=== PATIENT | female | born 1945 | race Caucasian/White ===

== ENCOUNTER 2023-05-07 08:17 | Observation (INO) | payer MEDICARE, BC, OTHER, SELFPAY ==
[2023-05-07] VITALS (31 sets, daily range): BP systolic 110–176; BP diastolic 49–79; PULSE 58–72; RESP 16–18; TEMP 37.1–37.7; O2SAT 91–97; BMI 35.2
--- NOTE | 2023-05-07 08:46 | CRLHL7_ITS ---
For Patients: As a result of the Century Cures Act, medical imaging exams and procedure reports are released immediately into your electronic medical record. You may view this report before your referring provider. If you have questions, please contact your health care provider. INDICATION: Chest pain. TECHNIQUE: CT chest PE was acquired with 95 cc Isovue 370 IV contrast. COMPARISON: None available. FINDINGS: Heart and vasculature: Contrast opacification of the pulmonary arterial tree is adequate. No sign of pulmonary embolism. Heart size is normal. Thoracic aorta and pulmonary artery are normal in caliber. AICD leads within the right atrium and ventricle. Atherosclerotic coronary artery calcifications as well as thoracic aortic calcifications. Lungs and pleura: Linear scarring versus subsegmental atelectasis in the right lower lobe. Calcified granuloma within the superior aspect of the right lower lobe. Mild dependent ground-glass opacities in both upper lobes. No suspicious pulmonary nodules. No pleural effusions, pleural thickening, or pneumothorax. Lymph nodes/mediastinum: No mediastinal, hilar, or axillary adenopathy. Calcified right hilar lymph nodes. Chest wall: AICD generator overlies the left chest. Upper abdomen: Accessory left hepatic artery arising from the left gastric artery. Bones: Unremarkable for age. IMPRESSION: 1. No evidence of pulmonary embolism. 2. Coronary and aortic atherosclerosis. Please note that all CT scans at this facility use dose modulation, iterative reconstruction, and/or weight-based dosing when appropriate to reduce radiation dose to as low as reasonably achievable. Dictated by Kamille Diaz MD @ 05/07/2023 11:35:04 AM (Electronically Signed)
--- NOTE | 2023-05-07 08:46 | CRLHL7_ITS ---
For Patients: As a result of the Century Cures Act, medical imaging exams and procedure reports are released immediately into your electronic medical record. You may view this report before your referring provider. If you have questions, please contact your health care provider. INDICATION: Nausea, weakness.. TECHNIQUE: CT abdomen and pelvis acquired with 95 cc Isovue 370 IV contrast. COMPARISON: None available.. FINDINGS: Lower chest: Linear scarring versus subsegmental atelectasis within the right lung base. Atherosclerotic coronary artery calcifications. Partially visualized pacemaker leads. Liver: Unremarkable. Normal in size and attenuation. No suspicious masses. Gallbladder and bile ducts: Unremarkable. No stones or inflammation. No biliary dilatation. Pancreas: Unremarkable. No mass or inflammation. Spleen: Calcified granulomas within the spleen. Adrenal glands: Unremarkable. No nodules. Kidneys: Unremarkable. No suspicious masses, stones, or hydronephrosis. GI tract: Unremarkable. Normal in caliber. No sign of mass or inflammation. Normal appendix. Vasculature: Abdominal aorta is normal in caliber with atherosclerotic calcifications. Mesenteric arteries are patent. Lymph nodes: No lymphadenopathy. Peritoneum/Abdominal Wall: Unremarkable. No sign of mass or infiltration. No free air or significant free fluid. Pelvis: The bladder is partially decompressed. Uterus is surgically absent. No pelvic masses identified. Bones: Right sacral nerve stimulator with generator overlying the left lower back. Multilevel degenerative disc disease involving the thoracolumbar spine. IMPRESSION: No acute abnormality identified in the abdomen or pelvis. Please note that all CT scans at this facility use dose modulation, iterative reconstruction, and/or weight-based dosing when appropriate to reduce radiation dose to as low as reasonably achievable. Dictated by Kamille Diaz MD @ 05/07/2023 11:25:15 AM (Electronically Signed)
--- NOTE | 2023-05-07 08:49 | ED_ITS ---
HPI - General Adult General Time Seen by Provider: 08:49 Date Seen: 05/07/23 Chief complaint: Chest Pain Stated complaint: weakness Time Seen by Provider: 05/07/23 08:34 Source: patient Mode of arrival: EMS History of Present Illness HPI narrative: Patient is a 77 year white female lives in [place], was seen in the [place] ED yesterday and had multiple blood tests done including cardiac enzymes and an EKG, that apparently were normal. She reports she had a negative COVID test. The patient continues to feel weak and in fact could not get out of bed today. They had to call the ambulance and they decided to come to the [place] [facility]. The patient denies chest pain, but she does report she has had several heart attacks, she did not have bypass and could not be stented as they tried, but there was no stenting completed. The patient has been on isosorbide and carvedilol. Patient also takes lisinopril. Patient really denies chest pain but says she has had some intermittent neck pain generalized weakness, no dysuria, no frequency, no cough no real specific chest pain. No leg swelling or edema. Related Data Home Medications Medication Instructions Recorded Confirmed allopurinol 100 mg tablet 200 mg PO DAILY 05/07/23 05/07/23 aspirin 81 mg tablet,delayed 81 mg PO DAILY 05/07/23 05/07/23 release (Adult Aspirin Regimen) carvedilol 6.25 mg tablet 6.25 mg PO BID 05/07/23 05/07/23 guanfacine 1 mg tablet 0.5 mg PO HS 05/07/23 05/07/23 isosorbide mononitrate 120 mg 120 mg PO DAILY 05/07/23 05/07/23 tablet,extended release 24 hr lisinopril 10 mg tablet 10 mg PO BID 05/07/23 05/07/23 nitroglycerin 0.4 mg sublingual 0.4 mg sublingual Q5M PRN 05/07/23 05/07/23 tablet omeprazole 40 mg capsule,delayed 40 mg PO DAILY 05/07/23 05/07/23 release oxybutynin chloride 5 mg 5 mg PO DAILY 05/07/23 05/07/23 tablet,extended release 24 hr Allergies Allergy/AdvReac Type Severity Reaction Status Date / Time amlodipine AdvReac Dizziness Verified 05/07/23 10:47 nortriptyline [From Pamelor] AdvReac syncope Verified 05/07/23 10:47 Review of Systems Status of ROS: Reports: 10 or more systems reviewed and unremarkable except as noted in History and below [facility] Social History Smoking Status: Never smoker Do you use any of these nicotine containing products: None How often do you have a drink containing alcohol: never How often do you have six or more drinks on one occasion: Never AUDIT-C Alcohol total score: 0 Non-prescribed substance use: denies use Exam Narrative: Exam Narrative: Objective: Patient has a temperature of 99.9?, O2 sat is 91% on room air BMI is elevated HEENT is unremarkable, mouth slightly dry, neck is supple Chest is diminished air exchange no rales or wheezing Heart rhythm rate and rhythm regular Abdomen obese nontender no masses Extremities are no edema neurologic nonfocal, chronic stasis changes in her legs, increased vascularity superficially Neurologic nonfocal moves all extremities Patient with aid was able to sit up, but she is quite weak and 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 Const: Vital Signs, click to edit/add: Vital Signs - 24 hr 05/07/23 08:26 05/07/23 09:12 05/07/23 09:15 Temperature 99.9 F H Pulse Rate 70 70 Pulse Rate [Pulse Oximeter] 72 Respiratory Rate 18 Blood Pressure Blood Pressure [Ri ght Upper Arm] 133/65 Pulse Oximetry 91 95 95 Oxygen Delivery Me thod Room Air Nasal Cannula Nasal Cannula Oxygen Flow Rate 1 1 05/07/23 09:17 05/07/23 09:41 05/07/23 09:43 Temperature Pulse Rate 70 70 70 Pulse Rate [Pulse Oximeter] Respiratory Rate Blood Pressure 110/49 L 122/61 Blood Pressure [Ri ght Upper Arm] Pulse Oximetry 95 94 93 Oxygen Delivery Me thod Nasal Cannula Nasal Cannula Nasal Cannula Oxygen Flow Rate 1 1 1 05/07/23 09:45 05/07/23 09:47 05/07/23 10:00 Temperature Pulse Rate 70 70 70 Pulse Rate [Pulse Oximeter] Respiratory Rate Blood Pressure 126/72 Blood Pressure [Ri ght Upper Arm] Pulse Oximetry 93 94 92 Oxygen Delivery Me thod Nasal Cannula Room Air Room Air Oxygen Flow Rate 1 05/07/23 10:02 05/07/23 10:09 05/07/23 10:15 Temperature Pulse Rate 70 70 Pulse Rate [Pulse Oximeter] Respiratory Rate Blood Pressure 121/56 L Blood Pressure [Ri ght Upper Arm] Pulse Oximetry 93 92 91 Oxygen Delivery Me thod Room Air Room Air Oxygen Flow Rate 05/07/23 11:12 05/07/23 11:14 05/07/23 11:15 Temperature 99.1 F Pulse Rate 70 70 Pulse Rate [Pulse Oximeter] Respiratory Rate 18 Blood Pressure Blood Pressure [Ri ght Upper Arm] Pulse Oximetry 93 94 Oxygen Delivery Me thod Room Air Oxygen Flow Rate 05/07/23 11:30 05/07/23 11:33 05/07/23 11:45 Temperature Pulse Rate 71 69 70 Pulse Rate [Pulse Oximeter] Respiratory Rate Blood Pressure 133/60 Blood Pressure [Ri ght Upper Arm] Pulse Oximetry 94 94 97 Oxygen Delivery Me thod Room Air Room Air Room Air Oxygen Flow Rate 05/07/23 12:00 05/07/23 12:02 05/07/23 12:03 Temperature Pulse Rate 69 70 70 Pulse Rate [Pulse Oximeter] Respiratory Rate Blood Pressure 134/66 Blood Pressure [Ri ght Upper Arm] Pulse Oximetry 96 95 95 Oxygen Delivery Me thod Room Air Room Air Oxygen Flow Rate 05/07/23 12:32 05/07/23 12:42 05/07/23 12:45 Temperature Pulse Rate 71 72 Pulse Rate [Pulse Oximeter] Respiratory Rate Blood Pressure 147/79 H Blood Pressure [Ri ght Upper Arm] Pulse Oximetry 93 94 Oxygen Delivery Me thod Room Air Room Air Room Air Oxygen Flow Rate Course Vital Signs Vital signs: Initial Vital Signs Temperature 99.9 F H 05/07/23 08:26 Temperature Source Temporal Artery Scan 05/07/23 08:26 Pulse Rate 72 05/07/23 08:26 Respiratory Rate 18 05/07/23 08:26 Blood Pressure 133/65 05/07/23 08:26 Blood Pressure Mean 87 05/07/23 08:26 Blood Pressure Position Sitting 05/07/23 08:26 Pulse Oximetry 91 05/07/23 08:26 Oxygen Delivery Method Room Air 05/07/23 08:26 Vital Signs Temperature 99.9 F H 05/07/23 08:26 Pulse Rate 72 05/07/23 08:26 Respiratory Rate 18 05/07/23 08:26 Blood Pressure 133/65 05/07/23 08:26 Pulse Oximetry 91 05/07/23 08:26 Oxygen Delivery Method Room Air 05/07/23 08:26 Temperature 99.4 F 05/07/23 13:49 Pulse Rate 72 05/07/23 12:45 Respiratory Rate 18 05/07/23 11:14 Blood Pressure 147/79 H 05/07/23 12:32 Pulse Oximetry 94 05/07/23 12:45 Oxygen Delivery Method Room Air 05/07/23 12:45 Oxygen Flow Rate 1 05/07/23 09:45 Medical Decision Making MDM Narrative Medical decision making narrative: [age] white female with elevated BMI, history of MIs x3 without ability to stent or bypass, [id number] diabetes presents with several day history of profound weakness, unable to get a bed today unable to walk. Patient had a negative COVID yesterday. At this point I think given her complaints of neck discomfort, low-grade fever, weakness, rule out bacteremia, rule out pulmonary infection, rule out COVID/influenza/RSV. Patient also needs to have acute coronary syndrome ruled out. Her EKG today shows normal sinus rhythm short MT interval but no acute ST T wave changes by my read. Will give her some IV fluid depending on her clinical response after lab review and imaging review, disposition planning. Lab Data Labs: Lab Results 05/07/23 05/07/23 05/07/23 Range/Units 09:00 09:12 09:25 WBC 14.74 H (4.50-11.00) K/uL RBC 3.21 L (4.00-5.20) m/uL Hgb 10.5 L (12.0-16.0) gm/dL Hct 32.2 L (33.0-51.0) % MCV 100 (80-100) fL MCH 33 (26-34) pg MCHC 33 (32-36) gm/dL RDW Coeff of Carol 14.4 (11.5-15.5) % Plt Count 258 (140-440) K/uL Neut % (Auto) 84.3 H (42.0-72.0) % Lymph % (Auto) 9.0 L (20-44) % [place] % (Auto) 6.2 (0.0-11.0) % Eos % (Auto) 0.1 (0.0-7.0) % Baso % (Auto) 0.1 (0.0-3.0) % Neut # (Auto) 12.40 H (1.7-7.0) K/uL Lymph # (Auto) 1.30 (0.90-2.90) K/uL [place] # (Auto) 0.90 (0.00-0.90) K/UL Eos # (Auto) 0.00 (0.00-0.50) K/uL Baso # (Auto) 0.00 (0.00-0.30) K/uL Abs Immat Gran (auto) 0.00 (0.00-0.30) K/uL Imm/Tot Granulo (auto) 0.3 % INR 1.05 (0.91-1.10) APTT 31 (23-33) Seconds D-Dimer Quant (PE/DVT) 0.76 H (0.00-0.50) ug/ml Sodium 136 (135-149) mmol/L Potassium 4.7 (3.6-5.1) mmol/L Chloride 108 (96-114) mmol/L Carbon Dioxide 18 L (20-32) mmol/L Anion Gap 10 (7-15) mEq/L BUN 30 (7-30) mg/dL Creatinine 1.6 H (0.5-1.5) mg/dL Estimated GFR 33 ml/min Glucose 152 H (60-115) mg/dL Calcium 9.4 (8.4-10.6) mg/dL Total Bilirubin 0.6 (0.1-1.5) mg/dL Direct Bilirubin 0.0 (0.0-0.5) mg/dL AST 22 (12-35) U/L ALT 15 (4-35) U/L Alkaline Phosphatase 91 (40-150) U/L Troponin I < 0.01 L (0.01-0.04) ng/mL C-Reactive Protein 5.9 H (0.5-1.0) mg/dL NT-Pro-B Natriuret Pep 1470 pg/mL Total Protein 6.8 (6.0-8.3) g/dL Albumin 3.8 (3.3-5.0) g/dL Urine Color Yellow (Yellow) Urine Appearance Clear (Clear) Urine pH 5.5 (5.0-8.5) Ur Specific [place] 1.020 (1.000-1.030) Urine Protein 1+ A (Negative) Urine Glucose (UA) Negative (Negative) Urine Ketones Negative (Negative) Urine Blood Negative (Negative) Urine Nitrite Negative (Negative) Urine Bilirubin Negative (Negative) Urine Urobilinogen 0.2 (0.2-1.0) Ur Leukocyte Esterase Negative (Negative) Urine RBC 0-2 (0-2) Urine WBC 0-2 (0-5) Ur Squamous Epith Cells Moderate A (None-Few) Urine Bacteria Few A (None) SARS-CoV-2 (PCR) Negative SARS-CoV-2 (Negative) Influenza Type A (PCR) Negative PCR FLU A (Negative) Influenza Type B (PCR) Negative PCR FLU B (Negative) RSV (PCR) Negative PCR RSV (Negative) POC Troponin I 0.05 H (0.01-0.04) ng/ml Discharge Plan Discharge Clinical Impression: Fever, Coronary artery disease, Weakness Patient Disposition: Admitted As Inpatient
[2023-05-07 09:17] LABS: Troponin, Point-of-Care* 0.05 ng/ml (0.01-0.04)
[2023-05-07 09:34] LABS: Basophils Percent Auto 0.1 % (0.0-3.0); Eosinophils Percent Auto 0.1 % (0.0-7.0); Hematocrit 32.2 % (33.0-51.0); Hemoglobin* 10.5 gm/dL (12.0-16.0); Immature Granulocytes Pct Auto 0.3 %; Mean Corpuscular HGB Conc 33 gm/dL (32-36); Mean Corpuscular Hemoglobin 33 pg (26-34); Mean Corpuscular Volume 100 fL (80-100); Monocytes Percent Auto 6.2 % (0.0-11.0); Neutrophils Percent Auto 84.3 % (42.0-72.0); Platelet Count* 258 K/uL (140-440); RDW Coefficient of Variation % 14.4 % (11.5-15.5); Red Blood Count 3.21 m/uL (4.00-5.20); White Blood Count* 14.74 K/uL (4.50-11.00)
[2023-05-07 09:38] LABS: Slide Review Reflex No
[2023-05-07] MEDS: 0.9 % SODIUM CHLORIDE 500 ML 500 ML IV (09:42)
[2023-05-07 09:50] LABS: INR 1.05 (0.91-1.10); Partial Thromboplastin Time* 31 Seconds (23-33); Prothrombin Time 14.4 Seconds
[2023-05-07 09:51] LABS: Albumin* 3.8 g/dL (3.3-5.0); Chloride* 108 mmol/L (96-114)
[2023-05-07 09:52] LABS: Potassium* 4.7 mmol/L (3.6-5.1); Sodium* 136 mmol/L (135-149)
[2023-05-07 09:54] LABS: Alkaline Phosphatase* 91 U/L (40-150); Aspartate Amino Transferase* 22 U/L (12-35); Bilirubin Total* 0.6 mg/dL (0.1-1.5); Blood Urea Nitrogen* 30 mg/dL (7-30); Creatinine* 1.6 mg/dL (0.5-1.5); D Dimer Quantitative* 0.76 ug/ml (0.00-0.50); Estimated Glomerular Filt Rate 33 ml/min; Total Protein* 6.8 g/dL (6.0-8.3)
[2023-05-07 09:55] LABS: Alanine Aminotransferase* 15 U/L (4-35); Calcium* 9.4 mg/dL (8.4-10.6); Glucose* 152 mg/dL (60-115)
[2023-05-07 09:57] LABS: Appearance Urine Clear (Clear); Bilirubin Urine Negative (Negative); Blood Urine Negative (Negative); Color Urine Yellow (Yellow); Glucose Urine Negative (Negative); Ketones Urine Negative (Negative); Leukocyte Esterase Urine Negative (Negative); Nitrite Urine Negative (Negative); Protein Urine 1+ (Negative); Urobilinogen Urine 0.2 (0.2-1.0); pH Urine 5.5 (5.0-8.5)
[2023-05-07 09:57] LABS: C Reactive Protein* 5.9 mg/dL (0.5-1.0)
[2023-05-07 10:02] LABS: PCR FLU A Negative PCR FLU A (Negative); PCR FLU B Negative PCR FLU B (Negative); PCR RSV Negative PCR RSV (Negative)
[2023-05-07 10:07] LABS: NT Pro B Type NatriureticPept* 1470 pg/mL; Troponin I* < 0.01 ng/mL (0.01-0.04)
[2023-05-07 10:17] LABS: SARS PCR* Negative SARS-CoV-2 (Negative)
[2023-05-07 10:22] LABS: Bacteria Urine Few; RBC Urine 0-2 (0-2); Squamous Epithelial Cell Urine Moderate (None-Few); WBC Urine 0-2 (0-5)
[2023-05-07 10:36] LABS: Anion Gap 10 mEq/L (7-15); Carbon Dioxide* 18 mmol/L (20-32)
[2023-05-07] MEDS: ONDANSETRON 2 MG/ML inj 4 MG IVP (11:08)
--- NOTE | 2023-05-07 12:13 | ED.NURSE ---
report given to media relations manager.
--- NOTE | 2023-05-07 12:53 | CRLHL7_ITS ---
For Patients: As a result of the Century Cures Act, medical imaging exams and procedure reports are released immediately into your electronic medical record. You may view this report before your referring provider. If you have questions, please contact your health care provider. INDICATION: Right upper quadrant abdomen pain TECHNIQUE: Ultrasound abdomen limited. Sonographic images of the right upper quadrant were obtained using garrett-scale and color Doppler images. COMPARISON: None FINDINGS: Liver: Mildly increased in echogenicity without focal lesion. Gallbladder: Gallbladder wall thickness upper normal. No cholelithiasis or gallbladder sludge. No pericholecystic fluid. Common bile duct: 7 mm. Pancreas: Partially obscured by bowel gas without discrete lesion. Right kidney: Normal in size. Normal echotexture and cortex. No masses, stones, or hydronephrosis. Vasculature: Proximal abdominal aorta and IVC are normal. IMPRESSION: 1. No evidence of cholelithiasis or cholecystitis. 2. Borderline diameter common duct is 7 millimeters. No choledocholithiasis seen although parts of distal duct are obscured by bowel gas. 3. Mild hepatic steatosis. Dictated by Bob Fall MD @ 05/07/2023 3:17:56 PM (Electronically Signed)
[2023-05-07] MEDS: 0.9 % SODIUM CHLORIDE 1000 ml 1,000 ML 125 ML IV (13:49)
[2023-05-07] MEDS: ACETAMINOPHEN 325 MG TABLET 650 MG PO ×2 (13:49→20:06)
[2023-05-07 15:50] LABS: Lactate* 0.7 mmol/L (0.5-1.9)
--- NOTE | 2023-05-07 16:07 | P.IMHP_ITS ---
Hospitalist- H&P: HPI History of Present Illness Date Seen: 05/08/23 Chief complaint: weakness Narrative: Sarahy Leigh is a 77 year old female with coronary artery disease, diabetes mellitus, chronic weakness admitted to the hospital with 1 day history of prominent illness. Starting between 4 and 5:00 p.m. yesterday she noted that she had a relatively abrupt onset of nausea profound fatigue malaise and weakness. She works at a senior center doing activities. She was at work when the her symptoms began. She went home and laid down. She then became simply too weak to get up out of bed. She had multiple recurrent emesis of a clear fluid these were nonbloody. She also had diarrhea. She has chronic diarrhea so she did not think much of this. There was no blood in her diarrhea. She did not have specific abdominal pain with this. She went to the [facility] in [place] for evaluation. She had evaluation there including normal troponins, relatively normal lab studies, unchanged electrocardiogram, normal COVID and flu testing and x-ray. From this evaluation no diagnosis was made she was discharged to home with some ondansetron. This morning she woke up and remained unable to get out of bed due to weakness. She continued to have prominent nausea and has had nothing to eat or drink. She has got pro prominent fatigue as well. She does report achiness. She has chronic leg achiness which is not new last night she had bilateral neck pain and she reported that happened again today. She received some nitroglycerin from the paramedics and she thinks that that seemed to help her neck pain. She is not having specifically headache, chest pain, abdominal pain. She does occasionally have back pain but that is not significant change from her baseline. She has had chills and wonders if she has had a fever but apparently no fever has been documented. She has not had cold symptoms. No sore throat. No significant cough or dyspnea. She does have chronic dyspnea which is unchanged. Gastrointestinal symptoms as noted above. No new urinary symptoms including urgency or dysuria. She has chronic urinary frequency. She has previously had bladder problems with bladder stimulators placed and she is on chronic did Triptan and none of this is been working well for her. Acute abdominal symptoms are noted above. She does tell me that for a long time she has had chronic diarrhea she is not aware that this has been ever evaluated in the past. She has intolerance of fried foods which make her diarrhea worse. She has postprandial nausea and bloating often as well. Past history of coronary disease which was not amenable to intervention. Nine years ago she had angiograms x2 with an unsuccessful attempt at stent placement both times. Angiogram found left main was relatively free of disease. LAD had 30% stenosis proximally. This is a 50% stenosis in the 1st diagonal. 100% stenosis in the proximal circumflex. Right coronary is dominant and mild irregularities. She had a nuclear stress test April of 2021 showing a medium-sized area of moderate ischemia in the anterior and anterolateral left ventricle, a small area of mild to moderate ischemia in the apical inferior wall the left ventricle and a medium-sized mid and basal inferolateral wall infarct. Her ejection fraction was 63% with mild hypokinesis of the inferolateral wall of the base Review of Systems Narrative: Patient reports that she has been in her usual state of health until the last day. She does have chronic weakness and walks with a walker when she goes out. When she goes to [employer] to use a cane. Her biggest problem with mobility is she has a hard time getting out of a chair. When she is up walking she reports she does pretty well. She has chronic leg aching. This is been going on for years. She was tried on gabapentin which was of no value for her. She has diabetes which is treated with diet alone. She is on a low carb diet and reports her hemoglobin A1c was well controlled. She is no longer on medication for that. As noted above she has chronic urinary frequency and chronic diarrhea which are unchanged from previously. [facility] Medical History (Updated 05/07/23 @ 16:35 by Daquan Cook MD) H/O coronary angiogram ?Z98.890 - Other specified postprocedural states (ICD-10) Hyperparathyroidism ?E21.3 - Hyperparathyroidism, unspecified (ICD-10) Dyspepsia ?R10.13 - Epigastric pain (ICD-10) Depression ?F32.A - Depression, unspecified (ICD-10) Cardiac defibrillator in place ?Z95.810 - Presence of automatic (implantable) cardiac defibrillator (ICD-10) History of pacemaker ?Z95.0 - Presence of cardiac pacemaker (ICD-10) Obesity ?E66.9 - Obesity, unspecified (ICD-10) Chronic dyspnea ?R06.09 - Other forms of dyspnea (ICD-10) Diabetes mellitus ?E11.9 - Type 2 diabetes mellitus without complications (ICD-10) Surgical History (Updated 05/07/23 @ 16:25 by Daquan Cook MD) H/O abdominal hysterectomy ?Z90.710 - Acquired absence of both cervix and uterus (ICD-10) History of esophagogastroduodenoscopy (EGD) ?Z98.890 - Other specified postprocedural states (ICD-10) History of ?Z98.891 - History of uterine scar from previous surgery (ICD-10) H/O parathyroidectomy ?E89.2 - Postprocedural hypoparathyroidism (ICD-10) Family History (Updated 05/07/23 @ 16:26 by Daquan Cook MD) Brother Alcohol dependence Colon cancer Mother Diabetes Heart disease Stroke Daughter Diabetes Father Heart disease Social History (Updated 05/07/23 @ 16:28 by Daquan Cook MD) Narrative: Patient lives with her in [place]. She also has a daughter who lives downstairs in her house. Healthcare power of consumer attorney is her Wero and daughter Aleshia. Code status is full code for witnessed arrest and DNR for unwitnessed arrest. She does not smoke. She does not drink alcohol. What is your current living situation?: I presently have a place to live Problems where you live: no known problems Problems where you live details: No known problems In the past 12 months, utilities in danger of being shut off: no In past 12 months, lack of transportation kept you from medical appts, meetings, work, or getting things needed for daily living: no In the past 12 mos, have been you worried that your food would run out before you had money to buy more?: never true In the past 12 mos, the food you bought just didn't last and you didn't have money to buy more?: never true Highest level of school completed/degree received: 12th grade, no diploma Smoking Status: Never smoker Do you use any of these nicotine containing products: None How often do you have a drink containing alcohol: never How often do you have six or more drinks on one occasion: Never AUDIT-C Alcohol total score: 0 Non-prescribed substance use: denies use Caffeine: Yes How often does anyone, including family, friends and others, physically hurt you : never How often does anyone, including family, friends and others, insult or talk down to you: never How often does anyone, including family, friends and others, threaten you with harm: never How often does anyone, including family, friends and others, scream or curse at you: never service: No Meds Home Medications and Allergies Home Medications Medication Instructions Recorded Confirmed Type allopurinol 100 mg tablet 200 mg PO DAILY 05/07/23 05/07/23 History aspirin 81 mg tablet,delayed 81 mg PO DAILY 05/07/23 05/07/23 History release (Adult Aspirin Regimen) carvedilol 6.25 mg tablet 6.25 mg PO BID 05/07/23 05/07/23 History guanfacine 1 mg tablet 0.5 mg PO HS 05/07/23 05/07/23 History isosorbide mononitrate 120 mg 120 mg PO DAILY 05/07/23 05/07/23 History tablet,extended release 24 hr lisinopril 10 mg tablet 10 mg PO BID 05/07/23 05/07/23 History nitroglycerin 0.4 mg sublingual 0.4 mg sublingual Q5M PRN 05/07/23 05/07/23 History tablet omeprazole 40 mg capsule,delayed 40 mg PO DAILY 05/07/23 05/07/23 History release oxybutynin chloride 5 mg 5 mg PO DAILY 05/07/23 05/07/23 History tablet,extended release 24 hr Allergies Allergy/AdvReac Type Severity Reaction Status Date / Time amlodipine AdvReac Dizziness Verified 05/07/23 10:47 nortriptyline [From Pamelor] AdvReac syncope Verified 05/07/23 10:47 Exam Narrative: Exam Narrative: She is alert and oriented and gives her own history. She is tired appearing but otherwise in no obvious distress. Eyes are normal. Oropharynx with small airway. No mucosal abnormalities. Neck is supple without mass or adenopathy. No apparent jugular venous distension. She has no tenderness with palpation of her neck. She moves her neck without significant pain. Respirations are clear to auscultation. No wheezing rales or rhonchi. Cardiovascular: S1, S2, regular rate and rhythm. No murmur gallop or rub. Abdomen: Bowel sounds active. Abdomen is soft. She has mild right upper quadrant tenderness. No mass. No peritonitis. External genitalia normal. Extremities are normal. She has 5/5 strength in shoulder flexion and extension, elbow flexion and extension, wrist flexion extension, finger extension bilaterally. Hip flexion bilaterally is 4/5. Knee flexion and extension, ankle dorsiflexion plantar flexion and great toe dorsiflexion bilaterally 5/5. No significant edema. Intact pedal pulses. [id number] is normal and accurate. Extraocular movements are full. Visual hull are intact. There is no facial asymmetry. No rash. Const: Vital Signs, click to edit/add: Vital Signs - 24 hr 05/07/23 08:26 05/07/23 09:12 05/07/23 09:15 Temperature 99.9 F H Pulse Rate 70 70 Pulse Rate [Pulse Oximeter] 72 Respiratory Rate 18 Blood Pressure Blood Pressure [Ri ght Arm] Blood Pressure [Ri ght Upper Arm] 133/65 Pulse Oximetry 91 95 95 Oxygen Delivery Me thod Room Air Nasal Cannula Nasal Cannula Oxygen Flow Rate 1 1 05/07/23 09:17 05/07/23 09:41 05/07/23 09:43 Temperature Pulse Rate 70 70 70 Pulse Rate [Pulse Oximeter] Respiratory Rate Blood Pressure 110/49 L 122/61 Blood Pressure [Ri ght Arm] Blood Pressure [Ri ght Upper Arm] Pulse Oximetry 95 94 93 Oxygen Delivery Me thod Nasal Cannula Nasal Cannula Nasal Cannula Oxygen Flow Rate 1 1 1 05/07/23 09:45 05/07/23 09:47 05/07/23 10:00 Temperature Pulse Rate 70 70 70 Pulse Rate [Pulse Oximeter] Respiratory Rate Blood Pressure 126/72 Blood Pressure [Ri ght Arm] Blood Pressure [Ri ght Upper Arm] Pulse Oximetry 93 94 92 Oxygen Delivery Me thod Nasal Cannula Room Air Room Air Oxygen Flow Rate 1 05/07/23 10:02 05/07/23 10:09 05/07/23 10:15 Temperature Pulse Rate 70 70 Pulse Rate [Pulse Oximeter] Respiratory Rate Blood Pressure 121/56 L Blood Pressure [Ri ght Arm] Blood Pressure [Ri ght Upper Arm] Pulse Oximetry 93 92 91 Oxygen Delivery Me thod Room Air Room Air Oxygen Flow Rate 05/07/23 11:12 05/07/23 11:14 05/07/23 11:15 Temperature 99.1 F Pulse Rate 70 70 Pulse Rate [Pulse Oximeter] Respiratory Rate 18 Blood Pressure Blood Pressure [Ri ght Arm] Blood Pressure [Ri ght Upper Arm] Pulse Oximetry 93 94 Oxygen Delivery Me thod Room Air Oxygen Flow Rate 05/07/23 11:30 05/07/23 11:33 05/07/23 11:45 Temperature Pulse Rate 71 69 70 Pulse Rate [Pulse Oximeter] Respiratory Rate Blood Pressure 133/60 Blood Pressure [Ri ght Arm] Blood Pressure [Ri ght Upper Arm] Pulse Oximetry 94 94 97 Oxygen Delivery Me thod Room Air Room Air Room Air Oxygen Flow Rate 05/07/23 12:00 05/07/23 12:02 05/07/23 12:03 Temperature Pulse Rate 69 70 70 Pulse Rate [Pulse Oximeter] Respiratory Rate Blood Pressure 134/66 Blood Pressure [Ri ght Arm] Blood Pressure [Ri ght Upper Arm] Pulse Oximetry 96 95 95 Oxygen Delivery Me thod Room Air Room Air Oxygen Flow Rate 05/07/23 12:32 05/07/23 12:42 05/07/23 12:45 Temperature Pulse Rate 71 72 Pulse Rate [Pulse Oximeter] Respiratory Rate Blood Pressure 147/79 H Blood Pressure [Ri ght Arm] Blood Pressure [Ri ght Upper Arm] Pulse Oximetry 93 94 Oxygen Delivery Me thod Room Air Room Air Room Air Oxygen Flow Rate 05/07/23 13:19 05/07/23 13:19 05/07/23 13:49 Temperature 99.5 F 99.4 F Pulse Rate Pulse Rate [Pulse Oximeter] 71 Respiratory Rate 18 Blood Pressure Blood Pressure [Ri ght Arm] 176/72 H Blood Pressure [Ri ght Upper Arm] Pulse Oximetry 95 95 Oxygen Delivery Me thod Room Air Room Air Oxygen Flow Rate Documenting provider has reviewed patient's vital signs: yes Hospitalist - H&P: Result Labs Labs: Short CBC 05/07/23 Range/Units 09:00 WBC 14.74 H (4.50-11.00) K/uL Hgb 10.5 L (12.0-16.0) gm/dL Hct 32.2 L (33.0-51.0) % Plt Count 258 (140-440) K/uL BMP 05/07/23 09:00 Sodium 136 Potassium 4.7 Chloride 108 Carbon Dioxide 18 L BUN 30 Creatinine 1.6 H Glucose 152 H Calcium 9.4 Cardiac Enzymes 05/07/23 Range/Units 09:00 Troponin I < 0.01 L (0.01-0.04) ng/mL Liver Function 05/07/23 Range/Units 09:00 Total Bilirubin 0.6 (0.1-1.5) mg/dL Direct Bilirubin 0.0 (0.0-0.5) mg/dL AST 22 (12-35) U/L ALT 15 (4-35) U/L Alkaline Phosphatase 91 (40-150) U/L Albumin 3.8 (3.3-5.0) g/dL Urine 05/07/23 Range/Units 09:25 Urine Color Yellow (Yellow) Urine Appearance Clear (Clear) Urine pH 5.5 (5.0-8.5) Ur Specific [place] 1.020 (1.000-1.030) Urine Protein 1+ A (Negative) Urine Glucose (UA) Negative (Negative) ECG Attestation: I personally reviewed and interpreted this ECG as follows: (Atrial paced regular rhythm. No acute changes) ECG interpretation date: 05/07/[address] scan - abdomen: Radiologist's impression: NDICATION: Nausea, weakness.. TECHNIQUE: CT abdomen and pelvis acquired with 95 cc Isovue 370 IV contrast. COMPARISON: None available.. FINDINGS: Lower chest: Linear scarring versus subsegmental atelectasis within the right lung base. Atherosclerotic coronary artery calcifications. Partially visualized pacemaker leads. Liver: Unremarkable. Normal in size and attenuation. No suspicious masses. Gallbladder and bile ducts: Unremarkable. No stones or inflammation. No biliary dilatation. Pancreas: Unremarkable. No mass or inflammation. Spleen: Calcified granulomas within the spleen. Adrenal glands: Unremarkable. No nodules. Kidneys: Unremarkable. No suspicious masses, stones, or hydronephrosis. GI tract: Unremarkable. Normal in caliber. No sign of mass or inflammation. Normal appendix. Vasculature: Abdominal aorta is normal in caliber with atherosclerotic calcifications. Mesenteric arteries are patent. Lymph nodes: No lymphadenopathy. Peritoneum/Abdominal Wall: Unremarkable. No sign of mass or infiltration. No free air or significant free fluid. Pelvis: The bladder is partially decompressed. Uterus is surgically absent. No pelvic masses identified. Bones: Right sacral nerve stimulator with generator overlying the left lower back. Multilevel degenerative disc disease involving the thoracolumbar spine. IMPRESSION: No acute abnormality identified in the abdomen or pelvis. CT scan - chest: Radiologist's impression: INDICATION: Chest pain. TECHNIQUE: CT chest PE was acquired with 95 cc Isovue 370 IV contrast. COMPARISON: None available. FINDINGS: Heart and vasculature: Contrast opacification of the pulmonary arterial tree is adequate. No sign of pulmonary embolism. Heart size is normal. Thoracic aorta and pulmonary artery are normal in caliber. AICD leads within the right atrium and ventricle. Atherosclerotic coronary artery calcifications as well as thoracic aortic calcifications. Lungs and pleura: Linear scarring versus subsegmental atelectasis in the right lower lobe. Calcified granuloma within the superior aspect of the right lower lobe. Mild dependent ground-glass opacities in both upper lobes. No suspicious pulmonary nodules. No pleural effusions, pleural thickening, or pneumothorax. Lymph nodes/mediastinum: No mediastinal, hilar, or axillary adenopathy. Calcified right hilar lymph nodes. Chest wall: AICD generator overlies the left chest. Upper abdomen: Accessory left hepatic artery arising from the left gastric artery. Bones: Unremarkable for age. IMPRESSION: 1. No evidence of pulmonary embolism. 2. Coronary and aortic atherosclerosis. US - abdomen: Radiologist's impression: INDICATION: Right upper quadrant abdomen pain TECHNIQUE: Ultrasound abdomen limited. Sonographic images of the right upper quadrant were obtained using garrett-scale and color Doppler images. COMPARISON: None FINDINGS: Liver: Mildly increased in echogenicity without focal lesion. Gallbladder: Gallbladder wall thickness upper normal. No cholelithiasis or gallbladder sludge. No pericholecystic fluid. Common bile duct: 7 mm. Pancreas: Partially obscured by bowel gas without discrete lesion. Right kidney: Normal in size. Normal echotexture and cortex. No masses, stones, or hydronephrosis. Vasculature: Proximal abdominal aorta and IVC are normal. IMPRESSION: 1. No evidence of cholelithiasis or cholecystitis. 2. Borderline diameter common duct is 7 millimeters. No choledocholithiasis seen although parts of distal duct are obscured by bowel gas. 3. Mild hepatic steatosis. Assessment and Plan Assessment and plan (1) Nausea and vomiting: Problem comment: Uncertain cause. Status: Acute (2) Dyspepsia: Problem comment: Acutely worse but reporting chronic symptoms particularly related to certain foods especially fried foods. Status: Acute (3) Leukocytosis: Problem comment: Suspect infection but source of infection not clear Status: Acute (4) Weakness: Problem comment: Chronically has trouble getting out of a chair and walks with a cane or a walker. Acutely is unable to get out of a chair or bed even with the assistance of family Status: Acute (5) Coronary artery disease: Problem comment: 2013 had coronary artery angiogram showing moderate disease but not amenable to stenting. April 2021 had nuclear stress test showing areas of ischemia and infarction. Medical management ongoing Status: Acute (6) Fever: Problem comment: Subjective fever and chills at home. Likely suggesting infection. Source of infection not clear. Status: Acute Plan Patient is admitted to the hospital for evaluation management of multiple constitutional symptoms of illness above. Looking for serious infection or inflammatory process causing her current illness. Test so far do not show an o bvious source. Evaluation remains ongoing during this period of observation. Total time spent on the day of admission his 75 minutes, 50 minutes in coordination of care discussing with patient family ongoing evaluation management of nausea vomiting weakness and suspected infection
[2023-05-07 16:12] LABS: Magnesium* 1.5 mg/dL (1.5-2.6)
[2023-05-07 16:23] LABS: Troponin I* 0.01 ng/mL (0.01-0.04)
[2023-05-07 16:28] LABS: Procalcitonin* 0.44 ng/mL (<0.50)
[2023-05-07 16:32] LABS: Erythrocyte SedimentationRate* 34 mm/hr (2-20)
[2023-05-07 16:49] LABS: Thyroid Stimulating Hormone* 0.748 uIU/mL (0.270-4.20)
--- NOTE | 2023-05-07 18:01 | PC.NURSE ---
Patient up to floor at 1250 accompanied by dtr and . Alert and oriented x4. VSS, 95% on RA. Patient rates pain 0/10, denies N/V/SOB or Chest pain. Patient is a SBA with walker/GB. Cont. of bowel and bladder. Up to chair for meals, tolerating a reg diet. [id number]. uses call light appropriately.
[2023-05-07] MEDS: MAGNESIUM IV 2 GM/50 ML PIGGYBACK IVPB (18:31)
[2023-05-07 19:53] LABS: Creatine Kinase* 72 U/L (41-117)
[2023-05-07] MEDS: carvediloL 6.25 MG TABLET PO (20:18)
[2023-05-07] MEDS: lisinopriL 10 MG TABLET PO (20:18)
[2023-05-07] MEDS: MELATONIN 3 MG TABLET PO (20:18)
--- NOTE | 2023-05-07 22:26 | PC.NURSE ---
End of shift [id number]: Patient alert and oriented x 4. Reports generalized aching, PRN tylenol administered with effective results. Denies any nausea, vomiting or diarrhea. Patient reporting feeling cold, temp 99.6, requested warm blankets due to chills. Transfers with min assist to SBA, ambulates with walker and gait belt. Patient has stress incontinence, did request assist x 2 to the bathroom and able to void. at 0 patient reported feeling diaphoretic and warm, requested cold packs for neck and forehead. At 2200 patient requested blood glucose check as she has similar symptoms when her blood sugar is low, BG 122. Temperature re-checked and was 99.7.
[2023-05-08] VITALS (10 sets, daily range): BP systolic 131–154; BP diastolic 52–73; PULSE 64–71; RESP 16–18; TEMP 36.7–37.6; O2SAT 94–96
[2023-05-08] MEDS: 0.9 % SODIUM CHLORIDE 1000 ml 1,000 ML 125 ML IV ×2 (00:01→08:08)
[2023-05-08] MEDS: ACETAMINOPHEN 325 MG TABLET 650 MG PO ×3 (03:28→21:03)
--- NOTE | 2023-05-08 06:23 | PC.NURSE ---
End of shift from [id number]: Pt alert and orientated. Temp of 99.7 overnight. Tylenol given w/ a recheck temp of 98.6 VS otherwise stable w/ sats >90% on RA. Denying n/v. Denies pain. Bowel sounds active. Abd tender on palpation. A1 w/ walker and gait belt.
[2023-05-08 06:37] LABS: Basophils Percent Auto 0.1 % (0.0-3.0); Eosinophils Percent Auto 0.1 % (0.0-7.0); Hematocrit 30.1 % (33.0-51.0); Hemoglobin* 9.7 gm/dL (12.0-16.0); Immature Granulocytes Pct Auto 0.3 %; Lymphocytes Percent Auto 13.2 % (20-44); Mean Corpuscular HGB Conc 32 gm/dL (32-36); Mean Corpuscular Hemoglobin 32 pg (26-34); Mean Corpuscular Volume 101 fL (80-100); Monocytes Percent Auto 6.9 % (0.0-11.0); Neutrophils Percent Auto 79.4 % (42.0-72.0); Platelet Count* 211 K/uL (140-440); RDW Coefficient of Variation % 14.4 % (11.5-15.5); Red Blood Count 2.99 m/uL (4.00-5.20); White Blood Count* 15.27 K/uL (4.50-11.00)
[2023-05-08 06:52] LABS: Slide Review Reflex No
[2023-05-08 07:45] LABS: Chloride* 111 mmol/L (96-114); Potassium* 4.3 mmol/L (3.6-5.1); Sodium* 136 mmol/L (135-149)
[2023-05-08 07:47] LABS: Creatinine* 1.5 mg/dL (0.5-1.5); Estimated Glomerular Filt Rate 36 ml/min
[2023-05-08 07:48] LABS: Anion Gap 10 mEq/L (7-15); Blood Urea Nitrogen* 26 mg/dL (7-30); Carbon Dioxide* 15 mmol/L (20-32); Glucose* 131 mg/dL (60-115)
[2023-05-08 07:49] LABS: Magnesium* 2.1 mg/dL (1.5-2.6)
[2023-05-08] MEDS: ASPIRIN 81 MG TABLET EC PO (08:53)
[2023-05-08] MEDS: ISOSORBIDE MONONITRATE ER 30 MG TAB 120 MG PO (08:53)
[2023-05-08] MEDS: oxyBUTYnin chloride 5 MG TAB.ER.24 PO (08:53)
[2023-05-08] MEDS: OMEPRAZOLE 20 MG CAPSULE DR 40 MG PO (08:53)
[2023-05-08] MEDS: lisinopriL 10 MG TABLET PO (08:53)
[2023-05-08] MEDS: carvediloL 6.25 MG TABLET PO ×2 (08:53→21:00)
[2023-05-08] MEDS: allopurinoL 100 MG TABLET 200 MG PO (08:56)
[2023-05-08] MEDS: SODIUM CHLORIDE 0.9 % (FLUSH) 10 ML SYRINGE 5 ML IVF ×2 (08:57→21:01)
[2023-05-08] MEDS: cefTRIAXone 1 GM in 0.9 % SODIUM CHLORIDE Mini-bag 100 ML IVPB (14:59)
--- NOTE | 2023-05-08 17:09 | PM.IMPN1 ---
Progress Note: A&P Assessment and plan (1) Fever: Problem details: Subjective fever and chills at home. Likely suggesting infection. Source of infection not clear. Status: Acute (2) Nausea and vomiting: Problem details: Uncertain cause. Status: Acute (3) Weakness: Problem details: Chronically has trouble getting out of a chair and walks with a cane or a walker. Acutely is unable to get out of a chair or bed even with the assistance of family. Previous neurologic evaluation a few months ago led to no diagnosis. Clinically I suspect a neurologic problem with weakness in her voice as well as chronic weakness in her legs.. Status: Acute (4) Leukocytosis: Problem details: Suspect infection but source of infection not clear Status: Acute (5) Dyspepsia: Problem details: Acutely worse but reporting chronic symptoms particularly related to certain foods especially fried foods. Status: Acute (6) Chronic dyspnea: Problem details: Chronic dyspnea with exertion. Combination of deconditioning, heart disease, obesity Status: Acute (7) Diabetes mellitus: Problem details: Type 2 diabetes managed well with low carb diet and no medication. Status: Acute (8) Coronary artery disease: Problem details: 2013 had coronary artery angiogram showing moderate disease but not amenable to stenting. April 2021 had nuclear stress test showing areas of ischemia and infarction. Medical management ongoing Status: Acute (9) Metabolic acidosis: Problem details: Normal anion gap. Bicarb is lower today. Stop normal saline. Poor p.o. intake. Reassess tomorrow. Status: Acute Plan Continue in hospital for another day of monitoring and pending cultures. Possible discharge to home tomorrow if continued clinical improvement. Time Spent With Patient Total time spent: Total time spent today is 40 minutes, 30 minutes in coordination of care discussing with patient, and other providers ongoing evaluation management of this acute illness. Subjective Date Seen: 05/08/23 Interval history: 77-year-old female admitted to the hospital with recent illness of profound weakness, fatigue, nausea, vomiting, chills. Initial evaluation did not show any obvious cause of her current illness. This was suspected to be an infectious process given the relatively acute onset and the symptoms of fever and chills that she experienced. Overnight she reports feeling better. She was strong enough to ambulate with physical therapy today she still reports having no appetite but she has had no more vomiting today. She has not had any fever that she is aware of. No cough, chest pain, shortness of breath, abdominal pain. She normally has some chronic diarrhea which has not been a problem today. She has no urinary symptoms but her urine culture is growing greater than 100,000 colonies. Id and sensitivity pending. Exam Narrative: Exam Narrative: She is alert pleasant and in no distress. Mood and affect are brighter today. Eyes normal. Oropharynx normal neck is supple without mass or adenopathy. Respirations are clear to auscultation. Good air exchange all lung hull. Cardiovascular: S1, S2, regular rate and rhythm. Abdomen is soft without tenderness or mass. Extremities without edema. Const: Vital Signs, click to edit/add: Vital Signs - 24 hr 05/07/23 19:00 05/07/23 23:19 05/07/23 23:23 Temperature 99.6 F 98.8 F Pulse Rate 70 Pulse Rate [Pulse Oximeter] 58 L 70 Respiratory Rate 18 16 Blood Pressure [Ri ght Arm] 152/60 H 135/55 L Pulse Oximetry 93 93 Oxygen Delivery Me thod Room Air Room Air 05/08/23 03:20 05/08/23 04:31 05/08/23 07:00 Temperature 99.7 F H 98.6 F Pulse Rate 71 Pulse Rate [Pulse Oximeter] 71 Respiratory Rate 16 Blood Pressure [Ri ght Arm] 150/69 H Pulse Oximetry 94 Oxygen Delivery Me thod Room Air 05/08/23 07:00 05/08/23 08:02 05/08/23 11:00 Temperature 98.1 F 99.0 F Pulse Rate Pulse Rate [Pulse Oximeter] 64 64 71 Respiratory Rate 16 16 16 Blood Pressure [Ri ght Arm] 149/67 H 131/73 Pulse Oximetry 94 94 Oxygen Delivery Me thod Room Air Room Air 05/08/23 15:00 05/08/23 15:00 Temperature 98.7 F Pulse Rate Pulse Rate [Pulse Oximeter] 71 71 Respiratory Rate 16 16 Blood Pressure [Ri ght Arm] 138/52 L Pulse Oximetry 96 Oxygen Delivery Me thod Room Air Documenting provider has reviewed patient's vital signs: yes Labs Labs: Laboratory Results - last 24 hr 05/07/23 05/07/23 05/08/23 15:45 19:29 05:54 WBC 15.27 H RBC 2.99 L Hgb 9.7 L Hct 30.1 L MCV 101 H MCH 32 MCHC 32 RDW Coeff of Carol 14.4 Plt Count 211 Neut % (Auto) 79.4 H Lymph % (Auto) 13.2 L Addison % (Auto) 6.9 Eos % (Auto) 0.1 Baso % (Auto) 0.1 Neut # (Auto) 12.10 H Lymph # (Auto) 2.00 Addison # (Auto) 1.10 H Eos # (Auto) 0.00 Baso # (Auto) 0.00 Abs Immat Gran (auto) 0.00 Imm/Tot Granulo (auto) 0.3 Sodium 136 Potassium 4.3 Chloride 111 Carbon Dioxide 15 L Anion Gap 10 BUN 26 Creatinine 1.5 Estimated Creat Clear 29.40 Estimated GFR 36 Glucose 131 H Calcium 9.0 Magnesium 2.1 Total Creatine Kinase 72 C-Reactive Protein 9.0 H Lab Acknowledgement Test Added
--- NOTE | 2023-05-08 18:55 | PC.NURSE ---
End of shift note: Patient is alert and oriented x4. VSS, 95% on RA. Patient rates pain 0/10, denies N/V/SOB or Chest pain. Patient is a SBA with walker/GB. Cont. of bowel and bladder. Up to chair for meals, tolerating a reg diet. [id number]. uses call light appropriately.
[2023-05-08] MEDS: MELATONIN 3 MG TABLET PO (21:00)
--- NOTE | 2023-05-09 00:04 | PC.NURSE ---
End of Shift: Patient pleasant and cooperative. Afebrile. PRN Tylenol given x1 for generalized achiness. Up to bathroom with SBA, walker and gait belt.
[2023-05-09 03:07] VITALS: PULSE 70
[2023-05-09 04:00] VITALS: BP 149/67; PULSE 72; RESP 18; TEMP 36.1; O2SAT 94
--- NOTE | 2023-05-09 05:32 | PC.NURSE ---
Reports sleeping well. VSS, afebrile. Increase in weight from yesterday morning per standing scale. States she is feeling better, moving around better than previous day- SBA.
[2023-05-09 07:16] LABS: Basophils Absolute Auto 0.01 K/uL (0.00-0.30); Basophils Percent Auto 0.1 % (0.0-3.0); Eosinophils Absolute Auto 0.25 K/uL (0.00-0.50); Eosinophils Percent Auto 2.6 % (0.0-7.0); Hematocrit 30.2 % (33.0-51.0); Hemoglobin* 9.5 gm/dL (12.0-16.0); Immature Granulocytes Abs Auto 0.03 K/uL (0.00-0.30); Immature Granulocytes Pct Auto 0.3 %; Lymphocytes Percent Auto 17.4 % (20-44); Mean Corpuscular HGB Conc 32 gm/dL (32-36); Mean Corpuscular Hemoglobin 33 pg (26-34); Mean Corpuscular Volume 103 fL (80-100); Monocytes Percent Auto 7.3 % (0.0-11.0); Neutrophils Percent Auto 72.3 % (42.0-72.0); Platelet Count* 213 K/uL (140-440); RDW Coefficient of Variation % 14.2 % (11.5-15.5); Red Blood Count 2.92 m/uL (4.00-5.20); White Blood Count* 9.71 K/uL (4.50-11.00)
[2023-05-09 07:41] LABS: Chloride* 114 mmol/L (96-114); Sodium* 139 mmol/L (135-149)
[2023-05-09 07:42] LABS: Potassium* 4.5 mmol/L (3.6-5.1)
[2023-05-09 07:44] LABS: Creatinine* 1.3 mg/dL (0.5-1.5); Est. Creatinine Clearance* 33.93; Estimated Glomerular Filt Rate 42 ml/min; Slide Review Reflex No
[2023-05-09 07:45] LABS: Anion Gap 8 mEq/L (7-15); Blood Urea Nitrogen* 22 mg/dL (7-30); Calcium* 9.3 mg/dL (8.4-10.6); Carbon Dioxide* 17 mmol/L (20-32); Glucose* 114 mg/dL (60-115); Phosphorus* 3.4 mg/dL (2.5-4.5); Uric Acid* 6.7 mg/dL (2.2-8.4)
[2023-05-09] MEDS: allopurinoL 100 MG TABLET 200 MG PO (07:49)
[2023-05-09] MEDS: OMEPRAZOLE 20 MG CAPSULE DR 40 MG PO (07:49)
[2023-05-09] MEDS: ISOSORBIDE MONONITRATE ER 30 MG TAB 120 MG PO (07:49)
[2023-05-09] MEDS: oxyBUTYnin chloride 5 MG TAB.ER.24 PO (07:50)
[2023-05-09] MEDS: SODIUM CHLORIDE 0.9 % (FLUSH) 10 ML SYRINGE 5 ML IVF (07:50)
[2023-05-09] MEDS: ACETAMINOPHEN 325 MG TABLET 650 MG PO (07:50)
[2023-05-09] MEDS: ASPIRIN 81 MG TABLET EC PO (07:50)
[2023-05-09 07:54] VITALS: BP 157/58; PULSE 70; RESP 16; TEMP 36.8; O2SAT 95
[2023-05-09 07:59] LABS: C Reactive Protein* 13.2 mg/dL (0.5-1.0)
[2023-05-09 08:00] VITALS: PULSE 70
[2023-05-09] MEDS: AMOXICILLIN 250 MG CAPSULE 500 MG PO ×2 (08:11→12:46)
[2023-05-09] MEDS: ONDANSETRON 2 MG/ML inj 4 MG IVP (08:12)
[2023-05-09] MEDS: carvediloL 6.25 MG TABLET PO (08:13)
--- NOTE | 2023-05-09 16:28 | PC.NURSE ---
Discharge Note: The patient discharged home @1445 this afternoon... The patient was educated on all medications, follow up suggestions and when to come in if needed again. All questions were answered. VSS on RA. No complaints of pain upon discharge. No nausea or vomiting upon discharge. All discharge paperwork was sent with the patient. All belongings were sent home with the patient as well.
--- NOTE | 2023-05-12 12:36 | P.DS_ITS ---
DS: Providers Provider Date Seen: 05/12/23 Date of admission: 05/07/23 12:58 Primary care physician: Anthony Ortiz MD Admitting Clinician: Daquan Cook MD Attending Physician on discharge: Daquan Cook MD Date of Discharge: 05/09/23 DS: Diagnosis Discharge Diagnosis (1) Fever: Status: Acute Problem details: Subjective fever and chills at home. Likely suggesting infection. Had UTI. Treat with amoxicillin for Proteus mirabilis. (2) Coronary artery disease: Status: Acute Problem details: 2013 had coronary artery angiogram showing moderate disease but not amenable to stenting. April 2021 had nuclear stress test showing areas of ischemia and infarction. Medical management ongoing (3) Weakness: Status: Acute Problem details: Chronically has trouble getting out of a chair and walks with a cane or a walker. Acutely is unable to get out of a chair or bed even with the assistance of family. Previous neurologic evaluation a few months ago led to no diagnosis. Clinically I suspect a neurologic problem with weakness in her voice as well as chronic weakness in her legs.. (4) Leukocytosis: Status: Acute Problem details: Suspect due to infection, possibly UTI (5) Diabetes mellitus: Status: Acute Problem details: Type 2 diabetes managed well with low carb diet and no medication. (6) Chronic dyspnea: Status: Acute Problem details: Chronic dyspnea with exertion. Combination of deconditioning, heart disease, obesity (7) Dyspepsia: Status: Acute Problem details: Acutely worse but reporting chronic symptoms particularly related to certain foods especially fried foods. Has gallstones but ultrasound shows no cholecystitis. (8) Nausea and vomiting: Status: Acute Problem details: Uncertain cause. Resolved without specific therapy (9) Metabolic acidosis: Status: Acute Problem details: Normal anion gap. Cause of her metabolic acidosis is thought due to her chronic diarrhea. Recommend further evaluation of this if metabolic acidosis persists. Consider GI consult if diarrhea persists. Consider Nephrology consult if no diarrhea but persisting non anion gap acidosis (10) UTI (urinary tract infection): Status: Acute Problem details: Unclear if this is the only cause of her recent illness. Treat with amoxicillin for 5 days DS: Summary Hospital Course Hospital Course: 77-year-old female admitted to the hospital with profound weakness, fever chills, nausea and vomiting. For the 2 days prior to admission patient developed weakness the point where she was unable to stand even with assistance of her family. Cause of her weakness the time of admission was uncertain. There was no focal weakness. She improved relatively quickly over the subsequent 2 days in the hospital. Her nausea and vomiting also resolved and she was able to eat a normal diet. She has chronic diarrhea and did not have significant problems with that in the hospital. She was found to have a metabolic acidosis with a normal anion gap. Cause for this was uncertain, possibly due to her diarrhea and vomiting and poor p.o. intake. This will need outpatient follow-up and if persistent further evaluation. She has some chronic weakness in her legs. She reports difficulties getting out of a chair on a ch ronic basis. I noticed also weakness in her voice. Uncertain of the significance of this. Consider outpatient neurologic evaluation if weakness continues to be a problem after her acute illness has resolved. She had urinary tract infection with Proteus mirabilis. She was not having urinary symptoms but given her acute illness this was treated with amoxicillin. During her hospital stay she was able to eat and drink normally and her strength returned close to baseline. Status at Discharge Overall status at discharge: patient is progressing back to baseline Time Spent with Patient Time attestation: Total time spent providing and/or coordinating discharge services: 35 minutes Exam Narrative: Exam Narrative: She is alert, pleasant and in no distress. Respirations are clear to auscultation. Cardiovascular: S1, S2, regular rhythm. No murmur gallop or rub. No focal weakness in all 4 extremities. Abdomen is soft without tenderness. Const: Documenting provider has reviewed patient's vital signs: yes Discharge Plan Discharge Disposition: Home, Self-Care Date of Admission: 05/07/23 12:58 Attending Provider on Discharge: Daquan Cook Primary Care Provider: Anthony Ortiz Condition: Improved Anticipated Discharge Date/Time: 05/09/23 13:00 Discharge Medications: New amoxicillin 250 mg Capsule 500 mg PO TID Qty: 30 0RF Continued carvedilol 6.25 mg tablet 6.25 mg PO BID allopurinol 100 mg tablet 200 mg PO DAILY omeprazole 40 mg capsule,delayed release(DR/EC) 40 mg PO DAILY isosorbide mononitrate 120 mg tablet extended release 24 hr 120 mg PO DAILY lisinopril 10 mg tablet 10 mg PO BID guanfacine 1 mg tablet 0.5 mg PO HS nitroglycerin 0.4 mg tablet, sublingual 0.4 mg sublingual Q5M PRN oxybutynin chloride 5 mg tablet extended release 24hr 5 mg PO DAILY aspirin [Adult Aspirin Regimen] 81 mg tablet,delayed release (DR/EC) 81 mg PO DAILY Discharge Orders: Discharge Order (Routine); Ordered 05/09/23 Ordered By: Daquan Cook Patient Education: Amoxicillin (By mouth) (Amoxicot, Amoxil, Amoxil Pediatric, Trimox), Acute Diarrhea (GEN), Metabolic Acidosis (GEN) Additional Instructions: There is some uncertainty about the cause of your illness. Fortunately you are feeling much better. It may be worth getting more evaluation of your weakness. I have concerns about weakness in your legs as well as weakness in your voice. If weakness continues to be a problem I recommend you see a neurologist for an evaluation. You also have metabolic acidosis. We discussed how your body has to keep a balanced pH. Yours is a little out of balance. I suspected this was due to your diarrhea. It has improved but is not back to normal. If you continue to have a problem with this you may need to see a specialist for further evaluation. This could be a gastrointestinal specialist if you keep having diarrhea. This could be a kidney specialist if your not having diarrhea but your still having acidosis. Activity Level: Activity as Tolerated Discharge Diet: Regular Follow Up Appointments: Anthony Ortiz MD [Primary Care Provider] - 05/16/23 10:10 am (Obtain a basic metabolic panel in 1 week.) [facility] Instructions
== END 2023-05-09 14:47 | disposition home or self-care (01) ==
LOC: ED 11:51 → MEDSURG 12:58
PROVIDERS: Admitting Provider Family Medicine; Emergency Provider Family Medicine; PCP Family Medicine; Visit Provider Family Medicine
DX: R53.1 Weakness (principal); N39.0 Urinary tract infection, site not specified; E87.21 Acute metabolic acidosis; D72.829 Elevated white blood cell count, unspecified; R10.13 Epigastric pain; I25.10 Atherosclerotic heart disease of native coronary artery without angina pectoris; R19.7 Diarrhea, unspecified; R06.09 Other forms of dyspnea; E11.9 Type 2 diabetes mellitus without complications; K80.20 Calculus of gallbladder without cholecystitis without obstruction; I11.9 Hypertensive heart disease without heart failure; E66.9 Obesity, unspecified; Z68.36 Body mass index [BMI] 36.0-36.9, adult; R11.2 Nausea with vomiting, unspecified; B96.4 Proteus (mirabilis) (morganii) as the cause of diseases classified elsewhere; K21.9 Gastro-esophageal reflux disease without esophagitis; R35.0 Frequency of micturition; Z79.82 Long term (current) use of aspirin; Z11.52 Encounter for screening for COVID-19; Z86.79 Personal history of other diseases of the circulatory system; Z98.890 Other specified postprocedural states; Z95.810 Presence of automatic (implantable) cardiac defibrillator; Z90.710 Acquired absence of both cervix and uterus; Z98.891 History of uterine scar from previous surgery; E89.2 Postprocedural hypoparathyroidism
CPT/HCPCS: 36415; 71275; 74177; 76705; 80048; 80076; 81001; 82550; 83605; 83735; 83880; 84100; 84145; 84443; 84484; 84550; 85025; 85379; 85610; 85651; 85730; 86140; 87040; 87086; 87186; 87631; 93005; 94761; 96361; 96365; 96366; 96375; 97116; 97161; 97165; 97530; 97535; 99285; G0378; A9270; J0696; J2405; J3475; J7030; J7120; Q9967

== ENCOUNTER 2023-09-27 11:43 | Emergency (ER) | payer MEDICARE, BC, OTHER, SELFPAY ==
[2023-09-27] VITALS (10 sets, daily range): BP systolic 179; BP diastolic 77; PULSE 75; RESP 16; O2SAT 93–98; BMI 32.3
--- NOTE | 2023-09-27 12:25 | ED.GENADULT ---
HPI - General Adult General Date Seen: 09/27/23 Chief complaint: Nausea/Vomiting Stated complaint: Nausea, vomiting Time Seen by Provider: 09/27/23 12:23 History of Present Illness HPI narrative: 77-year-old female with a past medical history including diabetes, coronary artery disease, previous MIs, pacemaker, previous UTIs presenting to the ER today by private car from home for evaluation of nausea and vomiting, generalized weakness, confusion.. She normally lives with her daughter in [place]. She has a complex past history. She has been having episodes where she gets very nauseous and vomiting and diarrhea associated with profound weakness and confusion, even a fluctuating level of consciousness according to her daughter. These episodes happen sporadically. Perhaps once every month or 2. There is no clear pattern to them. She recalls that she did have a bad episode like this last May and was seen here in the ER for. She does not remember really remember what was found or what tests were run. She says the doctor ?had some opinions? about what was causing it and recommended that she ?see a specialist?. Does not sound like she has had any specialist follow-up. He her current episode began yesterday ER. She has been healthy and well lately. Her is currently in the hospital at [place] so she ate some dinner at [facility] and [place] last night. She was feeling fine then. She had a protein bowl. Yesterday evening before he began edge she began to feel mildly nauseous. When she got in bed she got much more nauseous. When she was nauseous she was also very weak with generalized, nonfocal weakness and had hard time getting out of bed. She threw up 3 or 4 times overnight. It sounds like it was possibly food contents and yellowish. No bloody or coffee-ground emesis. Around 4:00 a.m. she was strong enough to get to the toilet and started having junky/liquidy diarrhea without blood or mucus. She has had at least 3 or 4 episodes of diarrhea and multiple ongoing episodes of vomiting through the morning. She is feeling weak. She is having trouble thinking and concentrating. Her daughter brought her here to the ER [place] She does have some abdominal discomfort, more in the upper abdomen than lower abdomen. It has been getting ?progressive?. She is not really able to describe it. It is not really clearly related to cramps or diarrhea. There was no abdominal pain yesterday. When asked what her sugars running, she gives a very 10 gentle answer. She says that when she used to be on a keto diet her sugar was pretty well controlled roughly around 180. A couple of weeks ago she was put on a burst of prednisone because of pain in her legs (presumably because of a rib are a flare) but she did not like how the prednisone is making her feel and was driving her sugars up over 400 so she took herself off prednisone. She stopped prednisone perhaps week ago. When asked her what her sugars running since then she initially is unable to tell me. When asked what it was yesterday she says it was probably around 190. She has a pacemaker. She notes that ?recently? her heart rate has been a little bit higher than its baseline of 70. She is not really able to tell me when ?recently? was. It sounds like heart rate is a bit elevated today around 90. She is not having a fever. She says she was seen for this episode of nausea and vomiting and diarrhea last May. In review of her medical record I see she was seen 05/07/[address] Roy. According to that note chief complaint was weakness and chest pain. Records indicate that she had had symptoms for couple of days and had been seen in the ER at [place] the day before her visit in [place]. Workup: WBC 14.7, hemoglobin 10.5, platelet 258 D-dimer 0.76 Troponin less than is a 0.01 BNP 14 70 Sodium 136, potassium 4.7 by, bicarb 18, BUN 30, creatinine 1.6, glucose 152 AST 22, ALT 15, bilirubin 0.6 UA normal COVID, influenza, RSV swab negative RUQ ultrasound IMPESSION: 1. No evidence of cholelithiasis or cholecystitis. 2. Borderline diameter common duct is 7 millimeters. No choledocholithiasis seen although parts of distal duct are obscured by bowel gas. Abdomen pelvis CT IMPRESSION: No acute abnormality identified in the abdomen or pelvis. PE protocol chest CT IMPRESSION: 1. No evidence of pulmonary embolism. 2. Coronary and aortic atherosclerosis. 3. Mild hepatic steatosis. Related Data Home Medications Medication Instructions Recorded Confirmed allopurinol 100 mg tablet 200 mg PO DAILY 05/07/23 05/07/23 aspirin 81 mg tablet,delayed 81 mg PO DAILY 05/07/23 05/07/23 release (Adult Aspirin Regimen) carvedilol 6.25 mg tablet 6.25 mg PO BID 05/07/23 05/07/23 guanfacine 1 mg tablet 0.5 mg PO HS 05/07/23 05/07/23 isosorbide mononitrate 120 mg 120 mg PO DAILY 05/07/23 05/07/23 tablet,extended release 24 hr lisinopril 10 mg tablet 10 mg PO BID 05/07/23 05/07/23 nitroglycerin 0.4 mg sublingual 0.4 mg sublingual Q5M PRN 05/07/23 05/07/23 tablet omeprazole 40 mg capsule,delayed 40 mg PO DAILY 05/07/23 05/07/23 release oxybutynin chloride 5 mg 5 mg PO DAILY 05/07/23 05/07/23 tablet,extended release 24 hr Previous Rx's Medication Instructions Recorded amoxicillin 250 mg capsule 500 mg (2 x 250 mg) PO TID #30 caps 05/09/23 loperamide 2 mg capsule (Imodium 2 mg PO Q4H PRN loose stool #14 09/27/23 A-D) caps ondansetron 4 mg disintegrating 4 mg PO Q8H PRN nausea and 09/27/23 tablet vomiting #10 tabs Allergies Allergy/AdvReac Type Severity Reaction Status Date / Time amlodipine AdvReac Dizziness Verified 09/27/23 11:54 nortriptyline [From Pamelor] AdvReac syncope Verified 09/27/23 11:54 PFSH PFSH Medical History (Updated 09/27/23 @ 17:24 by Jay Renee MD) H/O coronary angiogram ?Z98.890 - Other specified postprocedural states (ICD-10) Hyperparathyroidism ?E21.3 - Hyperparathyroidism, unspecified (ICD-10) Dyspepsia ?R10.13 - Epigastric pain (ICD-10) Depression ?F32.A - Depression, unspecified (ICD-10) Cardiac defibrillator in place ?Z95.810 - Presence of automatic (implantable) cardiac defibrillator (ICD-10) History of pacemaker ?Z95.0 - Presence of cardiac pacemaker (ICD-10) Obesity ?E66.9 - Obesity, unspecified (ICD-10) Chronic dyspnea ?R06.09 - Other forms of dyspnea (ICD-10) Diabetes mellitus ?E11.9 - Type 2 diabetes mellitus without complications (ICD-10) Surgical History (Updated 05/07/23 @ 16:25 by Daquan Cook MD) H/O abdominal hysterectomy ?Z90.710 - Acquired absence of both cervix and uterus (ICD-10) History of esophagogastroduodenoscopy (EGD) ?Z98.890 - Other specified postprocedural states (ICD-10) History of ?Z98.891 - History of uterine scar from previous surgery (ICD-10) H/O parathyroidectomy ?E89.2 - Postprocedural hypoparathyroidism (ICD-10) Family History (Updated 05/07/23 @ 16:26 by Daquan Cook MD) Brother Alcohol dependence Colon cancer Mother Diabetes Heart disease Stroke Daughter Diabetes Father Heart disease Social History (Updated 05/07/23 @ 16:28 by Daquan Cook MD) Narrative: Patient lives with her in [place]. She also has a daughter who lives downstairs in her house. Healthcare power of deputy attorney general is her Wero and daughter Aleshia. Code status is full code for witnessed arrest and DNR for unwitnessed arrest. She does not smoke. She does not drink alcohol. What is your current living situation?: I presently have a place to live Problems where you live: no known problems Problems where you live details: No known problems In the past 12 months, utilities in danger of being shut off: no In past 12 months, lack of transportation kept you from medical appts, meetings, work, or getting things needed for daily living: no In the past 12 mos, have been you worried that your food would run out before you had money to buy more?: never true In the past 12 mos, the food you bought just didn't last and you didn't have money to buy more?: never true Highest level of school completed/degree received: 12th grade, no diploma Smoking Status: Never smoker Do you use any of these nicotine containing products: None How often do you have a drink containing alcohol: never How often do you have six or more drinks on one occasion: Never AUDIT-C Alcohol total score: 0 Non-prescribed substance use: denies use Caffeine: Yes How often does anyone, including family, friends and others, physically hurt you: never How often does anyone, including family, friends and others, insult or talk down to you: never How often does anyone, including family, friends and others, threaten you with harm: never How often does anyone, including family, friends and others, scream or curse at you: never service: No Exam Narrative: Exam Narrative: Constitutional: Appears well-developed and well-nourished. Alert. Conversant and polite but a very confusing historian. When I try to ask her what came out when she vomits, she goes off on a tangent about what she used to eat in her keto diet. Ultimately it turns out that her vomiting has been mostly been stomach mucus and food. When asked her what her blood sugar is she again goes off on a tangent about how her blood sugar used to be pretty well controlled on a keto diet but was thrown off a few weeks ago when she was on prednisone but she is really not able to tell me what her sugars been running today or lately until a ventral a she says that her sugar was probably 190 yesterday. Daughter notes that she tends to get very confused during these bombing episodes and has been like this in the past when she has had episodes.. HENT: Head: Atraumatic. Nose: Nose normal. Mouth/Throat: Oral mucosa is clear but dry. no trismus. Pharynx normal. Tonsils symmetric. No tonsillar enlargement, erythema, or exudate. Eyes: Conjunctivae normal. EOM normal. Pupils equal, round, and reactive to light. No scleral icterus. Neck: Normal range of motion. Neck supple. No tracheal deviation present. Cardiovascular: Normal rate, regular rhythm. No gallop. No friction rub. No murmur heard. Symmetric radial artery pulses Pulmonary/Chest: Effort normal. No stridor. No respiratory distress. No wheezes. No rales. No rhonchi . Abdominal: Soft. Bowel sounds normal. No distension. No mass. Left upper quad> right upper quad tenderness. No Bishop sign. No CVA tenderness No rebound. No guarding. Musculoskeletal: RUE: Normal range of motion. No tenderness. No deformity LUE: Normal range of motion. No tenderness. No deformity RLE: Normal range of motion. No edema. No tenderness. No deformity LLE: Normal range of motion. No edema. No tenderness. No deformity Neurological: Alert and oriented to person, place, and time. Normal strength. CN II-VII intact. No sensory deficit. GCS eye subscore is 4. GCS verbal subscore is 5. GCS motor subscore is 6. Normal coordination Skin: Skin is warm and dry. No rash noted. No pallor. Normal capillary refill. Psychiatric: Normal mood. Normal affect. Const: Vital Signs, click to edit/add: Vital Signs - 24 hr 09/27/23 11:52 09/27/23 13:06 09/27/23 13:10 Pulse Rate [Right Pulse Oximeter] 75 Respiratory Rate 16 Blood Pressure [Ri ght Upper Arm] 179/77 H Pulse Oximetry 98 95 96 Oxygen Delivery Me thod Room Air 09/27/23 14:19 09/27/23 14:20 09/27/23 14:30 Pulse Rate [Right Pulse Oximeter] Respiratory Rate Blood Pressure [Ri ght Upper Arm] Pulse Oximetry 95 96 96 Oxygen Delivery Me thod 09/27/23 14:50 09/27/23 15:06 09/27/23 15:17 Pulse Rate [Right Pulse Oximeter] Respiratory Rate Blood Pressure [Ri ght Upper Arm] Pulse Oximetry 96 96 95 Oxygen Delivery Me thod 09/27/23 15:26 Pulse Rate [Right Pulse Oximeter] Respiratory Rate Blood Pressure [Ri ght Upper Arm] Pulse Oximetry 93 Oxygen Delivery Me thod Course Course ED Course: Recheck-feeling better. Nausea resolved. Requesting some Sprite-provided. Recheck-needs to get up to the bathroom to have more diarrhea. Otherwise feeling better. No further vomiting strength better. Ambulatory in the hallway using a walker, without otherwise assist. Recheck-to the bathroom 1 more time for another episode of diarrhea. Still otherwise feeling well. Recheck-resting in bed. Tolerating oral liquid and some crackers. Vital Signs Vital signs: Initial Vital Signs Pulse Rate 75 09/27/23 11:52 Pulse Rhythm Regular 09/27/23 11:52 Pulse Strength 3+ Normal 09/27/23 11:52 Respiratory Rate 16 09/27/23 11:52 Blood Pressure 179/77 H 09/27/23 11:52 Blood Pressure Mean 111 H 09/27/23 11:52 Blood Pressure Position Supine 09/27/23 11:52 Pulse Oximetry 98 09/27/23 11:52 Oxygen Delivery Method Room Air 09/27/23 11:52 Vital Signs Pulse Rate 75 09/27/23 11:52 Respiratory Rate 16 09/27/23 11:52 Blood Pressure 179/77 H 09/27/23 11:52 Pulse Oximetry 98 09/27/23 11:52 Oxygen Delivery Method Room Air 09/27/23 11:52 Pulse Rate 75 09/27/23 11:52 Respiratory Rate 16 09/27/23 11:52 Blood Pressure 179/77 H 09/27/23 11:52 Pulse Oximetry 93 09/27/23 15:26 Oxygen Delivery Method Room Air 09/27/23 11:52 Medications Administered Medications: Discontinued Medications Generic Name Dose Route Start Last Admin Trade Name Freq PRN Reason Stop Dose Admin Sodium Chloride 1,000 mls @ 1,000 mls/hr 09/27/23 13:00 09/27/23 14:09 0.9 % Sodium Chloride 1000 Ml IV 09/27/23 13:59 Infused .Q1H ALCIDES Infusion Loperamide HCl 4 mg 09/27/23 17:21 09/27/23 17:26 Loperamide Hcl 2 Mg Capsule PO 09/27/23 17:22 4 mg ONCE ONE Administration Ondansetron HCl 4 mg 09/27/23 12:56 09/27/23 13:28 Ondansetron 2 Mg/Ml Inj IVP 09/27/23 12:57 4 mg ONCE ONE Administration Medical Decision Making [facility] Narrative Medical decision making narrative: 77-year-old female with a complex presentation. Initial chief complaint was nausea, vomiting, diarrhea. This is also associated with profound generalized weakness and also associated with some confusion and altered mental status. Current episode began yesterday evening and worsened overnight into this morning. However she and her daughter note that she has had several episodes like this, perhaps every month or 2, for the past several months. She had been seen in the ER for 1 of these episodes last May and had a workup including negative troponin, negative CT PA, negative CT scan abdomen pelvis, negative gallbladder ultrasound, normal LFTs, normal electrolytes, mild renal insufficiency, no UTI. Differential for her symptoms today is broad. With previously negative gallbladder ultrasound, suspect that biliary colic or cholecystitis would be much less likely. LFTs and lipase are normal. Consider possible mesenteric ischemia but lipase is normal. CT scan appears normal. Is given leukocytosis and upper abdominal pain we did do a repeat CT scan today. No evidence for any clear bowel obstruction, inflammatory condition in the bowel such as diverticulitis, appendicitis, colitis. No evidence for any mesenteric ischemia. Consider ball supple UTI as a cause for her nausea and vomiting. No evidence for pyuria or bacteria to suggest infection. She does have scant hematuria. No evidence for any kidney stone on the CT. She does have elevated BUN at 37 but creatinine normal at 1.3 . Creatinine is actually better today than her recent labs. With elevated BUN suspect prerenal. She does have low bicarb which could also be related to GI losses and dehydration. She does have diabetes with recent hyperglycemia associated with prednisone but stopped taking prednisone over a week ago. Blood sugar today is VB does not show any signs of an anion gap metabolic acidosis. No cough or shortness of breath. The no chest pain COVID negative. TSH normal. She does have a pacemaker in notes that her heart rate has been faster than this morning. On my EKG she does have a paced rhythm with a rate of 70. Suspect that her previous elevated heart was probably physiologic related to vomiting, dehydration, and her other symptoms. No signs of any tachyarrhythmia at this point. Lab Data Labs: Lab Results 09/27/23 09/27/23 09/27/23 Range/Units 11:56 13:25 14:19 WBC 12.19 H (4.50-11.00) K/uL RBC 3.76 L (4.00-5.20) m/uL Hgb 12.1 (12.0-16.0) gm/dL Hct 37.7 (33.0-51.0) % MCV 100 (80-100) fL MCH 32 (26-34) pg MCHC 32 (32-36) gm/dL RDW Coeff of Carol 14.4 (11.5-15.5) % Plt Count 295 (140-440) K/uL Neut % (Auto) 89.6 H (42.0-72.0) % Lymph % (Auto) 4.6 L (20-44) % [place] % (Auto) 2.6 (0.0-11.0) % Eos % (Auto) 2.9 (0.0-7.0) % Baso % (Auto) 0.1 (0.0-3.0) % Neut # (Auto) 10.90 H (1.7-7.0) K/uL Lymph # (Auto) 0.60 L (0.90-2.90) K/uL [place] # (Auto) 0.30 (0.00-0.90) K/UL Eos # (Auto) 0.40 (0.00-0.50) K/uL Baso # (Auto) 0.00 (0.00-0.30) K/uL Abs Immat Gran (auto) 0.00 (0.00-0.30) K/uL Imm/Tot Granulo (auto) 0.2 % VBG pH 7.37 (7.32-7.43) VBG pCO2 35 L (40-50) mmHG VBG pO2 36.0 (25-47) mmHG VBG HCO3 20 L (21-28) mmol/L Sodium 138 (135-149) mmol/L Potassium 5.1 (3.6-5.1) mmol/L Chloride 110 (96-114) mmol/L Carbon Dioxide 17 L (20-32) mmol/L Anion Gap 11 (7-15) mEq/L BUN 37 H (7-30) mg/dL Creatinine 1.3 (0.5-1.5) mg/dL Estimated Creat Clear 33.93 Estimated GFR 42 ml/min Glucose 187 H (60-115) mg/dL Lactate 1.2 (0.5-1.9) mmol/L Calcium 10.1 (8.4-10.6) mg/dL Total Bilirubin 0.7 (0.1-1.5) mg/dL AST 22 (12-35) U/L ALT 17 (4-35) U/L Alkaline Phosphatase 103 (40-150) U/L Troponin I 0.02 (0.01-0.04) ng/mL Total Protein 7.5 (6.0-8.3) g/dL Albumin 4.1 (3.3-5.0) g/dL Lipase 132 (23-300) U/L TSH 1.070 (0.270-4.200) uIU/mL Urine Color Yellow (Yellow) Urine Appearance Slightly Cloudy A (Clear) Urine pH 5.5 (5.0-8.5) Ur Specific [place] 1.020 (1.000-1.030) Urine Protein 1+ A (Negative) Urine Glucose (UA) Negative (Negative) Urine Ketones Negative (Negative) Urine Blood Negative (Negative) Urine Nitrite Negative (Negative) Urine Bilirubin Negative (Negative) Urine Urobilinogen 0.2 (0.2-1.0) Ur Leukocyte Esterase Negative (Negative) Urine RBC 2-5 A (0-2) Urine WBC 2-5 (0-5) Ur Squamous Epith Cells Few (None-Few) Urine Bacteria Few A (None) SARS-CoV-2 (PCR) Negative SARS-CoV-2 (Negative) Influenza Type A (PCR) Negative PCR FLU A (Negative) Influenza Type B (PCR) Negative PCR FLU B (Negative) RSV (PCR) Negative PCR RSV (Negative) Imaging Data CT scan - abdomen: Attestation: I have reviewed the pertinent imaging results. Radiologist's impression: Impression: 1. No findings on the CT to account for the patient`s clinical symptomatology. 2. Post hysterectomy and a cystocele. 3. The right sacral stimulator in place. ECG Data Attestation: I personally reviewed and interpreted this ECG as follows: Interpretation: Atrial paced rhythm. Rate 70 MS 182 QRS axis normal axis. No pathologic Q-waves. ST segment/T wave: No ST segment elevation or depression. QTc: 401 Discharge Plan Discharge Clinical Impression: Nausea, vomiting and diarrhea, Weakness, Dehydration Patient Disposition: Home, Self-Care Condition: Stable Instructions: Dehydration (DC), Acute Nausea and Vomiting (DC) Additional Instructions: As we discussed, use Zofran if needed for nausea and Imodium to help slow down diarrhea. Try to drink plenty of fluids and stay hydrated. Eat solid foods when you feel ready. Please follow-up with your regular doctor this week for recheck. You should consider a referral to Gastroenterology to evaluate why you have these recurrent episodes of vomiting and diarrhea and weakness. If you have any worsening symptoms, such as uncontrolled nausea and vomiting, dehydration, or recurrent weakness, please come back to the ER right away to be rechecked. Activity Level: No Restrictions Discharge Diet: Regular Prescriptions: New ondansetron 4 mg tablet,disintegrating 4 mg PO Q8H PRN (Reason: nausea and vomiting) Qty: 10 0RF loperamide [Imodium A-D] 2 mg capsule 2 mg PO Q4H PRN (Reason: loose stool) Qty: 14 0RF Rx Instructions: administer after each loose stool until symptoms controlled; do not exceed 8 mg per 24 hrs No Action carvedilol 6.25 mg tablet 6.25 mg PO BID allopurinol 100 mg tablet 200 mg PO DAILY omeprazole 40 mg capsule,delayed release(DR/EC) 40 mg PO DAILY isosorbide mononitrate 120 mg tablet extended release 24 hr 120 mg PO DAILY lisinopril 10 mg tablet 10 mg PO BID guanfacine 1 mg tablet 0.5 mg PO HS nitroglycerin 0.4 mg tablet, sublingual 0.4 mg sublingual Q5M PRN oxybutynin chloride 5 mg tablet extended release 24hr 5 mg PO DAILY aspirin [Adult Aspirin Regimen] 81 mg tablet,delayed release (DR/EC) 81 mg PO DAILY amoxicillin 250 mg Capsule 500 mg PO TID Qty: 30 0RF Follow Up/Referrals: Anthony Ortiz MD [Primary Care Provider] - Stand Alone Forms: [facility] Info Instructions
[2023-09-27 12:39] LABS: PCR FLU A Negative PCR FLU A (Negative); PCR FLU B Negative PCR FLU B (Negative); PCR RSV Negative PCR RSV (Negative); SARS PCR* Negative SARS-CoV-2 (Negative)
--- NOTE | 2023-09-27 12:56 | CT_ITS ---
Patient: ALBERTO TORRES Facility:?[facility] Patient ID:?[id number] Site Patient ID:?[id number]. Site :?[id number] Study:?CT-Abdomen/Pelvis W/ 98CC [id number]/24/2024 2:46:54 PM Ordering Physician:Ventura Renee Final Report: INDICATION: Abdominal pain predominantly in the right upper quadrant and left upper quadrant; vomiting; diarrhea; weakness. COMPARISON: CT abdomen and pelvis May 07, 2023. TECHNIQUE: CT abdomen and pelvis with intravenous contrast; coronal and sagittal reformats. FINDINGS: Cardiac pacer in place. No abnormal intra pulmonary nodular densities through the lung bases. No evidence of pleural effusion. No focal hepatic or splenic pathology. No pancreatic pathology. Gallbladder is unremarkable. No adrenal pathology. No kidney stones or obstructive uropathy. Extrarenal pelvis on the right without any interval change. No retroperitoneal lymphadenopathy. No evidence of abdominal or pelvic ascites. Status post hysterectomy. Cystocele. Diverticulosis sigmoid colon without any CT evidence of diverticulitis or abscess. No pneumoperitoneum or intestinal obstruction. Impression: 1. No findings on the CT to account for the patient`s clinical symptomatology. 2. Post hysterectomy and a cystocele. 3. The right sacral stimulator in place. Please note that all CT scans at this facility use dose modulation, iterative reconstruction, and/or weight-based dosing when appropriate to reduce radiation dose to as low as reasonably achievable. Dictated by Yonathan Quintana MD @ 09/27/2023 3:01:14 PM Signed by:?Yonathan Quintana MD @09/27/2023 3:01:14 PM (Electronic Signature)
[2023-09-27] MEDS: ONDANSETRON 2 MG/ML inj 4 MG IVP (13:28)
[2023-09-27] MEDS: 0.9 % SODIUM CHLORIDE 1000 ml 1,000 ML IV (13:28)
[2023-09-27 13:31] LABS: Lactate* 1.2 mmol/L (0.5-1.9)
[2023-09-27 13:33] LABS: HCO3 VBG 20 mmol/L (21-28); PCO2 VBG 35 mmHG (40-50); pH VBG 7.37 (7.32-7.43)
[2023-09-27 13:34] LABS: Basophils Percent Auto 0.1 % (0.0-3.0); Eosinophils Percent Auto 2.9 % (0.0-7.0); Hematocrit 37.7 % (33.0-51.0); Hemoglobin* 12.1 gm/dL (12.0-16.0); Immature Granulocytes Pct Auto 0.2 %; Lymphocytes Percent Auto 4.6 % (20-44); Mean Corpuscular HGB Conc 32 gm/dL (32-36); Mean Corpuscular Hemoglobin 32 pg (26-34); Mean Corpuscular Volume 100 fL (80-100); Monocytes Percent Auto 2.6 % (0.0-11.0); Neutrophils Percent Auto 89.6 % (42.0-72.0); Platelet Count* 295 K/uL (140-440); RDW Coefficient of Variation % 14.4 % (11.5-15.5); Red Blood Count 3.76 m/uL (4.00-5.20); White Blood Count* 12.19 K/uL (4.50-11.00)
[2023-09-27 13:42] LABS: Slide Review Reflex No
[2023-09-27 13:55] LABS: Albumin* 4.1 g/dL (3.3-5.0); Chloride* 110 mmol/L (96-114); Potassium* 5.1 mmol/L (3.6-5.1); Sodium* 138 mmol/L (135-149)
[2023-09-27 13:57] LABS: Creatinine* 1.3 mg/dL (0.5-1.5); Est. Creatinine Clearance* 33.93; Estimated Glomerular Filt Rate 42 ml/min
[2023-09-27 13:58] LABS: Alanine Aminotransferase* 17 U/L (4-35); Alkaline Phosphatase* 103 U/L (40-150); Anion Gap 11 mEq/L (7-15); Aspartate Amino Transferase* 22 U/L (12-35); Bilirubin Total* 0.7 mg/dL (0.1-1.5); Blood Urea Nitrogen* 37 mg/dL (7-30); Carbon Dioxide* 17 mmol/L (20-32); Glucose* 187 mg/dL (60-115); Lipase* 132 U/L (23-300); Total Protein* 7.5 g/dL (6.0-8.3)
[2023-09-27 13:59] LABS: Calcium* 10.1 mg/dL (8.4-10.6)
[2023-09-27 14:10] LABS: Troponin I* 0.02 ng/mL (0.01-0.04)
[2023-09-27 14:32] LABS: Appearance Urine Slightly Cloudy (Clear); Bilirubin Urine Negative (Negative); Blood Urine Negative (Negative); Color Urine Yellow (Yellow); Glucose Urine Negative (Negative); Ketones Urine Negative (Negative); Protein Urine 1+ (Negative); Urobilinogen Urine 0.2 (0.2-1.0); pH Urine 5.5 (5.0-8.5)
[2023-09-27 14:33] LABS: Bacteria Urine Few; Leukocyte Esterase Urine Negative (Negative); Nitrite Urine Negative (Negative); Squamous Epithelial Cell Urine Few (None-Few)
[2023-09-27] MEDS: LOPERAMIDE HCL 2 MG CAPSULE 4 MG PO (17:26)
== END 2023-09-27 17:39 | disposition home or self-care (01) ==
PROVIDERS: Emergency Provider Emergency Medicine; PCP Family Medicine
DX: R11.2 Nausea with vomiting, unspecified (principal); R19.7 Diarrhea, unspecified; R53.1 Weakness; E86.0 Dehydration
CPT/HCPCS: 36415; 74177; 80053; 81001; 82803; 83605; 83690; 84443; 84484; 85025; 87086; 87631; 93005; 96374; 99284; 99285; A9270; J2405; J7030; Q9967

== ENCOUNTER 2024-08-21 13:17 | Emergency (ER) | payer MEDICARE, BC, OTHER, SELFPAY ==
[2024-08-21] VITALS (10 sets, daily range): BP systolic 145–178; BP diastolic 71–88; PULSE 69–74; RESP 18; TEMP 36.4; O2SAT 96–98; BMI 35.2
--- NOTE | 2024-08-21 13:31 | ED.GENADULT ---
HPI - General Adult General Time Seen by Provider: 13:31 Date Seen: 08/21/24 Chief complaint: Unspecified Complaint, Adult Stated complaint: concerned having heart attack, nausea, dizzy, neck Time Seen by Provider: 08/21/24 13:22 Source: patient, RN notes reviewed and old records reviewed Mode of arrival: ambulatory Limitations: no limitations History of Present Illness HPI narrative: 78-year-old female who comes in with lightheadedness, nausea, neck pain. Patient has a recent history of shortness of breath was T going on for several weeks, had an echocardiogram which by her report showed ?fluid around the heart? and was started on diuretics this week. Noted 2 days ago she started having diarrhea and some leg cramping. Today had a near-syncopal episode at [facility]. Was standing line, became flushed and lightheaded with nausea. Did not fall. No chest pain with this. As noted little bit of confusion the last week as well. Denies urinary symptoms, abdominal pain. Does note watery diarrhea with episodes every couple hours going on for the last couple days. No cough, runny nose, sore throat, fever or chills. Related Data Home Medications ?Medication ?Instructions ?Recorded ?Confirmed allopurinol 100 mg tablet 200 mg PO DAILY 05/07/23 08/21/24 aspirin 81 mg tablet,delayed 81 mg PO DAILY 05/07/23 08/21/24 release (Adult Aspirin Regimen) carvedilol 6.25 mg tablet 6.25 mg PO BID 05/07/23 08/21/24 guanfacine 1 mg tablet 0.5 mg PO HS 05/07/23 08/21/24 isosorbide mononitrate 120 mg 120 mg PO DAILY 05/07/23 08/21/24 tablet,extended release 24 hr lisinopril 10 mg tablet 10 mg PO BID 05/07/23 08/21/24 nitroglycerin 0.4 mg sublingual 0.4 mg sublingual Q5M PRN 05/07/23 08/21/24 tablet omeprazole 40 mg capsule,delayed 40 mg PO DAILY 05/07/23 08/21/24 release oxybutynin chloride 5 mg 5 mg PO DAILY 05/07/23 08/21/24 tablet,extended release 24 hr carvedilol 12.5 mg tablet 12.5 mg PO BID 08/21/24 08/21/24 furosemide 20 mg tablet 20 mg PO QAM 08/21/24 08/21/24 rosuvastatin 10 mg tablet 10 mg PO QPM 08/21/24 08/21/24 spironolactone 25 mg tablet 25 mg PO DAILY 08/21/24 08/21/24 Previous Rx's ?Medication ?Instructions ?Recorded ondansetron 4 mg disintegrating 4 mg PO Q8H PRN nausea and 09/27/23 tablet vomiting #10 tabs Allergies Allergy/AdvReac Type Severity Reaction Status Date / Time amlodipine AdvReac Dizziness Verified 08/21/24 16:51 nortriptyline (From Pamelor) AdvReac syncope Verified 08/21/24 16:51 PFSH PFS Medical History H/O coronary angiogram ?Z98.890 - Other specified postprocedural states (ICD-10) Hyperparathyroidism ?E21.3 - Hyperparathyroidism, unspecified (ICD-10) Dyspepsia ?R10.13 - Epigastric pain (ICD-10) Depression ?F32.A - Depression, unspecified (ICD-10) Cardiac defibrillator in place ?Z95.810 - Presence of automatic (implantable) cardiac defibrillator (ICD-10) History of pacemaker ?Z95.0 - Presence of cardiac pacemaker (ICD-10) Obesity ?E66.9 - Obesity, unspecified (ICD-10) Chronic dyspnea ?R06.09 - Other forms of dyspnea (ICD-10) Diabetes mellitus ?E11.9 - Type 2 diabetes mellitus without complications (ICD-10) Surgical History H/O abdominal hysterectomy ?Z90.710 - Acquired absence of both cervix and uterus (ICD-10) History of esophagogastroduodenoscopy (EGD) ?Z98.890 - Other specified postprocedural states (ICD-10) History of ?Z98.891 - History of uterine scar from previous surgery (ICD-10) H/O parathyroidectomy ?E89.2 - Postprocedural hypoparathyroidism (ICD-10) Family History (Updated 05/07/23 @ 16:26 by Daquan Cook MD) Brother Alcohol dependence Colon cancer Mother Diabetes Heart disease Stroke Daughter Diabetes Father Heart disease Social History (Updated 05/07/23 @ 16:28 by Daquan Cook MD) Narrative: Patient lives with her in [place]. She also has a daughter who lives downstairs in her house. Healthcare power of attorney at law is her Wero and daughter Aleshia. Code status is full code for witnessed arrest and DNR for unwitnessed arrest. She does not smoke. She does not drink alcohol. What is your current living situation?: I presently have a place to live Problems where you live: no known problems Problems where you live details: No known problems In the past 12 months, utilities in danger of being shut off: no In past 12 months, lack of transportation kept you from medical appts, meetings, work, or getting things needed for daily living: no In the past 12 mos, have been you worried that your food would run out before you had money to buy more?: never true In the past 12 mos, the food you bought just didn't last and you didn't have money to buy more?: never true Highest level of school completed/degree received: 12th grade, no diploma Smoking Status: Never smoker Do you use any of these nicotine containing products: None How often do you have a drink containing alcohol: never How often do you have six or more drinks on one occasion: Never AUDIT-C Alcohol total score: 0 Non-prescribed substance use: denies use Caffeine: Yes How often does anyone, including family, friends and others, physically hurt you: never How often does anyone, including family, friends and others, insult or talk down to you: never How often does anyone, including family, friends and others, threaten you with harm: never How often does anyone, including family, friends and others, scream or curse at you: never service: No Exam Narrative: Exam Narrative: General: Well-developed and well-nourished, no acute distress Head: Atraumatic and normocephalic Eyes: Pupils are equal reactive, extraocular motions intact, conjunctiva clear ENT: External nose and ears are normal, posterior pharynx without erythema or exudate Neck: No midline cervical tenderness, full spontaneous range of motion the neck, trachea midline, no adenopathy Heart: Regular rate and rhythm no murmurs or thrills Lungs: Clear to auscultation bilaterally without wheezes or crackles Abdomen: Soft, nontender, nondistended with active bowel sounds Musculoskeletal: No tenderness, deformity, or edema Neurologic: Awake, alert, and oriented x3, no gross focal neurologic deficits, cranial nerves intact as tested Psych: Mood and affect are appropriate Skin: No rashes Const: Vital Signs, click to edit/add: Vital Signs - 24 hr 08/21/24 13:23 08/21/24 13:33 Temperature 97.6 F Pulse Rate [Left P ulse Oximeter] 70 Respiratory Rate 18 Blood Pressure [Ri ght Upper Arm] 161/80 H 145/71 H Pulse Oximetry 98 Oxygen Delivery Me thod Room Air Course Course ED Course: Reviewed most recent emergency department visit at outside facility from June 2024 which was for nausea vomiting diarrhea, treated symptomatically and discharged. Also reviewed most recent cardiology visit from June 2020 for which was recheck for coronary disease and ICD placement. At that time patient is doing well, noted to have a myocardial perfusion study in December 2022 with a small region of ischemia related to a chronically occluded circumflex, at that time was reporting generalized weakness and shortness of breath that was thought to possibly be related to a rheumatologic disorder. Also reviewed most recent echocardiogram from July 21 which showed no pericardial effusion, ejection fraction 60%, moderate to severe tricuspid regurgitation. Patient with several months of shortness of breath and generalized weakness, increased weakness this week with some diarrhea and now an your syncopal episode today. On exam here, patient is vitally stable, awake alert, no focal neurologic deficits, no crackles on lung exam, no lower extremity edema, no abdominal tenderness. EKG is reassuring. There symptoms today could be related to hypovolemia as patient had was recently started on a diuretic and additional diarrhea, also concern for electrolyte disturbances. Acute coronary syndrome also possible but a little bit less likely. Labs ordered along with chest x-ray. EKG independently interpreted by me performed at 1:23 p.m. demonstrates normal sinus rhythm, rate 87, no acute ST elevations, normal intervals, normal axis, WV 128, QTC 416. Reevaluation(s) Time of Reevaluation #1: 15:11 Reevaluation #1: Labs ordered and independently interpreted by me with leukocytosis, white blood cell count 11.95 and hemoglobin 11.4, this is approximately stable for the patient. Creatinine 1.8 which is elevated from patient's baseline of 1.4, BUN is also elevated suggesting some mild hypovolemia. BNP 424 which is down from prior at outside clinic at 747. Hepatic panel is normal, urinalysis negative, troponin 0.01 which is likely negative but will be rechecked given time of onset of symptoms. Chest x-ray independently interpreted by me with ICD in the left chest, no acute infiltrate, no cardiomegaly, no pulmonary edema. Updated patient and daughter with findings and plan. Time of Reevaluation #2: 16:00 Reevaluation #2: Labs independently interpreted by me with elevated D-dimer. In setting of near syncope, concern for pulmonary embolism but patient has no other risk factors, no chest pain, chronic ongoing shortness of breath. Patient's creatinine is elevated from baseline with acute kidney injury on top of chronic kidney disease. At this point, risk of contrast induced nephropathy is greater than possibility of pulmonary embolism. Will continue to monitor. Time of Reevaluation #3: 17:03 Reevaluation #3: Repeat troponin is negative. Patient is stable for discharge, will have her hold spironolactone for now, should continue Lasix. Vital Signs Vital signs: Initial Vital Signs Temperature 97.6 F 08/21/24 13:23 Temperature Source Oral 08/21/24 13:23 Pulse Rate 70 08/21/24 13:23 Respiratory Rate 18 08/21/24 13:23 Blood Pressure 161/80 H 08/21/24 13:23 Blood Pressure Mean 107 H 08/21/24 13:23 Blood Pressure Position Sitting 08/21/24 13:23 Pulse Oximetry 98 08/21/24 13:23 Oxygen Delivery Method Room Air 08/21/24 13:23 Vital Signs Temperature 97.6 F 08/21/24 13:23 Pulse Rate 70 08/21/24 13:23 Respiratory Rate 18 08/21/24 13:23 Blood Pressure 161/80 H 08/21/24 13:23 Pulse Oximetry 98 08/21/24 13:23 Oxygen Delivery Method Room Air 08/21/24 13:23 Temperature 97.6 F 08/21/24 13:23 Pulse Rate 70 08/21/24 13:23 Respiratory Rate 18 08/21/24 13:23 Blood Pressure 145/71 H 08/21/24 13:33 Pulse Oximetry 98 08/21/24 13:23 Oxygen Delivery Method Room Air 08/21/24 13:23 Medical Decision Making Lab Data Labs: Lab Results 08/21/24 08/21/24 08/21/24 Range/Units 14:29 14:43 16:35 WBC 11.95 H (4.50-11.00) K/uL RBC 3.55 L (4.00-5.20) m/uL Hgb 11.4 L (12.0-16.0) gm/dL Hct 35.7 (33.0-51.0) % MCV 101 H (80-100) fL MCH 32 (26-34) pg MCHC 32 (32-36) gm/dL RDW Coeff of Carol 13.8 (11.5-15.5) % Plt Count 250 (140-440) K/uL Neut % (Auto) 73.4 H (42.0-72.0) % Lymph % (Auto) 19.0 L (20-44) % [place] % (Auto) 4.1 (0.0-11.0) % Eos % (Auto) 3.2 (0.0-7.0) % Baso % (Auto) 0.2 (0.0-3.0) % Neut # (Auto) 8.80 H (1.7-7.0) K/uL Lymph # (Auto) 2.30 (0.90-2.90) K/uL [place] # (Auto) 0.50 (0.00-0.90) K/UL Eos # (Auto) 0.40 (0.00-0.50) K/uL Baso # (Auto) 0.00 (0.00-0.30) K/uL Abs Immat Gran (auto) 0.00 (0.00-0.30) K/uL Imm/Tot Granulo (auto) 0.1 % D-Dimer Quant (PE/DVT) 1.20 H (0.00-0.50) ug/ml Sodium 135 (135-149) mmol/L Potassium 4.3 (3.6-5.1) mmol/L Chloride 106 (96-114) mmol/L Carbon Dioxide 18 L (20-32) mmol/L Anion Gap 11 (7-15) mEq/L BUN 66 H (7-30) mg/dL Creatinine 1.8 H (0.5-1.5) mg/dL Estimated Creat Clear 24.11 Estimated GFR 28 ml/min Glucose 265 H (60-115) mg/dL Calcium 10.0 (8.4-10.6) mg/dL Magnesium 1.5 (1.5-2.6) mg/dL Total Bilirubin 0.8 (0.1-1.5) mg/dL Direct Bilirubin 0.3 (0.0-0.5) mg/dL AST 18 (12-35) U/L ALT 15 (4-35) U/L Alkaline Phosphatase 130 (40-150) U/L NT-Pro-B Natriuret Pep 424 pg/mL Total Protein 7.4 (6.0-8.3) g/dL Albumin 4.4 (3.3-5.0) g/dL Urine Color Yellow (Yellow) Urine Appearance Clear (Clear) Urine pH 6.0 (5.0-8.5) Ur Specific [place] 1.010 (1.000-1.030) Urine Protein Negative (Negative) Urine Glucose (UA) Negative (Negative) Urine Ketones Negative (Negative) Urine Blood Negative (Negative) Urine Nitrite Negative (Negative) Urine Bilirubin Negative (Negative) Urine Urobilinogen 0.2 (0.2-1.0) Ur Leukocyte Esterase Negative (Negative) Urine RBC 0-2 (0-2) Urine WBC 0-2 (0-5) Ur Squamous Epith Cells Few (None-Few) Urine Bacteria None (None) SARS-CoV-2 (PCR) Negative SARS-CoV-2 (Negative) Influenza Type A (PCR) Negative PCR FLU A (Negative) Influenza Type B (PCR) Negative PCR FLU B (Negative) RSV (PCR) Negative PCR RSV (Negative) POC Troponin I 0.01 0.00 L (0.01-0.04) ng/ml Discharge Plan Discharge Clinical Impression: Acute kidney injury superimposed on chronic kidney disease, Arteriosclerotic heart disease (ASHD), (HFpEF) heart failure with preserved ejection fraction, Benign essential HTN Patient Disposition: Home, Self-Care Condition: Stable Instructions: Acute Kidney Injury (DC) Additional Instructions: Stop taking spironolactone for now, continue Lasix Call your hydroelectric machinery mechanic in the morning to discuss further treatment Prescriptions: No Action carvedilol 12.5 mg tablet 12.5 mg PO BID spironolactone 25 mg tablet 25 mg PO DAILY furosemide 20 mg tablet 20 mg PO QAM rosuvastatin 10 mg tablet 10 mg PO QPM carvedilol 6.25 mg tablet 6.25 mg PO BID allopurinol 100 mg tablet 200 mg PO DAILY omeprazole 40 mg capsule,delayed release(DR/EC) 40 mg PO DAILY isosorbide mononitrate 120 mg tablet extended release 24 hr 120 mg PO DAILY lisinopril 10 mg tablet 10 mg PO BID guanfacine 1 mg tablet 0.5 mg PO HS nitroglycerin 0.4 mg tablet, sublingual 0.4 mg sublingual Q5M PRN oxybutynin chloride 5 mg tablet extended release 24hr 5 mg PO DAILY aspirin [Adult Aspirin Regimen] 81 mg tablet,delayed release (DR/EC) 81 mg PO DAILY ondansetron 4 mg tablet,disintegrating 4 mg PO Q8H PRN (Reason: nausea and vomiting) Qty: 10 0RF Follow Up/Referrals: Anthony Ortiz MD [Primary Care Provider] - Stand Alone Forms: [facility] Info Instructions
--- NOTE | 2024-08-21 14:05 | CRLHL7_ITS ---
For Patients: As a result of the Cures Act, medical imaging exams and procedure reports are released immediately into your electronic medical record. You may view this report before your referring provider. If you have questions, please contact your health care provider. INDICATION: Near-syncope, nausea. TECHNIQUE: Chest 2 views. COMPARISON: None. FINDINGS: Cardiovascular and mediastinum: Heart size is normal. Unremarkable mediastinum. ICD is present. Lungs and pleural spaces: Lungs and pleural spaces are clear except for calcified granuloma in the right mid lung zone. No pneumothorax. Bones and soft tissues: No significant findings. IMPRESSION: Negative chest. Dictated by Js Koenig MD @ 08/21/2024 3:43:47 PM (Electronically Signed)
--- OUTSIDE RECORDS SUMMARY | 2024-08-21 14:06 | XMS_ITS | Continuity of Care Document ---
Author Organization [facility] Address [address] [place] [address] Phone Care Team Providers Care Guardian Family Member Name Role Phone RN, RN Unavailable Unavailable Advance Directives Directive Yes / No Effective Date File Name Other Directive No N/A N/A WARNING:The information contained in this section is historical and is provided for information only and does not constitute a legal document or any assurance that the information is still accurate. Please verify the information with the noble of the legal document before using it for clinical purposes. Encounters Encounter Description Practice Location Reason(s) For Visit Diagnoses Date Provider Providers Copied on Encounter [facility], [address], [place], [place], [id number], [place] tel:[phone] [facility] No Information RN RN. [address], [address], [place], [place], [id number], [place]. tel:[phone] Family History Family Member Type Diagnosis Age At Onset No Information Payers Payer name Insurance type Covered alliance party ID Authoriza tion(s) No Information Social History Type Description Quantity Date Captured Comments Alcohol Use Details Unknown Caffeine Use Details Unknown Tobacco Use Status No Information Smoking Status No Information Sex Female Chief Complaint And Reason For Visit No Information Reason For Referral Reason For Referral No Information History Of Present Illness Encounter Date Complaint History Of Prese nt Illness No Information Functional Status Date Functional Assessmen t No Information Instructions Date Instruction Additional Infor mation No Information Assessments Type Assessment Date No Information Patient Care Teams Name Effective Dates (start - stop) Status Members No Information
--- OUTSIDE RECORDS SUMMARY | 2024-08-21 14:06 | XMS_ITS | Data Portability ---
Author Organization [place] - [facility], [employer] Address [address] [place] [address] Assessment Encounter Date Assessment Date Assessment LastModified by Organization Details LastModified Time 01/06/2024 01/06/2024 We did discussed findings with the patient as detailed down below. I did debrided nails today as previously documented. Did talked about changing lacing pattern to vary tightness of the shoes. Patient was informed that she would benefit from Subiomed devices and was trialed for the devices. Patient has noticed improvement in balance and stability, relates that she is more upright with the use of the devices. We did dispensed a trial pair of Subiomed devices size medium, shoes size 9 and a ped pillow with a first ray cut out which the patient will utilize for a week and will be seen back to know if she wanted to pursue the devices moving forward. Not available 01/07/2024 13:37:01 01/13/2024 01/13/2024 We did discussed findings with the patient as detailed down below. We did took back the pair that we got the last visit. Advised the patient for options of referring her to [facility] or to Rheumatology for further management. We also discussed possibility of following up on history of arthritis and possible rheumatological evaluation vs further neurological evaluation for the patient because she has failed conservative cares which traditionally improved these conditions. Patient will be seen back in a PRN basis moving forward. Not available 02/16/2024 04:33:50 Plan of Treatment Reminders Order Date Submit Date Provider Last Modified By Organization Details Last Modified Time Details Appointments None record ed. Lab None record ed. Referral None record ed. Procedures None record ed. Surgeries None record ed. Imaging None record ed. Medication Orders None record ed. Patient TargetsNo targets recorded. Patient InstructionsNo instructions recorded. Reason for Referral None Reported. Problems Name Problem SNOMED Code Status Onset Date Resolution Date Notes Provider Name and Address Organization Details Recorded Time Diabetic care Active [address] Ortiz 12/25 CHARITY [place] - [facility] 4 15:41:33 Degenerat nancy joint disease of ankle AND/OR foot 12316395 Active 2013 Degenerati ve Arthritis of Foot; Original Code: 715.97 [place] [employer] : ICD-9-CM C lassificat ion: Medical Co nfirmation Status: Confirmed Not Available [facility] 3 09:01:57 Type 2 diabetes mellitus without complicat ion 030348856 Active 2013 Diabetes Mellitus Type 2 in Obese; Original Code: 250.00 [place] [employer] : ICD-9-CM C lassificat ion: Medical Co nfirmation Status: Confirmed Not Available [facility] 3 09:01:58 Onychomyc osis due to dermatoph yte 256857176 Active 2013 Onychomyco sis of toenail; Original Code: 110.1 [place] Codesystem : ICD-9-CM C lassificat ion: Medical Co nfirmation Status: Confirmed Not Available [facility] 3 09:01:58 Acquired equinus deformity of foot 99265391 Active 2010 _Equinus Deformity of Foot, Acquired_; Original Code: 736.72 [place] [employer] : ICD-9-CM C lassificat ion: Medical Co nfirmation Status: Confirmed Not Available [facility] 3 09:01:58 Problem Notes None recorded. Procedures Surgical History Date Name Laterality Status Provider Name and Address Organization Details Recorded Time [address] Ambrosio [facility] - [facility] 01/07/2024 13:28:24 Imaging Results None recorded. Procedure Notes None recorded. Medical Equipment None Reported. Allergies No known drug allergies Medications Name Sig Start Date Stop Date Status Note LastModified by Organization Details LastModified Time amoxicillin 500 mg capsule TAKE ONE CAPSULE BY MOUTH THREE TIMES A DAY active Not Available Not Available Not Available carvedilol 6.25 mg tablet TAKE ONE TABLET BY MOUTH TWICE A DAY WITH MEALS active Not Available Not Available No t Available prednisone 10 mg tablet TAKE ONE TABLET BY MOUTH EVERY DAY AFTER A MEAL active Not Available Not Available No t Available carvedilol 12.5 mg tablet TAKE ONE TABLET BY MOUTH TWICE A DAY WITH MEALS active Not Available Not Available No t Available loperamide 2 mg capsule TAKE ONE CAPSULE BY MOUTH EVERY 4 HOURS NEEDED FOR LOOSE STOOL. ADMINISTER AFTER EACH LOOSE STOOL UNTIL SYMPTOMS CONTROLLED. DO NOT EXCEE active Not Available Not Available No t Available azithromycin 250 mg tablet TAKE TWO TABLETS BY MOUTH ONE DOSE ON THE FIRST DAY, THEN TAKE ONE DAILY THEREAFTER. active Not Available Not Available Not Available allopurinol 100 mg tablet TAKE TWO TABLETS BY MOUTH EVERY DAY active Not Available Not Available No t Available omeprazole 40 mg capsule,chema yed release TAKE ONE CAPSULE BY MOUTH ONCE DAILY BEFORE A MEAL active Not Available Not Available No t Available isosorbide mononitrate ER 120 mg tablet,exten ded release 24 hr TAKE ONE TABLET BY MOUTH EVERY DAY BEFORE A MEAL active Not Available Not Available No t Available lisinopril 10 mg tablet TAKE ONE TABLET BY MOUTH TWICE A DAY active Not Available Not Available No t Available nitroglyceri n 0.[address] 1 TABLET UNDER THE TONGUE AT THE 1ST SIGN OF ATTACK. IF PAIN IS UNRELIEVED OR WORSENED 5 MINS AFTER 1ST DOSE, PROMPT MEDICAL ASSISTANC active Not Available Not Available No t Available ondansetron 4 mg disintegrati ng tablet DISSOLVE ONE TABLET BY MOUTH EVERY 8 HOURS NEEDED FOR NAUSEA AND VOMITING active Not Available Not Available No t Available Contour Next Test Strips TEST TWO TIMES A DAY active Not Available Not Available Not Available Vitals Date Recorded Body height Body mass index (BMI) Body weight Provider Name and Address Organization Details Last Updated DateTime 01/06/2024 167.64 cm 33.1 kg/m2 46501.44 g Priyanka Kimbrough [place] - [facility] 01/06/2024 15:33:45 Social History None recorded. Functional Status None recorded. Mental Status None recorded. Family History Nothing Reported. Medical History No medical history recorded. Gynecological HistoryNo gynecological history recorded. 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 8535181528 929409 M20.5X2 Acquired h allux limitus of right great toe 1337161376 610147 M20.5X1 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 0253575325 773503 M20.42 Acquired h ammer toe of right foot 1373698038 496073 M20.41 [id number] Joe Sosa [place] [facility] [address] [place] [id number] 01/13/2024 15:42:45 01/15/2024 11:09:51 Peripheral neuropathy due to type 2 diabetes mellitus 5209521353 107 E11.42 Onychomycosis 424950235 B35.1 Foot callus 183015775 L8 4 Gouty arth ritis of the ankle and/or foot 997168673 M10.079 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 8067200455 492980 M20.5X2 Acquired h allux limitus of right great toe 1862319371 265830 M20.5X1 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 2430738192 639763 M20.42 Acquired h ammer toe of right foot 1453924576 891121 M20.41 dn Health Concerns Section Related Observation LastModified by Organization Detai ls LastModified Time None Recorded Concern Status LastModified by Organization Details LastModified Time None Recorded Advance Directives Directive None Recorded Payers Encounter Date Sequence Insurance Name Policy Number Policy Woods Covered Member ID Woods Member ID Guarantor Name 01/06/2024 1 [place] COST [id number] Sarahy Leigh [id number] Sarahy Randle Reese 01/06/2024 2 [place] [employer] Sarahy Leigh [id number] Sarahy Randle Reese 01/13/2024 1 [place] [id number] Sarahy Leigh [id number] Sarahy Leigh 01/13/2024 2 [place] [employer] [facility] Sarahy Leigh [id number] Sarahy Leigh Notes Date Note Type Note Provider Name and Address Organization Details Recorded Time 01/06/2024 text/html Patient 78 y/o female new patient is here for evaluation of pain on bilateral ankles and dorsum of the foot. Patient has history of neuroma and has received a corticosteroid injections from us on her last visit which has done well for her. She was having gout attacks and had difficulty with ambulation over the past weeks, taking Allopurinol for oral medication. She also has concerns about her balance and stability and has had 3 incidents of fall last year. Presents today for definitive management and diabetic foot care. Darek Fernandez DPM [address] [place], [address], [facility] - [facility] 01/07/2024 14:43:51 01/13/2024 text/html Patient 78 y/o female patient is here for follow up evaluation of pain on bilateral ankles and dorsum of the foot. Patient has history of neuroma and has received a corticosteroid injections from on her last visit which has done well for her. She was having gout attacks and had difficulty with ambulation over the past weeks, taking Allopurinol for oral medication. She also has concerns about her balance and stability and has had 3 incidents of fall last year. Presents today after 1 week trial of Subiomed devices. Patient has mentioned that the devices are very uncomfortable for her and has stopped using them due to discomfort. CHARITY [place] - [facility] 02/16/2024 04:33:53 OBGyn Episode No OBEpisode recorded.
[2024-08-21 14:38] LABS: Basophils Percent Auto 0.2 % (0.0-3.0); Eosinophils Percent Auto 3.2 % (0.0-7.0); Hematocrit 35.7 % (33.0-51.0); Hemoglobin* 11.4 gm/dL (12.0-16.0); Immature Granulocytes Pct Auto 0.1 %; Mean Corpuscular HGB Conc 32 gm/dL (32-36); Mean Corpuscular Hemoglobin 32 pg (26-34); Mean Corpuscular Volume 101 fL (80-100); Monocytes Percent Auto 4.1 % (0.0-11.0); Neutrophils Percent Auto 73.4 % (42.0-72.0); Platelet Count* 250 K/uL (140-440); RDW Coefficient of Variation % 13.8 % (11.5-15.5); Red Blood Count 3.55 m/uL (4.00-5.20); White Blood Count* 11.95 K/uL (4.50-11.00)
[2024-08-21 14:44] LABS: Troponin, Point-of-Care* 0.01 ng/ml (0.01-0.04)
[2024-08-21 14:50] LABS: Albumin* 4.4 g/dL (3.3-5.0); Chloride* 106 mmol/L (96-114)
[2024-08-21 14:51] LABS: Potassium* 4.3 mmol/L (3.6-5.1); Sodium* 135 mmol/L (135-149)
[2024-08-21 14:53] LABS: Anion Gap 11 mEq/L (7-15); Carbon Dioxide* 18 mmol/L (20-32); Creatinine* 1.8 mg/dL (0.5-1.5); Est. Creatinine Clearance* 24.11; Estimated Glomerular Filt Rate 28 ml/min
[2024-08-21 14:53] LABS: Appearance Urine Clear (Clear); Bilirubin Urine Negative (Negative); Blood Urine Negative (Negative); Color Urine Yellow (Yellow); Glucose Urine Negative (Negative); Ketones Urine Negative (Negative); Leukocyte Esterase Urine Negative (Negative); Nitrite Urine Negative (Negative); Protein Urine Negative (Negative); Urobilinogen Urine 0.2 (0.2-1.0)
[2024-08-21 14:54] LABS: Alanine Aminotransferase* 15 U/L (4-35); Alkaline Phosphatase* 130 U/L (40-150); Aspartate Amino Transferase* 18 U/L (12-35); Bilirubin Direct* 0.3 mg/dL (0.0-0.5); Bilirubin Total* 0.8 mg/dL (0.1-1.5); Blood Urea Nitrogen* 66 mg/dL (7-30); Glucose* 265 mg/dL (60-115); Magnesium* 1.5 mg/dL (1.5-2.6); Total Protein* 7.4 g/dL (6.0-8.3)
[2024-08-21 15:04] LABS: NT Pro B Type NatriureticPept* 424 pg/mL; Slide Review Reflex No
[2024-08-21 15:14] LABS: RBC Urine 0-2 (0-2); Squamous Epithelial Cell Urine Few (None-Few); WBC Urine 0-2 (0-5)
[2024-08-21 15:37] LABS: PCR FLU A Negative PCR FLU A (Negative); PCR FLU B Negative PCR FLU B (Negative); PCR RSV Negative PCR RSV (Negative); SARS PCR* Negative SARS-CoV-2 (Negative)
[2024-08-21] MEDS: 0.9 % SODIUM CHLORIDE 500 ML 500 ML IV (17:13)
== END 2024-08-21 17:58 | disposition home or self-care (01) ==
PROVIDERS: Emergency Provider Family Medicine; PCP Family Medicine
DX: N17.8 Other acute kidney failure (principal); N18.9 Chronic kidney disease, unspecified; I25.10 Atherosclerotic heart disease of native coronary artery without angina pectoris; I50.30 Unspecified diastolic (congestive) heart failure; I10 Essential (primary) hypertension
CPT/HCPCS: 36415; 71046; 80048; 80076; 81001; 83735; 83880; 84484; 85025; 85379; 87631; 93005; 99284; 99285; J7030

== ENCOUNTER 2025-08-02 18:57 | Emergency (ER) | payer MEDICARE, BC, OTHER, SELFPAY ==
--- OUTSIDE RECORDS SUMMARY | 2025-04-11 13:00 | XMS_ITS | Encounter Summary ---
Author Organization [facility] Address [address] [place] [address] Care Team Providers Care Wood Grinder Name Role Phone Jo Bolaños P.A.-C. Primary Care Pro vider Reason for Referral * Outpatient (Routine) - ClosedSpecialtyDiagnoses / ProceduresReferred By ContactReferred To Contact Diagnoses Imbalance Non Orthopedic Dizziness Procedures Audio-Vestibular Balance evaluation Christy Luque P.A.-C. [address] [place] [address] Phone: tel: fax: [facility] Referral IDStatusReasonStjuana DateExpiration DateVisits RequestedVisits [id number]/8/202512/ Reason for Visit * Outpatient (Routine) - ClosedSpecialtyDiagnoses / ProceduresReferred By ContactReferred To ContactOtorhinolaryngology Diagnoses Cholesteatoma Left Jo Bolaños MPAS, P.A.-C. [address] [place] [address] Phone: tel: fax: [facility] Referral IDStatusReasonStjuana DateExpiration DateVisits RequestedVisits [id number] [facility] Required 8/22/00241/ Encounter Details DateTypeDepartmentCare Team (Latest Contact Info)Siqewqjwuft68/08/2025 2:00 PM CDTComprehensive Visit Department of Otorhinolaryngology in [place], [place] [address] [place] [phone] Christy Luque P.A.-C. [address] [place] [address] Imbalance Non Orthopedic (Primary Dx); Dizziness; Ear Examination Abnormal Social History Tobacco UseTypesPacks/DayYears UsedDateSmoking Tobacco: NeverSmokeless Tobacco: NeverAlcohol UseStandard Drinks/WeekCommentsNot Currently0 (1 standard drink = 0.6 oz pure alcohol)when i was in my 20,s for a couple yrs drinks with ice cream [facility] UtilitiesAnswerDate RecordedIn the past 12 months has the [employer], gas, oil, or water [place] threatened to shut off services in your home?No12/20/2024 Hunger Vital SignAnswerDate RecordedWithin the past 12 months, you worried that your food would run out before you got the money to buymore.Never true12/20/2024 Within the past 12 months, the food you bought just didn't last and you didn't have money to get more.Never true12/20/2024PRAPARE - TransportationAnswerDate RecordedIn the past 12 months, has lack of transportation kept you from medical appointments or from getting medications?No12/20/2024In the past 12 months, has lack of transportation kept you from meetings, work, or from getting things needed for daily living?No12/20/2024Housing StabilityAnswerDate RecordedWhat is your living situation today?I have a steady place to live12/20/2024 CommentsNoSex and Gender InformationValueDate RecordedSex Assigned at Woovzf6612/20/2024 6:27 PM CDTLegal ZlbRovjho07/02/2017 4:56 AM CSTGender Identity Shpbwh5712/20/2024 6:27 PM CDTSexual WzprledxqrkKcmhdojv98/19/2025 6:27 PM CDT documented as of this encounter Consult Notes * Christy Luque P.A.-C. - 04/11/2025 2:00 PM CDT SUBJECTIVE CHIEF COMPLAINT/REASON FOR VISIT Abnormal left ear exam, imbalance and dizziness REFERRING PROVIDER Jo Bolaños MPAS, Sherif HISTORY OF PRESENT ILLNESS Sarahy Leigh is seen today in consultation for evaluation of her left ear. Patient is status post left mastoidectomy for what sounds like cholesteatoma approximately 40+ years ago. She does not struggle with tinnitus, bothersome hearing loss, or otorrhea. Occasionally she will get some ear aches. She has not followed with ENT regularly for mastoid cleaning or intervention. For 3-5 years patient has had what she calls spells. She will randomly begin to have significant imbalance, this actually caused her to fall forward on her chest approximately 3 months ago. She describes this as feeling very off balance or slightly lightheaded or dizzy, not presyncopal and not a room spinning vertigo. This is not associated with fluctuations in hearing or tinnitus. She follows with cardiology who has determined that they do not think this is from cardiac etiology. She has diabetes mellitus and has checked her blood sugars when symptomatic and that does not seem to be related.Over the last few years the frequency of these dizziness episodes have increased, it used to be once every couple of months but now over the last few months she has been getting this almost weekly. Sometimes she will have it a couple days in a row. The dizziness sometimes lasts minutes, occasionally it has lasted 5-6 hours in duration. She has been brought to [place] emergency department via ambulance multiple times during these episodes and has had significant workup including CT angiogram of head and neck, CT head,. And significant lab work. She has seen Neurology for autonomic testing which was not compelling for evidence of autonomic failure. 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 Patient notes a few weeks ago she had what they are calling in his ischemic TIA, she had an episode of memory loss. She also recalls being told in the past she had Meniere's disease. The following portions of the patient's history were reviewed: allergies, current medications, problem list, family history, medical history, social history and surgical history OBJECTIVE PHYSICAL EXAMINATION GENERAL: Patient is alert, oriented, and in no acute distress. Respirations are quiet and unlabored. Vocal quality is normal. She walks carefully and with a cane. HEAD: Normocephalic and atraumatic. Skin on head and neck normal. NEURO: Cranial nerves 2-12 are grossly intact. EARS: External ears normal bilaterally. External ear canals normal bilaterally. Partially occludingcerumen is removed with instrumentation under otomicroscopic exam. She does have evidence of left middle ear surgery, mastoid cavity is clean and dry, canal wall up. Tympanic membrane itself is thickened with postoperative changes, also with a pinpoint area of increased vascularity posteriorly and s uperiorly. I do not appreciate any soft tissue or fluid in middle ear. NOSE: External nasal exam normal. Intranasal exam reveals near midline septum. No turbinate hypertrophy, polyps, or drainage. ORAL: Oral cavity, including tongue and floor of mouth, is without lesions. NECK: Palpation of neck reveals no masses, adenopathy, or asymmetry. No thyromegaly. ASSESSMENT / PLAN #1 Imbalance Non Orthopedic #2 Dizziness #3 Ear Examination Abnormal We discussed involved anatomy and findings. I am not worried about left ear findings today and do not think this is contributing to her imbalance and dizziness episodes. She has not formerly had vestibular balance evaluation and is interested in proceeding in this manner. I have placed order for this, she is aware that this will require a trip to [place] and that there maybe quite a wait time before she can be seen. I did see notes back from June 2008 where she was diagnosed with an asymmetrical sensorineural hearing loss at outside ENT, MRI/MRA of the brain was, per that note, unremarkable, and she was referred to [facility] for evaluation of Meniere's disease. I am not ableto visualize any of the notes from [facility]. Christy Luque P.A.-C. FINISHER documented in this encounter Plan of Treatment DateTypeDepartmentCare Team (Latest Contact Info)Sujjkvbpils07/05/2026 9:30 AM CSTDiagnostic Department of Otorhinolaryngology in [place], [place] [address] [place] [address] Christy Luque P.A.-C. [address] [place] [address] Addy Burgos Au.D. [address] [place] [phone] 09/07/2025 9:50 AM CSTAppointment Department of Laboratory Medicine in [place], [place] [address] [place] [address] Jo Bolaños MPAS, P.A.-CMiquel [address] [place] [phone] 09/09/2025 3:30 PM CSTOffice Visit Department of Community Internal Medicine in [place], [place] [address] [place] [address] Jo Bolaños MPAS, P.A.-CMiquel [address] [place] [phone] documented as of this encounter Results * Audio-Vestibular Balance evaluation (07/22/2025 12:00 AM SASH FINISHER)Specimen (Source) Anatomical Location / LateralityCollection Method / VolumeCollection Time Received Time07/22/2025 Narrative Authorizing ProviderResult TypeResult StatusSara Maynor Luque P.A.-C.ENT ORDERABLES Final Result documented in this encounter Visit Diagnoses Diagnosis Imbalance Non Orthopedic- Primary Dizziness Ear Examination Abnormal documented in this encounter Care Teams Team MemberRelationshipSpecialtyStart DateEnd Date Jo Bolaños MPAS, P.A.-C. [address] [place], [place] [address]dede BETTENCOURTCHARITY [phone] PCP - GeneralInternal Bmclzqhm68/10/25documented as of this encounter
--- OUTSIDE RECORDS SUMMARY | 2025-06-21 11:00 | XMS_ITS | Encounter Summary ---
Author Organization [facility] Address [address] [place] [address] Care Team Providers Care Account Representative Name Role Phone Jo Bolaños PMiquelAMiquel-CMiquel Primary Care Pro vider Reason for Visit * ReasonCommentsBack PainAching back and lower right side pain x5 days * Appointment Request (Routine) - ClosedSpecialtyDiagnoses / ProceduresReferred By ContactReferred To ContactCommunity Internal Medicine Referral IDStatusReasonStart DateExpiration DateVisits RequestedVisits [id number]/17/20252/ Encounter Details DateTypeDepartmentCare Team (Latest Contact Info)Cnyuooihymn21/18/2025 11:00 AM CSTOffice Visit Department of Community Internal Medicine in [place], [place] [address] [place] [phone] Jo Bloaños MPAS PMiquelAMiquel-CMiquel [address] [place] [phone] Dysuria (Primary Dx); Pain Right Lower Quadrant Social History Tobacco UseTypesPacks/DayYears UsedDateSmoking Tobacco: NeverPassive Smoke Exposure: YesSmokeless Tobacco: NeverAlcohol UseStandard Drinks/WeekCommentsNot Currently0 (1 standard drink = 0.6 oz pure alcohol)when i was in my 20,s for a couple yrs drinks with ice creamAHC UtilitiesAnswerDate RecordedIn the past 12 months has the electric, gas, oil, or water [employer] threatened to shut off services in your home?No12/20/2024Hunger Vital SignAnswerDate RecordedWithin the past 12 months, you worried that your food would run out before you got the money to buymore.Never true12/20/2024Within the past 12 months, the food you bought just didn't last and you didn't have money to get more.Never true 12/20/2024PRAPARE - TransportationAnswerDate RecordedIn the past 12 months, has lack of transportation kept you from medical appointments or from getting medications?No12/20/2024In the past 12 months, has lack of transportation kept you from meetings, work, or from getting things needed for daily living?No 12/20/2024Housing StabilityAnswerDate RecordedWhat is your living situation today?I have a steady place to live12/20/2024CommentsNoSex and Gender InformationValueDate RecordedSex Assigned at CwqyeXsgdki01/19/2025 6:27 PM CDT Legal OmbEirqvh14/02/2017 4:56 AM CSTGender RzvuasudQipmgh47/19/2025 6:27 PM CDT Sexual AxwqfyqkenuCoyngcjx85/19/2025 6:27 PM CDTdocumented as of this encounter Last Filed Vital Signs Vital SignReadingTime TakenCommentsBlood Ovzyhtks405/8106/21/2025 11:05 AM CSTBP othityqFccfg5218/18/2025 11:05 AM GBYFdtfdyxntgz78.1 ??C (97 ??F)06/21/2025 10:59 AM CSTRespiratory Itmj746508/21/2024 10:59 AM CSTOxygen Saturation--Inhaled Oxygen Concentration--Wcxmfb43.3 kg (208 lb)06/21/2025 10:59 AM CSThome scale this morningHeight--Body Mass Index35.9506/10/2025 1:22 PM CSTdocumented in this encounter Progress Notes * Jo Bolaños P.A.-C. - 06/21/2025 11:00 AM CST SUBJECTIVE CHIEF COMPLAINT/REASON FOR VISIT Chief Complaint Patient presents with Back Pain Aching back and lower right side pain x5 days HISTORY OF PRESENT ILLNESS Sarahy Leigh is a pleasant 79 y.o. female who presents to the clinic today for concern of UTI. She was prescribed nitrofurantoin by Dr. Kathleen about 3 weeks ago for treatment of urinary tract infection. Urine culture result showed resistance to nitrofurantoin so she was transitioned to Keflex for 5 days. She felt dramatically improved after completing this antibiotic. She started to not feel well about 5 days ago and thinks she may have a return of UTI. Symptoms include uncomfortable urination described as a pressure right lower abdomen, which is the same symptom she experienced with previous UTI. She rates abdominal pain as a 3-4/10 in severity. She shares that she believes furosemide is contributing to right lower abdominal pain so has transitioned this medication to every other daywhich has led to some improvement in her symptoms (follows with Cardiology in [place] through [facility]). She has urinary urge at baseline with incontinence. She denies nausea, vomiting, or fever, flank pain. She has a history of a total hysterectomy, she is not sure if she has ovaries or fallopian tubes. She denies any pain in vaginal area. She had an episode of diarrhea yesterday and the day prior. No diarrhea today. The following portions of the patient's history were reviewed and updated as appropriate: current medications and problem list. Problem List[1] ALLERGIES/CONTRAINDICATIONS Allergies[2] CURRENT MEDICATIONS Current Medications[3] OBJECTIVE VITAL SIGNS Vitals: 06/21/25 1105 BP: 137/81 Pulse: 76 Resp: Temp: PHYSICAL EXAMINATION General: Well-nourished, well-developed 79 y.o. in no apparent distress. Awake, alert, age appropriate. Cardiovascular: Regular rate and rhythm without murmurs. Lungs: Clear to auscultation bilaterally with no adventitious sounds Abdomen: Very mild tenderness to palpation RLQ. No guarding or rigidity. Three GLP-[address] on abdomen. ASSESSMENT / PLAN IMPRESSION/REPORT/PLAN: #1 Dysuria #2 Pain Right Lower Quadrant Patient presents today with the same symptoms she experienced with recent urinary tract infection approx 3 weeks prior (see clinic visit with Dr. Kathleen 06/02/2025). We will obtain UA/UC today for initial evaluation. If urinalysis is suggestive of infection, we will treat appropriately. I agree that right lower quadrant abdominal pain would be an atypical symptom of urinary tract infection. If UA is not suggestive of infection, we will need to further evaluate. We will be in touch with the patient once urine results are available. - Urinalysis, with Microscopic: Urine, Midstream; Future; Expected date: 06/21/2025 - Bacterial Culture, Aerobic + Susceptibility, Urine; Future; Expected date: 06/21/2025 If symptoms worsen or do not improve, patient is instructed to seek further medical attention. All questions have been answered. Patient demonstrated understanding and verbalized agreement with the plan. Total time spent: 20 minutes Jo Bolaños P.A.-C. 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) Fatty Liver Reflux Esophageal Hypertensive Heart And Chronic Kidney Disease With Heart Failure And Stage 1 To 4 Chronic Kidney Disease Or Unspecified Chronic Kidney Disease (HCC) Incontinence Urinary [2] Allergies Allergen Reactions Amlodipine Other (see comments) Dizziness Nortriptyline Other (see comments) Syncope [3] Current Outpatient Medications: acetaminophen (TylenoL 8 Hr) 650 mg ER tablet, Take 1,300 mg by mouth daily., Disp: , Rfl: allopurinoL (Zyloprim) 100 mg tablet, TAKE TWO TABLETS BY MOUTH EVERY DAY., Disp: 180 tablet, Rfl: [address] tablet, Take by mouth., Disp: , Rfl: blood sugar diagnostic strips (Contour Next Test Strips), Dispense meter, test strips, lancets covered by pt ins. E11.9 IDDM type II - Test 2 times/day., Disp: , Rfl: carvediloL (Coreg) 12.5 mg tablet, Take 12.5 mg by mouth daily., Disp: , Rfl: diphenhydrAMINE-acetaminophen (TylenoL PM) 25-500 mg per tablet, Take 2 tablets by mouth at bedtime., Disp: , Rfl: furosemide (Lasix) 20 mg tablet, 1 tablet (20 mg total) every other day., Disp: , Rfl: glipiZIDE (GlucotroL) 5 mg tablet, Take 1 tablet (5 mg total) by mouth daily before morning meal., Disp: 90 tablet, Rfl: 3 isosorbide mononitrate (IMDUR) 120 mg 24 hr tablet, Take 120 mg by mouth., Disp: , Rfl: lisinopriL 20 mg tablet, Take 1 tablet (20 mg total) by mouth daily., Disp: 30 tablet, Rfl: 0 Microlet Lancet, use to test two times a day, Disp: , Rfl: nitroglycerin (NITROSTAT) 0.4 mg SL tablet, Place 0.4 mg under the tongue every 2 (two) hours as needed., Disp: , Rfl: nitroglycerin (Nitrostat) 0.4 mg SL tablet, Place 1 tablet (0.4 mg total) under the tongue every 5 (five) minutes as needed for chest pain., Disp: 100 tablet, Rfl: 11 omeprazole (PriLOSEC) [address] capsule, take one capsule by mouth once daily before a meal, Disp: ,Rfl: pantoprazole (Protonix) 40 mg EC tablet, Take 1 tablet (40 mg total) by mouth daily before morning meal., Disp: 90 tablet, Rfl: 1 rosuvastatin (Crestor) 10 mg tablet, Take 10 mg by mouth at bedtime., Disp: , Rfl: STICAL ENGINEER documented in this encounter Plan of Treatment DateTypeDepartmentCare Team (Latest Contact Info)Bgseqdwpyup04/05/2026 9:30 AM CSTDiagnostic Department of Otorhinolaryngology in [place], [place] [address] [place] [address] Christy Luque P.A.-C. [address] [place] [phone] Addy Burgos Au.D. [address] [place] [address] 09/07/2025 9:50 AM CSTAppointment Department of Laboratory Medicine in [place], [place] [address] [place] [address] Jo Bolaños MPAS, P.A.-CMiquel [address] [address] 09/09/2025 3:30 PM CSTOffice Visit Department of Community Internal Medicine in [place], [place] [address] [facility] [place] [address] Jo Bolaños MPAS, P.A.-C. [address] [address] documented as of this encounter Results * (ABNORMAL) Bacterial Culture, Aerobic + Susceptibility, Urine (06/21/2025 11:45 AM ACOUSTICAL ENGINEER)ComponentValueRef RangeTest MethodAnalysis TimePerformed At Pathologist SignatureUrine CulturePROTEUS MIRABILIS >100,000 cfu/mL (A)06/23/2025 7:04 AM CSTMKTOSpecimen (Source)Anatomical Location / Laterality Collection Method / VolumeCollection TimeReceived TimeUrine (Urine, Midstream) 06/21/2025 11:45 AM CST06/21/2025 6:39 PM CSTComment:Specimen Source Site: Urine Narrative OrganismAntibioticMethodSusceptibilityProteus mirabilisAmpicillinSUSCEPTIBILITY, MARANDA (MCG/ML) <=2 mcg/mL: Susceptible Proteus mirabilisAmpicillin + SulbactamSUSCEPTIBILITY, MARANDA (MCG/ML) <=2 mcg/mL: Susceptible Proteus mirabilisPiperacillin + TazobactamSUSCEPTIBILITY, MARANDA (MCG/ML) <=4 mcg/mL: Susceptible Proteus mirabilisCefazolinSUSCEPTIBILITY, MARANDA (MCG/ML) <=4 mcg/mL: Susceptible Comment: The interpretation applies to uncomplicated urinary tract infections only. It also applies to these oral cephalosporins: cefuroxime, cephalexin, and cefprozil. Proteus mirabilisCeftazidimeSUSCEPTIBILITY, MARANDA (MCG/ML) <=1 mcg/mL: Susceptible Proteus mirabilisCeftriaxoneSUSCEPTIBILITY, MARANDA (MCG/ML) <=1 mcg/mL: Susceptible Proteus mirabilisCefepimeSUSCEPTIBILITY, MARANDA (MCG/ML) <=1 mcg/mL: Susceptible Proteus mirabilisAztreonamSUSCEPTIBILITY, MARANDA (MCG/ML) <=1 mcg/mL: Susceptible Proteus mirabilisErtapenemSUSCEPTIBILITY, MARANDA (MCG/ML) <=0.5 mcg/mL: Susceptible Proteus mirabilisMeropenemSUSCEPTIBILITY, MARANDA (MCG/ML) <=0.25 mcg/mL: Susceptible Proteus mirabilisGentamicinSUSCEPTIBILITY, MARANDA (MCG/ML) <=1 mcg/mL: Susceptible Proteus mirabilisTobramycinSUSCEPTIBILITY, MARANDA (MCG/ML) <=1 mcg/mL: Susceptible Proteus mirabilisLevofloxacinSUSCEPTIBILITY, MARANDA (MCG/ML) <=0.12 mcg/mL: Susceptible Proteus mirabilisNitrofurantoinSUSCEPTIBILITY, MARANDA (MCG/ML) 128 mcg/mL: Resistant Proteus mirabilisTrimethoprim + SulfamethoxazoleSUSCEPTIBILITY, MARANDA (MCG/ML) <=20 mcg/mL: Susceptible Authorizing ProviderResult TypeResult StatusDesiree Mami ANGEL P.A.-C.LAB MICROBIOLOGY - GENERAL ORDERABLESFinal ResultPerforming OrganizationAddress City/State/ZIP CodePhone Number [facility] [address] [place] [address], [facility] [place] [address] * (ABNORMAL) Urinalysis, with Microscopic: Urine, Midstream (06/21/2025 11:45 AM ACOUSTICAL ENGINEER)ComponentValueRef RangeTest MethodAnalysis TimePerformed AtPathologist SignatureSourceUrine, Urine, Lwksblavo00/18/2025 1:49 PM CSTOWATClarityCloudy (A)Clear06/21/2025 2:01 PM IYAIPMVAgwgwPdnefq43/18/2025 2:01 PM CSTOWAT Comment: ----REFERENCE VALUE---- Colorless Yellow Maren NxnkuSplafzybLgclaauv92/18/2025 2:01 PM CSTOWATNitrite, UNegativeNegative 06/21/2025 2:01 PM CSTOWATLeukocyte EsteraseLarge(A)Npybhazv98/18/2025 2:01 PM CSTOWATProtein, UTracemg/dL06/21/2025 2:01 PM CSTOWATComment: ----REFERENCE VALUE---- Negative Trace Reidgkd834(A)Negative mg/dL06/21/2025 2:01 PM CSTOWATKetoneNegativeNegative mg/dL06/21/2025 2:01 PM MPVMKBXVuiasdimsTfnrrakkYmrgmttr96/18/2025 2:01 PM ACOUSTICAL ENGINEER OWATpH6.55.0 - 8.011 2:01 PM CSTOWATSpecific Gravity1.0171.001 - 1.035 06/21/2025 2:01 PM CSTOWATUrobilinogen0.20.2 - 1.0 mg/dL06/21/2025 2:01 PM ACOUSTICAL ENGINEER OWATWhite Blood Cells>100(A)/hpf06/21/2025 2:01 PM CSTOWATComment: ----REFERENCE VALUE---- Males: 0-3 Females: 0-10 Unknown: 0-10 Red Blood Cells3-10(A)0 - 2 /hpf06/21/2025 2:01 PM CSTOWATDysmorphic Red Blood Cells<=25<=25 %06/21/2025 2:01 PM CSTOWATSquamous Ipjxs08-27/hpf06/21/2025 2:01 PM CSTOWATSpecimen (Source)Anatomical Location / LateralityCollection Method / VolumeCollection TimeReceived TimeUrine (Urine, Midstream)06/21/2025 11:45 AM CST06/21/2025 1:33 PM ACOUSTICAL ENGINEER Narrative Authorizing ProviderResult TypeResult StatusDesiree Mami ANGEL, P.A.-C.LAB URINE ORDERABLESFinal ResultPerforming OrganizationAddressCity/State/ZIP Code Phone Number [facility] [address] [place] [address], [facility] OWAT [facility] [place] [address] [address] documented in this encounter Visit Diagnoses Diagnosis Dysuria- Primary Pain Right Lower Quadrant documented in this encounter Care Teams Team MemberRelationshipSpecialtyStart DateEnd Date Jo Bolaños MPAS, P.A.-C. [address] [place] [address] [place] [phone] PCP - GeneralInternal Lmcexmtz57/10/25documented as of this encounter
--- OUTSIDE RECORDS SUMMARY | 2025-06-21 11:41 | XMS_ITS | Encounter Summary ---
Author Organization [facility] Address [address] [place] [address] Care Team Providers Care Golf Ball Trimmer Name Role Phone Jo Bolaños, P.A.-C. Primary Care Pro vider Encounter Details DateTypeDepartmentCare Team (Latest Contact Info)Xsoyifbfuby40/18/2025 11:41 AM SEALER SANDER - 06/21/2025 11:59 PM CSTHospital Encounter Department of Laboratory Medicine in [place], [place] [address] [place] [address] Jo Bolaños MPAS, P.A.-C. [address] [place] [address] Dysuria Discharge Disposition: Home or Self Care Social History Tobacco UseTypesPacks/DayYears UsedDateSmoking Tobacco: NeverPassive Smoke Exposure: YesSmokeless Tobacco: NeverAlcohol UseStandard Drinks/WeekCommentsNot Currently0 (1 standard drink = 0.6 oz pure alcohol)when i was in my 20,s for a couple yrs drinks with ice creamAHC UtilitiesAnswerDate RecordedIn the past 12 months has the electric, gas, oil, or water [employer] threatened to shut off services in your [...] live12/20/2024CommentsNoSex and Gender InformationValueDate RecordedSex Assigned at FxkhjEpsijg84/19/2025 6:27 PM CDT Legal GqoSezhuy53/02/2017 4:56 AM CSTGender EttlmwjpTjejdb31/19/2025 6:27 PM CDT Sexual BkaxihyjwooDewllehn85/19/2025 6:27 PM CDTdocumented as of this encounter Medications at Time of Discharge MedicationSigDispense QuantityRefillsLast FilledStart DateEnd Date acetaminophen (TylenoL 8 Hr) 650 mg ER tablet Take 1,300 mg by mouth daily. allopurinoL (Zyloprim) 100 mg tablet TAKE TWO TABLETS BY MOUTH EVERY DAY. [address] tablet Take by mouth.06/11/2007 blood sugar diagnostic strips (Contour Next Test Strips) Dispense meter, test strips, lancets covered by pt ins. E11.9 IDDM type II - Test 2 times/day.07/03/2022 carvediloL (Coreg) 12.5 mg tablet Take 12.5 mg by mouth daily.12/06/2022 diphenhydrAMINE-acetaminophen (TylenoL PM) 25-500 mg per tablet Take 2 tablets by mouth at bedtime. furosemide (Lasix) 20 mg tablet 1 tablet (20 mg total) every other day.03/09/2025 lisinopriL 20 mg tablet Take 1 tablet (20 mg total) by mouth daily. 90 tablet 07/04/2025 Microlet Lancet use to test two times a day09/14/2024 nitroglycerin (NITROSTAT) 0.[address] 0.4 mg under the tongue every 2 (two) hours as needed.12/06/2022 nitroglycerin (Nitrostat) 0.[address] 1 tablet (0.4 mg total) under the tongue every 5 (five) minutes as needed for chest pain. 100 tablet omeprazole (PriLOSEC) [address] capsule take one capsule by mouth once daily before a meal03/20/2025 pantoprazole (Protonix) 40 mg EC tablet Take 1 tablet (40 mg total) by mouth daily before morning meal. 90 tablet rosuvastatin (Crestor) 10 mg tablet Take 10 mg by mouth at bedtime.09/27/2024 cefdinir (Omnicef) 300 mg capsule Indications:Cystitis AcuteTake 1 capsule (300 mg total) by mouth 2 (two) times a day before morning and evening meals for 5 days. 10 capsule glipiZIDE (GlucotroL) 5 mg tablet Take 1 tablet (5 mg total) by mouth daily before morning meal. 90 tablet isosorbide mononitrate (IMDUR) 120 mg 24 hr tablet Take 120 mg by mouth. lisinopriL 20 mg tablet Take 1 tablet (20 mg total) by mouth daily. 30 tablet documented as of this encounter Plan of Treatment DateTypeDepartmentCare Team (Latest Contact Info)Gsuromqvaei75/05/2026 9:30 AM CSTDiagnostic Department of Otorhinolaryngology in [place], [place] [address] [place] [address] Christy Luque P.A.-C. [address] [place] [address] Addy Burgos Au.D. [address] [place] [address] 09/07/2025 9:50 AM CSTAppointment Department of Laboratory Medicine in [address] [place] [address] Jo Bolaños MPAS P.A.-CMiquel [address] [address] 09/09/2025 3:30 PM CSTOffice Visit Department of Community Internal Medicine in [place], [place] [address] [place] [address] Jo Bolaños MPAS, P.A.-C. [address] [address] documented as of this encounter Procedures Procedure NamePriorityDate/TimeAssociated DiagnosisCommentsBACTERIAL CULTURE, AEROBIC + SUSC, IOEYYHynagcq01/18/2025 11:45 AM SEALER SANDER Dysuria URINALYSIS WITH DEQFKYJXGYCXcodyux14/18/2025 11:45 AM SEALER SANDER Dysuria documented in this encounter Results * (ABNORMAL) Bacterial Culture, Aerobic + Susceptibility, Urine (06/21/2025 11:45 AM SEALER SANDER)ComponentValueRef RangeTest MethodAnalysis TimePerformed At Pathologist SignatureUrine CulturePROTEUS [...] <=20 mcg/mL: Susceptible Authorizing ProviderResult TypeResult StatusDesiree Deanovcora MPAS, P.A.-C.LAB MICROBIOLOGY - GENERAL ORDERABLESFinal ResultPerforming OrganizationAddress City/State/ZIP CodePhone Number [facility] [address] [place] [address], [place] [employer] [facility] in [place] [address] [place] [address] * (ABNORMAL) Urinalysis, with Microscopic: Urine, Midstream (06/21/2025 11:45 AM SEALER SANDER)ComponentValueRef RangeTest MethodAnalysis TimePerformed AtPathologist SignatureSourceUrine, Urine, Amwxykgib45/18/2025 1:49 PM CSTOWATClarityCloudy (A)Clear06/21/2025 2:01 PM ESXLYERJcspqVyhodo84/18/2025 2:01 PM CSTOWAT Comment: ----REFERENCE VALUE---- Colorless Yellow Maren HnwecGmrqiytyCwwetmig39/18/2025 2:01 PM CSTOWATNitrite, UNegativeNegative 06/21/2025 2:01 PM CSTOWATLeukocyte EsteraseLarge(A)Nrzpefcw33/18/2025 2:01 PM CSTOWATProtein, UTracemg/dL06/21/2025 2:01 PM CSTOWATComment: ----REFERENCE VALUE---- Negative Trace Ckdfpia799(A)Negative mg/dL06/21/2025 2:01 PM CSTOWATKetoneNegativeNegative mg/dL06/21/2025 2:01 PM GFXGAAMIecaquphkNzlwkdyvLmwnqqmg82/18/2025 2:01 PM SEALER SANDER OWATpH6.55.0 - 8. 2:01 PM CSTOWATSpecific Gravity1.0171.001 - 1.035 06/21/2025 2:01 PM CSTOWATUrobilinogen0.20.2 - 1.0 mg/dL06/21/2025 2:01 PM SEALER SANDER OWATWhite Blood Cells>100(A)/hpf06/21/2025 2:01 PM CSTOWATComment: ----REFERENCE VALUE---- Males: 0-3 Females: 0-10 Unknown: 0-10 Red Blood Cells3-10(A)0 - 2 /hpf06/21/2025 2:01 PM CSTOWATDysmorphic Red Blood Cells<=25<=25 %06/21/2025 2:01 PM CSTOWATSquamous Hyrva13-93/hpf06/21/2025 2:01 PM CSTOWATSpecimen (Source)Anatomical Location / LateralityCollection Method / VolumeCollection TimeReceived TimeUrine (Urine, Midstream)06/21/2025 11:45 AM CST06/21/2025 1:33 PM SEALER SANDER Narrative Authorizing ProviderResult TypeResult StatusDesiree Mami ANGEL P.A.-C.LAB URINE ORDERABLESFinal ResultPerforming OrganizationAddressCity/State/ZIP Code Phone Number [facility] [address] [place] [address], [place] [facility] in [place] [address] [place] [address] documented in this encounter Visit Diagnoses Diagnosis Dysuria documented in this encounter Care Teams Team MemberRelationshipSpecialtyStart DateEnd Date Jo Bolaños MPAS, P.ACole. [address] [place] [phone] PCP - GeneralInternal Lokdyoyc21/10/25documented as of this encounter
--- OUTSIDE RECORDS SUMMARY | 2025-07-01 09:50 | XMS_ITS | Encounter Summary ---
Author Organization [facility] Address [address] [place] [address] Care Team Providers Care Freelance Court Reporter Name Role Phone Jo Bolaños, P.A.-C. Primary Care Pro vider Encounter Details DateTypeDepartmentCare Team (Latest Contact Info)Jkvchtmaroz16/28/2025 9:50 AM RIVET STICKER - 07/01/2025 11:59 PM CSTHospital Encounter Department of Laboratory Medicine in [place], [place] [address] [place] [address] Jo Bolaños MPAS, P.A.-C. [address] [place] [address] Chronic Kidney Disease (CKD), Stage 3b Glomerular Filtration Rate (GFR) 30 To 44 (HCC) Discharge Disposition: Home or Self Care Social History Tobacco UseTypesPacks/DayYears UsedDateSmoking Tobacco: NeverPassive Smoke Exposure: YesSmokeless Tobacco: NeverAlcohol UseStandard Drinks/WeekCommentsNot Currently0 (1 standard drink = 0.6 oz pure alcohol)when i was in my 20,s for a couple yrs drinks with ice creamAHC UtilitiesAnswerDate RecordedIn the past 12 months has the [employer], gas, oil, or water [employer] threatened to shut off services in your [...] live12/20/2024CommentsNoSex and Gender InformationValueDate RecordedSex Assigned at PtynwDpfmcb77/19/2025 6:27 PM CDT Legal AekDfzmiv82/02/2017 4:56 AM CSTGender YvwnzznlCksuwu87/19/2025 6:27 PM CDT Sexual CmwsmihknuvZnvazcmc11/19/2025 6:27 PM CDTdocumented as of this encounter [...] Take 10 mg by mouth at bedtime.09/27/2024 glipiZIDE (GlucotroL) 5 mg tablet Take 1 tablet (5 mg total) by mouth daily before morning meal. 90 tablet isosorbide mononitrate (IMDUR) 120 mg 24 hr tablet Take 120 mg by mouth. lisinopriL 20 mg tablet Take 1 tablet (20 mg total) by mouth daily. 30 tablet documented as of this encounter Plan of Treatment DateTypeDepartmentCare Team (Latest Contact Info)Mruqoyspfcr20/05/2026 9:30 AM CSTDiagnostic Department of Otorhinolaryngology in [place], [place] [address] [place] [address] Christy Luque P.A.-CMiquel [address] [place] [address] Addy Burgos Au.D. [address] [place] [address] 09/07/2025 9:50 AM CSTAppointment Department of Laboratory Medicine in [place], [place] [address] [place] [address] Jo Bolaños MPAS, P.A.-C. [address] [phone] 09/09/2025 3:30 PM CSTOffice Visit Department of Community Internal Medicine in [place], [place] [address] [phone] Jo Bolaños MPAS, P.A.-C. 300 [facility] [place] [phone] documented as of this encounter Procedures Procedure NamePriorityDate/TimeAssociated DiagnosisCommentsBASIC METABOLIC PANEL, S/XLdvmtmb77/28/2025 10:02 AM RIVET STICKER Chronic Kidney Disease (CKD), Stage 3b Glomerular Filtration Rate (GFR) 30 To 44 (HCC) documented in this encounter Results * (ABNORMAL) Basic Metabolic Panel (07/01/2025 10:02 AM RIVET STICKER)ComponentValueRef RangeTest MethodAnalysis TimePerformed AtPathologist SignaturePotassium, P4.6 3.6 - 5.2 mmol/L108/31/2024 1:24 PM CSTOWATSodium, K700359 - 145 mmol/L 07/01/2025 1:24 PM CSTOWATChloride, G64651 - 107 mmol/L108/31/2024 1:24 PM RIVET STICKER OWATBicarbonate, P2422 - 29 mmol/L108/31/2024 1:24 PM CSTOWATAnion Gap, P107 - 15108/31/2024 1:24 PM CSTOWATBUN (Blood Urea Nitrogen), P27(H)6 - 21 mg/dL 07/01/2025 1:24 PM CSTOWATCreatinine1.54(H)0.59 - 1.04 mg/dL07/01/2025 1:24 PM CSTOWATEstimated GFR (eGFR)34(L)>=60 mL/min/BSA07/01/2025 1:24 PM CSTOWAT Comment: Estimated GFR calculated using the 2020 CKD_EPI creatinine equation. Calcium, Total, P9.98.8 - 10.2 mg/dL07/01/2025 1:24 PM CSTOWATGlucose, P184(H)70 - 140 mg/dL07/01/2025 1:24 PM CSTOWATSpecimen (Source)Anatomical Location / LateralityCollection Method / VolumeCollection TimeReceived TimeBlood (Blood, Venous)07/01/2025 10:02 AM CST07/01/2025 12:55 PM RIVET STICKER Narrative Authorizing ProviderResult TypeResult StatusDesiree Stephen GonzalezC.LAB BLOOD ADD-ONFinal ResultPerforming OrganizationAddressCity/State/ZIP CodePhone Number [facility] [address] [place] [address], [facility] in [place] [address] [place] [address] documented in this encounter Visit Diagnoses Diagnosis Chronic Kidney Disease (CKD), Stage 3b Glomerular Filtration Rate (GFR) 30 To 44 (HCC) documented in this encounter Care Teams Team MemberRelationshipSpecialtyStart DateEnd Date Jo Bolaños MPAS, P.A.-C. [address] [place] [address] [place] [address] PCP - GeneralInternal Qjaphsoz90/10/25documented as of this encounter
--- OUTSIDE RECORDS SUMMARY | 2025-07-01 10:15 | XMS_ITS | Encounter Summary ---
Author Organization [facility] Address [address] [place] [address] Care Team Providers Care Building Inspection Engineer Name Role Phone Jo Bolaños P.A.-C. Primary Care Pro vider Reason for Visit * ReasonCommentsNurse VisitBP check * Outpatient (Routine) - AuthorizedSpecialtyDiagnoses / ProceduresReferred By ContactReferred To Contact Jo Bolaños MPAS, P.A.-C. [address] [place] [address] Phone: tel: fax: [facility] Region Referral IDStatusReasonOakdale DateExpiration DateVisits RequestedVisits [id number]/7/20255/ Encounter Details DateTypeDepartmentCare Team (Latest Contact Info)Vklnfyizsrj10/28/2025 10:15 AM CSTNurse Only Department of Family Medicine, [facility], in [place], [place] [address] [place] [address] Jo Bolaños MPAS, P.A.-C. [address] [place] [address] Sarah Montano L.P.NMiquel Nurse Visit (BP check ) Social History Tobacco UseTypesPacks/DayYears UsedDateSmoking Tobacco: NeverPassive Smoke Exposure: YesSmokeless Tobacco: NeverAlcohol UseStandard Drinks/WeekCommentsNot Currently0 (1 standard drink = 0.6 oz pure alcohol)when i was in my 20,s for a couple yrs drinks with ice creamAHC UtilitiesAnswerDate RecordedIn the past 12 months has the electric, gas, oil, or water company threatened to shut off services in your [...] live12/20/2024CommentsNoSex and Gender InformationValueDate RecordedSex Assigned at YduanGevenf04/19/2025 6:27 PM CDT Legal IsgAltmiw30/02/2017 4:56 AM CSTGender DglxwkklDwriod78/19/2025 6:27 PM CDT Sexual MnreflsoikqTfvuwxfp01/19/2025 6:27 PM CDTdocumented as of this encounter Last Filed Vital Signs Vital SignReadingTime TakenCommentsBlood Tzaffemr931/7911 10:10 AM PRICING LEAD Average of 9Huhnj7668/28/2025 10:10 AM CSTTemperature--Respiratory Rate--Oxygen Saturation--Inhaled Oxygen Concentration--Weight--Height--Body Mass Index-- documented in this encounter Progress Notes * Sarah Montano, L.P.N. - 07/01/2025 10:15 AM CST REASON FOR VISIT Nurse Blood Pressure Check Known history of Hypertension Today's visit is facilitated in clinic. SUBJECTIVE/EVALUATION Sarahy Randle presents today for a blood pressure check, per follow-up recommendations from STANLEY Love, P.A.-C. at last visit on 06/21/25. At that time, the blood pressure management plan of care included: Nurse Visit for follow-up BP check only Blood Pressure symptoms: HTN Symptoms: The patient reports no acute symptoms of hypertension SOCIAL HISTORY AND SELF-CARE Medication Compliance: has been taking medications as prescribed Healthy Diet Practices: Exercise: Tobacco Use History[1] reports that she does not currently use alcohol. Current Stressors: The patient denies recent stress or lifestyle changes contributing to worsening of symptoms. Self-care goal(s): Not addressed at this visit Home Blood Pressure Monitor Allergies[2] Current Medications[3] VITAL SIGNS are measured by automated device, average of 3 readings at today's visit Vitals: 07/01/25 1010 BP: 135/79 BP Location: Right arm Patient Position: Sitting Cuff Size: Large Pulse: 75 RECENT LAB RESULTS No results found for this or any previous visit (from the past 24 hours). PLAN OF CARE Education Provided Today? No. Additional nurse notes: Consulting STANLEY Love, P.A.-C. to advise on future plan of care. Portal message preferred. and Okay to leave detailed message at the following number(s): [phone] Patient's preferred pharmacy verified as [facility] [address] [facility] [address] [facility] [address] Thank you, Sarah Montano, Maynor.P.N. [1] Social History Tobacco Use Smoking Status Never Passive exposure: Yes Smokeless Tobacco Never [2] Allergies Allergen Reactions Amlodipine Other (see comments) Dizziness Nortriptyline Other (see comments) Syncope [3] Current Outpatient Medications Medication Sig Dispense Refill acetaminophen (TylenoL 8 Hr) 650 mg ER tablet Take 1,300 mg by mouth daily. allopurinoL (Zyloprim) 100 mg tablet TAKE TWO TABLETS BY MOUTH EVERY DAY. 180 tablet [address] tablet Take by mouth. blood sugar diagnostic strips (Contour Next Test Strips) Dispense meter, test strips, lancets covered by pt ins. E11.9 IDDM type II - Test 2 times/day. carvediloL (Coreg) 12.5 mg tablet Take 12.5 mg by mouth daily. diphenhydrAMINE-acetaminophen (TylenoL PM) 25-500 mg per tablet Take 2 tablets by mouth at bedtime. furosemide (Lasix) 20 mg tablet 1 tablet (20 mg total) every other day. glipiZIDE (GlucotroL) 5 mg tablet Take 1 tablet (5 mg total) by mouth daily before morning meal. 90tablet 3 isosorbide mononitrate (IMDUR) 120 mg 24 hr tablet Take 120 mg by mouth. lisinopriL 20 mg tablet Take 1 tablet (20 mg total) by mouth daily. 30 tablet 0 Microlet Lancet use to test two times a day nitroglycerin (NITROSTAT) 0.[address] 0.4 mg under the tongue every 2 (two) hours as needed. nitroglycerin (Nitrostat) 0.[address] 1 tablet (0.4 mg total) under the tongue every 5 (five) minutes as needed for chest pain. 100 tablet 11 omeprazole (PriLOSEC) [address] capsule take one capsule by mouth once daily before a meal pantoprazole (Protonix) 40 mg EC tablet Take 1 tablet (40 mg total) by mouth daily before morning meal. 90 tablet 1 rosuvastatin (Crestor) 10 mg tablet Take 10 mg by mouth at bedtime. No current facility-administered medications for this visit. ING LEAD documented in this encounter Plan of Treatment DateTypeDepartmentCare Team (Latest Contact Info)Pjdlntswtzt27/05/2026 9:30 AM CSTDiagnostic Department of Otorhinolaryngology in [place], [place] [address] [place] [phone] Christy Luque P.A.-C. [address] [place] [address] Addy Burgos Au.D. 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 [facility] [place] [phone] PCP - GeneralInternal Vlnvqcwp10/10/25documented as of this encounter
--- OUTSIDE RECORDS SUMMARY | 2025-07-15 14:13 | XMS_ITS | Encounter Summary ---
Author Organization [facility] Address [address] [place] [address] Care Team Providers Care Destaticizer Feeder Name Role Phone Jo Bolaños, P.A.-C. Primary Care Pro vider Encounter Details DateTypeDepartmentCare Team (Latest Contact Info)Rkfgksmhbak39/12/2025 2:13 PM ORDER ENTRY CLERK - 07/15/2025 11:59 PM CSTHospital Encounter Department of Cardiovascular Diseases in [place], [place] [address] [place] [phone] Jo Bolaños MPAS, P.A.-C. [address] [place] [phone] Headache Unspecified Discharge Disposition: Home or Self Care Social History Tobacco UseTypesPacks/DayYears UsedDateSmoking Tobacco: NeverPassive Smoke Exposure: YesSmokeless Tobacco: NeverAlcohol UseStandard Drinks/WeekCommentsNot Currently0 (1 standard drink = 0.6 oz pure alcohol)when i was in my 20,s for a couple yrs drinks with ice creamAHC UtilitiesAnswerDate RecordedIn the past 12 months has the electric, gas, oil, or water [employer] threatened to shut off services in your home?No12/20/2024Hunger Vital SignAnswerDate RecordedWithin the past 12 months, you worried that your food would run out before you got the money to buymore.Never true05/19/2025Within the past 12 months, the food you [...] live12/20/2024CommentsNoSex and Gender InformationValueDate RecordedSex Assigned at BvizzQwuzpq15/19/2025 6:27 PM CDT Legal VgsCkhebe84/02/2017 4:56 AM CSTGender DnotaebpDhmcxx47/19/2025 6:27 PM CDT Sexual UqpaevuzkigHsugjejj95/19/2025 6:27 PM CDTdocumented as of this encounter [...] tablet (20 mg total) every other day.03/09/2025 glipiZIDE (GlucotroL) 5 mg tablet Take 1 tablet (5 mg total) by mouth daily before morning meal. 90 tablet isosorbide mononitrate (Imdur) 120 mg 24 hr tablet TAKE ONE TABLET BY MOUTH EVERY DAY BEFORE MEALS 90 tablet lisinopriL 20 mg tablet Take 1 tablet [...] as needed for chest pain. 100 tablet 111 omeprazole (PriLOSEC) [address] capsule take one capsule by mouth once daily before a meal03/20/2025 pantoprazole (Protonix) 40 mg EC tablet Take 1 tablet (40 mg total) by mouth daily before morning meal. 90 tablet rosuvastatin (Crestor) 10 mg tablet Take 10 mg by mouth at bedtime.09/27/2024documented as of this encounter Plan of Treatment DateTypeDepartmentCare Team (Latest Contact Info)Uugihsnnmhr63/05/2026 9:30 AM CSTDiagnostic Department of Otorhinolaryngology in [place], [place] [address] [place] [address] Christy Luque, P.A.-CMiquel [address] [place] [address] Addy Burgos Au.D. [address] [place] [address] 09/07/2025 9:50 AM CSTAppointment Department of Laboratory Medicine in [place], [place] [address] [place] [phone] Jo Bolaños MPAS, P.A.-C. 300 [place] [phone] 09/09/2025 3:30 PM CSTOffice Visit Department of Community Internal Medicine in [address] [place] [address] Jo Bolaños, STANLEY, P.A.-C. [address] [facility] [place] [address] documented as of this encounter Procedures Procedure NamePriorityDate/TimeAssociated DiagnosisCommentsICD DUAL CHAMBER INTERROGATION WITH HUEEJQPVVBFFfkdazv88/12/2025 3:35 PM ORDER ENTRY CLERK Headache Unspecified documented in this encounter Results * ICD DUAL CHAMBER INTERROGATION WITH PROGRAMMING (07/15/2025 3:35 PM ORDER ENTRY CLERK) ComponentValueRef RangeTest MethodAnalysis TimePerformed AtPathologist SignatureMurj MRI ConditionalyesFOUNDATION LAB SYSTEMDate Time Interrogation [id number] LAB SYSTEMImplantable Pulse Generator ManufacturerMedtronicFOUNDATION LAB SYSTEMImplantable Pulse Generator Type DefibrillatorFOUNDATION LAB SYSTEMImplantable Pulse Generator ModelEvera MRI XT BNYD2N3QJBPPAPVKF LAB SYSTEMImplantable Pulse Generator Serial Number [id number] LAB SYSTEMImplantable Pulse Generator Implant Date [id number] LAB SYSTEMBattery Remaining Longevity7.0moFOUNDATION LAB SYSTEMBattery Voltage2.820FOUNDATION LAB SYSTEMBattery BUTT PRESSER Trigger2.730 [facility] SYSTEMBattery StatusOKFOUNDATION LAB SYSTEMCapacitor Charge Time4.700FOUNDATION LAB SYSTEMBrady Statistic RA Percent Paced99.92FOUNDATION LAB SYSTEMBrady Statistic RV Percent Paced0.04FOUNDATION LAB SYSTEMAtrial Tachy Statistic AT/AF [place] Percent0.00FOUNDATION LAB SYSTEMLead Channel Sensing Intrinsic Amplitude2.400FOUNDATION LAB SYSTEMLead Channel Impedance Qtcsw862TWUJBRMWMW LAB SYSTEMLead Channel Pacing Threshold Amplitude0.500 FOUNDATION LAB SYSTEMLead Channel Pacing Threshold Pulse Width0.4FOUNDATION LAB SYSTEMLead Channel Measurements Date and Mnkg69884261QSFCINQKAI LAB SYSTEM Lead Channel Setting Pacing Amplitude1.500FOUNDATION LAB SYSTEMLead Channel Setting Pacing Pulse Width0.4FOUNDATION LAB SYSTEMLead Channel Sensing Intrinsic Amplitude3.100FOUNDATION LAB SYSTEMLead Channel Setting Sensing Sensitivity0.30FOUNDATION LAB SYSTEMLead Channel Impedance Vfgoq322MMNONECTWS LAB SYSTEMLead Channel Pacing Threshold Amplitude0.750FOUNDATION LAB SYSTEM Lead Channel Pacing Threshold Pulse Width0.4FOUNDATION LAB SYSTEMLead Channel Measurements Date and Xecd27935625ZDSFYKHQNY LAB SYSTEMLead Channel Setting Pacing Amplitude2.000FOUNDATION LAB SYSTEMLead Channel Setting Pacing Pulse Width0.4FOUNDATION LAB SYSTEMBrady Setting Mode (NBG Code)AAIR_Or_DDDR FOUNDATION LAB SYSTEMBrady Setting Lower Rate Qcmiw57HFWCJZEPEM LAB SYSTEM Cal Setting AT Mode Switch Lmgz394ZPVWXBSLJK LAB SYSTEMBrady Setting Maximum Tracking Mwue906SNVRTBFTNE LAB SYSTEMBrady Setting Maximum Sensor Ysmm070 [facility] LAB SYSTEMTherapy Statistic Recent Shocks Cqpapol3KFFIXZQOCM LAB SYSTEMTherapy Statistic Recent ATP Salgjpbno5BSPSLDJKZT LAB SYSTEMMurj RV HV Dsvdigcft58YEJPDBUAHE LAB SYSTEMZone Setting Type CategoryVFFOUNDATION LAB SYSTEMMurj Rate 1188FOUNDATION LAB SYSTEMMurj TherapiesBurst, 35J, 35J, 35J, 35J, 35J, 35JFOUNDATION LAB SYSTEMZone Setting StatusOnFOUNDATION LAB SYSTEM Murj Zone ES7GBOKBCCGXE LAB SYSTEMZone Setting Type CategoryFVTFOUNDATION LAB SYSTEMZone Setting StatusOffFOUNDATION LAB SYSTEMMurj Zone FN2IXLUVWXTGT LAB SYSTEMZone Setting Type CategoryVTFOUNDATION LAB SYSTEMZone Setting StatusOff FOUNDATION LAB SYSTEMMurj Zone CK9ZLZWVBMIJG LAB SYSTEMZone Setting Type CategoryVT MonitorFOUNDATION LAB SYSTEMMurj Rate 1150FOUNDATION LAB SYSTEMZone Setting StatusMonitorFOUNDATION LAB SYSTEMMurj Zone EY8WOOQUUOIVX LAB SYSTEM Implantable Lead ManufacturerMedtronicFOUNDATION LAB SYSTEMImplantable Lead Lcrke8591 CapsureFix Novus MRIFOUNDATION LAB SYSTEMImplantable Lead Location Right AtriumFOUNDATION LAB SYSTEMImplantable Lead Connection StatusConnected [facility] LAB SYSTEMImplantable Lead Serial GyufmpQPS9637229JWGFMFHRRZ LAB SYSTEMImplantable Lead Implant [id number] LAB SYSTEMImplantable Lead Special FunctionLead length: 52.00 cmFOUNDATION LAB SYSTEMImplantable Lead ManufacturerMedtronicFOUNDATION LAB SYSTEMImplantable Lead Urmsr8048 [employer] Quattro Secure SFOUNDATION LAB SYSTEMImplantable Lead LocationRight VentricleFOUNDATION LAB SYSTEMImplantable Lead Connection StatusConnected [facility] SYSTEMImplantable Lead Serial [id number] LAB SYSTEMImplantable Lead Implant [id number] LAB SYSTEMImplantable Lead Special FunctionLead length: 58.00 cmFOUNDATION LAB SYSTEMAnatomical RegionLateralityModalityOther, OtherSpecimen (Source)Anatomical Location / LateralityCollection Method / VolumeCollection TimeReceived Time07/18/2025 8:53 AM ORDER ENTRY CLERK Impressions 07/18/2025 8:53 AM ORDER ENTRY CLERK Encounter Impression: Title: Normal In-Office: No Events In office device check prior to MRI. This is an MRI conditional device without abandoned leads. * Normal Device Function * Alerts or events: None * Battery: OK, 7 mos * Sensing, impedance and thresholds reviewed and tested * Presenting Rhythm: AP/VS at 71 bpm * Underlying Rhythm: Silent atrium w/ continued V-pacing at 30 bpm. * Heart Rate Histograms reviewed * Pacing and Detection Parameters were evaluated Title: Device Reprogrammed Device reprogrammed, changes are listed below: * Post shock V amplitude increased to 8V Plan: This patient underwent device interrogation. I agree that the device interrogation was medically indicated to provide appropriate care and continue routine device interrogations as indicated. Encounter Summary: This report includes 1 transmission that was received on 2025-07-15. Battery, lead impedance, sensing amplitude and pacing threshold data was reviewed. Narrative Procedure Note Jim Alvarez M.B., B.Ch., B.A.O. - 07/18/2025 IMPRESSION: Encounter Impression: Title: Normal In-Office: No Events In office device check prior to MRI. This is an MRI conditional devicewithout abandoned leads. * Normal Device Function * Alerts or events: None * Battery: OK, 7 mos * Sensing, impedance and thresholds reviewed and tested * Presenting Rhythm: AP/VS at 71 bpm * Underlying Rhythm: Silent atrium w/ continued V-pacing at 30 bpm. * Heart Rate Histograms reviewed * Pacing and Detection Parameters were evaluated Title: Device Reprogrammed Device reprogrammed, changes are listed below: * Post shock V amplitude increased to 8V Plan: This patient underwent device interrogation. I agree that the device interrogation was medically indicated to provide appropriate care andcontinue routine device interrogations as indicated. Encounter Summary: This report includes 1 transmission that was receivedon 2025-07-15. Battery, lead impedance, sensing amplitude and pacingthreshold data was reviewed. Authorizing ProviderResult TypeResult StatusDesiree Eugene GonzalezAMiquel-Mario.CV IMPLANTABLE CARDIAC DEVICEFinal Result documented in this encounter Visit Diagnoses Diagnosis Headache Unspecified documented in this encounter Care Teams Team MemberRelationshipSpecialtyStart DateEnd Date Jo Bolaños MPAS, P.A.-C. [address] [place] [phone] PCP - GeneralInternal Bpkhjirq33/10/25documented as of this encounter
--- OUTSIDE RECORDS SUMMARY | 2025-07-21 11:37 | XMS_ITS | Encounter Summary ---
Author Organization [facility] Address [address] [place] [address] Care Team Providers Care Metrologist Name Role Phone Jo Bolaños P.A.-C. Primary Care Pro vider Encounter Details DateTypeDepartmentCare Team (Latest Contact Info)Tyfaubbnecl85/18/2025 11:37 AM PROFESSIONAL ORGANIZER - 07/21/2025 11:59 PM CSTHospital Encounter Department of Cardiovascular Diseases in [place], [place] [address] [place] [address] Alirio Vallejo M.D. [address] [place] [address] Discharge Disposition: Home or Self Care Social History Tobacco UseTypesPacks/DayYears UsedDateSmoking Tobacco: NeverPassive Smoke Exposure: YesSmokeless Tobacco: NeverAlcohol UseStandard Drinks/WeekCommentsNot Currently0 (1 standard drink = 0.6 oz pure alcohol)when i was in my 20,s for a couple yrs drinks with ice creamAHC UtilitiesAnswerDate RecordedIn the past 12 months has the electric, gas, oil, or water [employer] threatened to shut off services in your [...] live12/20/2024CommentsNoSex and Gender InformationValueDate RecordedSex Assigned at NjlzmSvhqwa11/19/2025 6:27 PM CDT Legal CnpKnwzuf07/02/2017 4:56 AM CSTGender CalbitrxNmrqbz95/19/2025 6:27 PM CDT Sexual TwfbrppfjsqPdywtjny73/19/2025 6:27 PM CDTdocumented as of this encounter [...] Plan of Treatment DateTypeDepartmentCare Team (Latest Contact Info)Ylaqqrbxgzq00/05/2026 9:30 AM CSTDiagnostic Department of Otorhinolaryngology in [place], [place] [address] [place] [address] Christy Luque, P.A.-CMiquel [address] [place] [address] Addy Burgos Au.D. [address] [place] [address] 09/07/2025 9:50 AM CSTAppointment Department of Laboratory Medicine in [place], [place] [address] [place] [phone] Jo Bolaños MPAS, P.A.-C. [address] [place] [phone] 09/09/2025 3:30 PM CSTOffice Visit Department of Community Internal Medicine in [place], [place] [address] [place] [phone] Jo Bolaños MPAS, P.A.-C. [address] [facility] [place] [address] documented as of this encounter Procedures Procedure NamePriorityDate/TimeAssociated DiagnosisCommentsINTERFACED REMOTE DEVICE XRYVWBnrsmve16/18/2025 11:37 AM PROFESSIONAL ORGANIZER documented in this encounter Results * CAR CARDIAC DEVICE INTERROGATION (07/21/2025 11:37 AM PROFESSIONAL ORGANIZER)ComponentValueRef RangeTest MethodAnalysis TimePerformed AtPathologist SignatureMurj MRI ConditionalyesFOUNDATION LAB SYSTEMDate Time Interrogation Session [id number] LAB SYSTEMType Interrogation SessionRemoteFOUNDATION LAB SYSTEMImplantable Pulse Generator ManufacturerMedtronicFOUNDATION LAB SYSTEMImplantable Pulse Generator TypeDefibrillatorFOUNDATION LAB SYSTEM Implantable Pulse Generator ModelEvera MRI XT [id number] LAB SYSTEM Implantable Pulse Generator Serial [id number] LAB SYSTEM Implantable Pulse Generator Implant [id number] LAB SYSTEMBattery Remaining Longevity7.0moFOUNDATION LAB SYSTEMBattery Voltage2.830FOUNDATION LAB SYSTEMBattery FOREIGN EXCHANGE DEALER Trigger2.727FOUNDATION LAB SYSTEMBattery StatusOK [place] [facility]OUNDATION LAB SYSTEMCapacitor Charge Time4.664FOUNDATION LAB SYSTEMBrady Statistic RA Percent Paced99.86FOUNDATION LAB SYSTEMBrady Statistic RV Percent Paced0.03FOUNDATION LAB SYSTEMAtrial Tachy Statistic AT/AF [place] Percent0.00 FOUNDATION LAB SYSTEMLead Channel Sensing Intrinsic Amplitude1.625FOUNDATION LAB SYSTEMLead Channel Setting Sensing Sensitivity0.60FOUNDATION LAB SYSTEM Lead Channel Impedance Ktbcr099GQHZZNXAAP LAB SYSTEMLead Channel Pacing Threshold Amplitude0.500FOUNDATION LAB SYSTEMLead Channel Pacing Threshold Pulse Width0.4FOUNDATION LAB SYSTEMLead Channel Measurements Date and Time [id number] LAB SYSTEMLead Channel Setting Pacing Amplitude1.500 [place] F[facility]ATION LAB SYSTEMLead Channel Setting Pacing Pulse Width0.4FOUNDATION LAB SYSTEMLead Channel Sensing Intrinsic Amplitude4.125FOUNDATION LAB SYSTEMLead Channel Setting Sensing Sensitivity0.30FOUNDATION LAB SYSTEMLead Channel Impedance Mvtil643DYKHLTVOUX LAB SYSTEMLead Channel Pacing Threshold Amplitude 0.750FOUNDATION LAB SYSTEMLead Channel Pacing Threshold Pulse Width0.4 [facility] SYSTEMLead Channel Measurements Date and [id number] LAB SYSTEMLead Channel Setting Pacing Amplitude2.000FOUNDATION LAB SYSTEMLead Channel Setting Pacing Pulse Width0.4FOUNDATION LAB SYSTEMBrady Setting Mode (NBG Code)AAIR<=>DDDRFOUNDATION LAB SYSTEMBrady Setting Lower Rate Limit70 [place] FOUNDATION LAB SYSTEMBrady Setting AT Mode Switch Uvri624PVKSJJUOHN LAB SYSTEM Cal Setting Maximum Tracking Frgx118HGJKYAADAX LAB SYSTEMBrady Setting Maximum Sensor Obtb225SRFJIZZOBQ LAB SYSTEMBrady Setting PAV Zwrfi102 [place] FOUNDATION LAB SYSTEMBrady Setting KAVITHA Xrylw496RAFGXWXSPD LAB SYSTEMTherapy Statistic Recent Shocks Btcdlpccd4CWBBISQQBU LAB SYSTEMTherapy Statistic Recent Shocks Ojwdnor4UFNFSDNCPE LAB SYSTEMTherapy Statistic Recent ATP Zbynokkpc7GDOOCDWOUR LAB SYSTEMMurj RV HV Gjhcntrgx65LJDUKDVEWC LAB SYSTEMLead Channel Setting Sensing PolarityBipolarFOUNDATION LAB SYSTEMLead Channel Setting Sensing PolarityBipolarFOUNDATION LAB SYSTEMLead Channel Setting Pacing PolarityBipolarFOUNDATION LAB SYSTEMLead Channel Setting Pacing PolarityBipolarFOUNDATION LAB SYSTEMLead Channel Pacing Threshold Polarity BipolarFOUNDATION LAB SYSTEMLead Channel Pacing Threshold PolarityBipolar [place] FOUNDATION LAB SYSTEMZone Setting Type CategoryAT/AFFOUNDATION LAB SYSTEMMurj Rate 1171FOUNDATION LAB SYSTEMMurj TherapiesAll Rx OffFOUNDATION LAB SYSTEM Zone Setting StatusMonitorFOUNDATION LAB SYSTEMMurj Zone MA4LMCQDFOMFF LAB SYSTEMZone Setting Type CategoryVFFOUNDATION LAB SYSTEMMurj Rate 1188 [place] FOUNDATION LAB SYSTEMMurj TherapiesATP During Charging, 58Uw9YROLKFSGWE LAB SYSTEMZone Setting StatusOnFOUNDATION LAB SYSTEMMurj Zone AP9MURPCKIHFN LAB SYSTEMZone Setting Type CategoryVTFOUNDATION LAB SYSTEMZone Setting StatusOff FOUNDATION LAB SYSTEMMurj Zone NG8CYQPWPNAIY LAB SYSTEMZone Setting Type CategoryVTFOUNDATION LAB SYSTEMZone Setting StatusOffFOUNDATION LAB SYSTEMMurj Zone JG2WUIPIFYQHD LAB SYSTEMZone Setting Type CategoryVTFOUNDATION LAB SYSTEM Murj Rate 1150FOUNDATION LAB SYSTEMMurj Rate 2150FOUNDATION LAB SYSTEMZone Setting StatusENABLEDFOUNDATION LAB SYSTEMMurj Zone CH7RYKCICBGNC LAB SYSTEM Implantable Lead ManufacturerMedtronicFOUNDATION LAB SYSTEMImplantable Lead Frrfc1202 CapsureFix Novus MRIFOUNDATION LAB SYSTEMImplantable Lead Location Right AtriumFOUNDATION LAB SYSTEMImplantable Lead Connection StatusConnected [place] FOUNDATION LAB SYSTEMImplantable Lead Serial HsxchtISN2621683XTPTVUKPVT LAB SYSTEMImplantable Lead Implant Rksn86142366ZBPGUVJILE LAB SYSTEMImplantable Lead Special FunctionLead length: 52.00 cmFOUNDATION LAB SYSTEMImplantable Lead ManufacturerMedtronicFOUNDATION LAB SYSTEMImplantable Lead Lfynb0865 Sprint Quattro Secure SFOUNDATION LAB SYSTEMImplantable Lead LocationRight VentricleFOUNDATION LAB SYSTEMImplantable Lead Connection StatusConnected [place] FOUNDATION LAB SYSTEMImplantable Lead Serial KbeghkEIS400982AWVIOQVVKRP LAB SYSTEMImplantable Lead Implant [id number] LAB SYSTEMImplantable Lead Special FunctionLead length: 58.00 cmFOUNDATION LAB SYSTEMAnatomical RegionLateralityModalityOtherSpecimen (Source)Anatomical Location / Laterality Collection Method / VolumeCollection TimeReceived Time07/21/2025 12:19 PM PROFESSIONAL ORGANIZER Impressions 07/21/2025 12:19 PM PROFESSIONAL ORGANIZER Encounter Impression: Title: Normal Remote: No Events * Normal Device Function * Alerts or events: None since 07/15/25 in office interrogation * Battery: ??7 mos * Sensing, impedance and thresholds reviewed * Programmed parameters reviewed * Presenting rhythm: AP/VS at 85 bpm. * Heart Rate Histograms reviewed * No significant changes noted Plan: This patient underwent device interrogation. I agree that the device interrogation was medically indicated to provide appropriate care and continue routine device interrogations as indicated. Encounter Summary: This report includes 1 transmission that was received on 2025-07-21. Battery, lead impedance, sensing amplitude and pacing threshold data was reviewed. Narrative Procedure Note Alirio Vallejo M.D. - 07/21/2025 IMPRESSION: Encounter Impression: Title: Normal Remote: No Events * Normal Device Function * Alerts or events: None since 07/15/25 in office interrogation * Battery: 7 mos * Sensing, impedance and thresholds reviewed * Programmed parameters reviewed * Presenting rhythm: AP/VS at 85 bpm. * Heart Rate Histograms reviewed * No significant changes noted Plan: This patient underwent device interrogation. I agree that the device interrogation was medically indicated to provide appropriate care andcontinue routine device interrogations as indicated. Encounter Summary: This report includes 1 transmission that was receivedon 2025-07-21. Battery, lead impedance, sensing amplitude and pacingthreshold data was reviewed. Authorizing ProviderResult TypeResult StatusDurob Vallejo M.D.CV IMPLANTABLE CARDIAC DEVICEFinal Result documented in this encounter Visit Diagnoses Not on filedocumented in this encounter Care Teams Team MemberRelationshipSpecialtyStart DateEnd Date Jo Bolaños MPAS, P.A.-C. [address] [place] [phone] PCP - GeneralInternal Jsehherm78/10/25documented as of this encounter
--- OUTSIDE RECORDS SUMMARY | 2025-07-22 10:51 | XMS_ITS | Encounter Summary ---
Author Organization [facility] Address [address] [place] [address] Care Team Providers Care Crystal Grower Name Role Phone Jo Bolaños P.A.-C. Primary Care Pro vider Reason for Referral * MRI/CAT/PET Scan (Routine) - ClosedSpecialtyDiagnoses / ProceduresReferred By ContactReferred To ContactRadiology Diagnoses Headache Unspecified Procedures MR Brain without and with IV Contrast Jo Bolaños MPAS, P.A.-C. [address] [place] [address] Phone: tel: fax: [facility] Referral IDStatusReasonStart DateExpiration DateVisits RequestedVisits [id number]/22/202511/ TER PACKAGING MACHINE OPERATOR Reason for Visit * MRI/CAT/PET Scan (Routine) - ClosedSpecialtyDiagnoses / ProceduresReferred By ContactReferred To ContactRadiology Diagnoses Headache Unspecified Procedures MR Brain without and with IV Contrast Jo Bolaños MPAS, P.A.-C. [address] [place] [address] Phone: tel: fax: [facility] Referral IDStatusReasonStart DateExpiration DateVisits RequestedVisits [id number]/22/[id number]/ Encounter Details DateTypeDepartmentCare Team (Latest Contact Info)Oavnqgwvump81/19/2025 10:51 AM BLISTER PACKAGING MACHINE OPERATOR - 07/22/2025 11:09 AM CSTHospital Encounter Department of Radiology, [facility] in [place], [place] [address] [place] [address] Jo Bolaños MPAS, P.A.-C. [address] [place] [address] Headache Unspecified Discharge Disposition: Home or Self Care Social History Tobacco UseTypesPacks/DayYears UsedDateSmoking Tobacco: NeverPassive Smoke Exposure: YesSmokeless Tobacco: NeverAlcohol UseStandard Drinks/WeekCommentsNot Currently0 (1 standard drink = 0.6 oz pure alcohol)when i was in my 20,s for a couple yrs drinks with ice creamAHC UtilitiesAnswerDate RecordedIn the past 12 months has the [employer], gas, oil, or water [employer] threatened to shut off services in your [...] live12/20/2024CommentsNoSex and Gender InformationValueDate RecordedSex Assigned at ZzytcFuxspi00/19/2025 6:27 PM CDT Legal XdvGeowlt54/02/2017 4:56 AM CSTGender YcpqvynyOlgxdm54/19/2025 6:27 PM CDT Sexual DfkfqeosrzxHkyqumnc00/19/2025 6:27 PM CDTdocumented as of this encounter [...] mouth at bedtime.09/27/2024documented as of this encounter Nursing Notes * Citlaly Pérez R.N. - 07/22/2025 11:15 AM CST Pre-scan, patient is being sent to x-ray to verify MRI conditions of bladder stimulator. Patient verbalized understanding and agreed to plan. Pre-assessment: Attach MRI-safe ECG leads and obtain blood pressure, oxygen saturation, heart rate,and rhythm. Chart in Vital Signs tab or flowsheets (outside of scanner, can be in zone 3). Does the patient have: An active pacemaker currently in place: Yes Previous MRI with pacemaker:no Complications:n/a Current or known problems with leads: none If yes to any of the above, notify radiologist before proceeding. If the patient currently has an active pacemaker, notify Radiologists and MRI technologists to determine if they can safely be scanned. If so, contact the pacemaker nurse for monitoring. Intraprocedure: Continuously monitor ECG and oxygen saturations. Chart Oxygen saturation, heart rate, and rhythm one time during procedure if unchanged. Document any changes in rhythm. Does the patient have pain, discomfort, or burning sensation in chest area, or any other symptoms: None Post-procedure (outside of scanner, can be in zone 3): Obtain blood pressure, oxygen saturation, heart rate and rhythm and document in flow sheets. Remove IV unless needed for other exams and discharge per Radiologist recommendation Pre exam, patient's pacemaker/defibrillator was interogated and turned to MRI SAFE MODE by pacemaker RN. Patient tolerated MRI exam well. Patient did not report any adverse side effects or any chest pain/discomfort. Oxygen saturation, heart rate and rhythm monitored throughout. Post exam:patient's pacemaker/defibrillator was interrogated and turned to regular functioning modeby pacemaker RN. Patient's IV discontinued, pressure dressing applied and patient dismissed to nextappointment. TER PACKAGING MACHINE OPERATOR documented in this encounter Plan of Treatment DateTypeDepartmentCare Team (Latest Contact Info)Xcejxhgwqht18/05/2026 9:30 AM CSTDiagnostic Department of Otorhinolaryngology in [place], [place] [address] [place] [address] Christy Luque P.A.-CMiquel [address] [place] [address] Addy Burgos Au.D. [address] [place] [address] 09/07/2025 9:50 AM CSTAppointment Department of Laboratory Medicine in [place], [place] [address] [place] [address] Jo Bolaños MPAS, P.A.-C. [address] [place] [address] 09/09/2025 3:30 PM CSTOffice Visit Department of Community Internal Medicine in [address] [phone] Jo Bolaños MPAS, P.A.-C. [address] [place] [address] documented as of this encounter Procedures Procedure NamePriorityDate/TimeAssociated DiagnosisCommentsMR BRAIN WITHOUT AND WITH IV CONTRASTRAD - Routine (most inpatients and all outpatients)07/22/2025 1:29 PM BLISTER PACKAGING MACHINE OPERATOR Headache Unspecified documented in this encounter Results * MR Brain without and with IV Contrast (07/22/2025 1:29 PM BLISTER PACKAGING MACHINE OPERATOR)Anatomical RegionLateralityModalityHead, Brain, Neuroradiology RST LOS, Neuroradiology ARZ LOS, Neuroradiology FLA LOSN/AMagnetic ResonanceSpecimen (Source) Anatomical Location / LateralityCollection Method / VolumeCollection Time Received Time Impressions 07/22/2025 2:31 PM BLISTER PACKAGING MACHINE OPERATOR 1. No acute intracranial abnormality identified. 2. 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 3. 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 4. Signal abnormality in the left sigmoid sinus may represent slow flow or potentially thrombosis. Narrative 07/22/2025 2:31 PM BLISTER PACKAGING MACHINE OPERATOR EXAM: MR BRAIN WITHOUT AND WITH IV CONTRAST TECHNICAL NOTE: This patient has an MR conditional cardiac implantable electronic device. Scanning was performed in accordance with the specified MR conditions. Cardiology/ACLS certified personnel programmed the device appropriately before and after the MRI and monitored the patient for the entire MR exam.TECHNICAL NOTE: This patient has an MR conditional Sacral Nerve/Bladder Stimulator. Scanningwas performed in accordance with the specified MR conditions. COMPARISON: 12/01/[address] FINDINGS: Small focal area of encephalomalacia and gliosis in the medial left occipital lobe compatible with a chronic infarct, unchanged. Small chronic infarct in the anterior right caudate nucleus,unchanged. No acute infarct/restricted diffusion. No mass lesions, hemorrhage or pathologic enhancem ent. Cerebral atrophy. The degree of lateral and third ventriculomegaly is somewhat disproportionate to the degree of cerebral sulcal prominence, most notable over the convexity where there is some mild crowding of the gyri and sulci raising the possibility of a superimposed component of communicating hydrocephalus/normal pressure hydrocephalus (NPH). Rzxk-hp-jtaqknoh leukoaraiosis. Hyperintense FLAIR and T1 signal in the left sigmoid sinus. The remainder of the major intracranial vascular flowvoids are maintained. Bilateral ocular lens implants. Orbits otherwise unremarkable. Minimal membrane thickening scattered about the paranasal sinuses. Tecu-jn-fuktlleb opacification of the left mastoid air cells. The pituitary gland is within normal limits. The calvarium and skull base are unremarkable. Procedure Note Yvon Horne M.D. - 07/22/2025 EXAM: MR BRAIN WITHOUT AND WITH IV CONTRAST TECHNICAL NOTE: This patient has an MR conditional cardiac implantableelectronic device. Scanning was performed in accordance with the specifiedMR conditions. Cardiology/ACLS certified personnel programmed the deviceappropriately before and after the MRI and monitored the patient for theentire MR exam.TECHNICAL NOTE: This patient has an MR conditional SacralNerve/Bladder Stimulator. Scanning was performed in accordance with thespecified MR conditions. COMPARISON: 12/01/[address] FINDINGS: Small focal area of encephalomalacia and gliosis in the medialleft occipital lobe compatible with a chronic infarct, unchanged. Smallchronic infarct in the anterior right caudate nucleus, unchanged. No acute infarct/restricted diffusion. No mass lesions, hemorrhage or pathologic enhancement. Cerebral atrophy. The degree of lateral and thirdventriculomegaly is somewhat disproportionate to the degree of cerebralsulcal prominence, most notable over the convexity where there is somemild crowding of the gyri and sulci raising the possibility of asuperimposed component of communicating hydrocephalus/normal pressurehydrocephalus (NPH). Ekbz-ac-wiucrqbl leukoaraiosis. Hyperintense FLAIRand T1 signal in the left sigmoid sinus. The remainder of the majorintracranial vascular flow voids are maintained. Bilateral ocular lensimplants. Orbits otherwise unremarkable. Minimal membrane thickening scattered about the paranasal sinuses. Mayq-be-rhemloyl opacification ofthe left mastoid air cells. The pituitary gland is within normal limits.The calvarium and skull base are unremarkable. IMPRESSION: 1. No acute intracranial abnormality identified. 2. 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 3. 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 4. Signal abnormality in the left sigmoid sinus may represent slow flow or potentially thrombosis. Authorizing ProviderResult TypeResult StatusDesiree Mami ANGEL P.A.-C.IMG MRI PROCEDURESFinal Result documented in this encounter Visit Diagnoses Diagnosis Headache Unspecified documented in this encounter Administered Medications Medication OrderMAR ActionAction DateDoseRateSite gadobutrol injection 0.01-30 mL (Gadavist) 0.01-30 mL, intravenous, Once in imaging, contrast, Starting on Fri07/22/25 at 1106, For 1 dose, Imaging Protocol Orders, Dose per Radiant Medication Guidelines Intrathecal doses greater than 0.25 mL not recommended. Given07/22/2025 1:20 PM CST10 mLdocumented in this encounter Care Teams Team MemberRelationshipSpecialtyStart DateEnd Date Jo Bolaños MPAS, P.A.-C. [address] [place] [address] [place] [phone] PCP - GeneralInternal Cyspvleb84/10/25documented as of this encounter
--- OUTSIDE RECORDS SUMMARY | 2025-07-22 11:10 | XMS_ITS | Encounter Summary ---
Author Organization [facility] Address [address] [place] [address] Care Team Providers Care Field Human Resources Manager Name Role Phone Jo Bolaños P.A.-C. Primary Care Pro vider Encounter Details DateTypeDepartmentCare Team (Latest Contact Info)Olzkfrycnqu91/19/2025 11:10 AM ENGINEERING SECRETARY - 07/22/2025 11:34 AM CSTHospital Encounter Department of Cardiovascular Diseases in [place], [place] [address] [place] [address] Ashok Butcher M.B.B.S. [address] [place] [address] Encounter For Checking And Testing Of Cardiac Pacemaker Pulse Generator Battery Discharge Disposition: Home or Self Care Social History Tobacco UseTypesPacks/DayYears UsedDateSmoking Tobacco: NeverPassive Smoke Exposure: YesSmokeless Tobacco: NeverAlcohol UseStandard Drinks/WeekCommentsNot Currently0 (1 standard drink = 0.6 oz pure alcohol)when i was in my 20,s for a couple yrs drinks with ice creamAHC UtilitiesAnswerDate RecordedIn the past 12 months has the electric, gas, oil, or water [employer] threatened to shut off services in your [...] live12/20/2024CommentsNoSex and Gender InformationValueDate RecordedSex Assigned at FrurwSbrnlv04/19/2025 6:27 PM CDT Legal SbaHuhurl45/02/2017 4:56 AM CSTGender ZqlogadzDxskyl98/19/2025 6:27 PM CDT Sexual PzucqfhfvbsRuckxslm80/19/2025 6:27 PM CDTdocumented as of this encounter [...] Plan of Treatment DateTypeDepartmentCare Team (Latest Contact Info)Vocoxticlfm27/05/2026 9:30 AM CSTDiagnostic Department of Otorhinolaryngology in [place], [place] [address] [place] [address] Christy Luque, P.A.-CMiquel [address] [place] [address] Addy Burgos Au.D. [address] [place] [address] 09/07/2025 9:50 AM CSTAppointment Department of Laboratory Medicine in [place], [place] [address] [place] [phone] Jo Bolaños MPAS, P.A.-C. [address] [place] [phone] 09/09/2025 3:30 PM CSTOffice Visit Department of Community Internal Medicine in [place], [place] [address] [facility] [place] [address] Jo Bolaños MPAS, P.A.-C. 300 [facility] [place] [address] documented as of this encounter Procedures Procedure NamePriorityDate/TimeAssociated DiagnosisCommentsPACER PERIOPERATIVE WKKOJYROBJOLXYusigjv68/19/2025 12:55 PM ENGINEERING SECRETARY Encounter For Checking And Testing Of Cardiac Pacemaker Pulse Generator Battery documented in this encounter Results * PACER PERIOPERATIVE INTERROGATION (07/22/2025 12:55 PM ENGINEERING SECRETARY)ComponentValueRef RangeTest MethodAnalysis TimePerformed AtPathologist SignatureMurj MRI ConditionalyesFOUNDATION LAB SYSTEMDate Time Interrogation Session [id number] LAB SYSTEMImplantable Pulse Generator Upholstery Technician MedtronicFOUNDATION LAB SYSTEMImplantable Pulse Generator TypeDefibrillator [facility] SYSTEMImplantable Pulse Generator ModelEvera MRI XT HLER7F1 [facility] SYSTEMImplantable Pulse Generator Serial [id number] [facility] SYSTEMImplantable Pulse Generator Implant [id number] [facility] LAB SYSTEMBattery Remaining Longevity7.0moFOUNDATION LAB SYSTEM Battery Voltage2.830FOUNDATION LAB SYSTEMBattery PUBLIC WORKS INSPECTOR Trigger2.730FOUNDATION LAB SYSTEMBattery StatusMOSFOUNDATION LAB SYSTEMCapacitor Charge Time4.700 FOUNDATION LAB SYSTEMBrady Statistic RA Percent Paced99.88FOUNDATION LAB SYSTEMBrady Statistic RV Percent Paced0.04FOUNDATION LAB SYSTEMAtrial Tachy Statistic AT/AF [place] Percent0.00FOUNDATION LAB SYSTEMLead Channel Impedance Mhxwc130FBTFUXREKS LAB SYSTEMLead Channel Pacing Threshold Amplitude0.500 FOUNDATION LAB SYSTEMLead Channel Pacing Threshold Pulse Width0.4FOUNDATION LAB SYSTEMLead Channel Measurements Date and Kjse73302068QPBTDIERVF LAB SYSTEM Lead Channel Setting Pacing Amplitude5.000FOUNDATION LAB SYSTEMLead Channel Setting Pacing Pulse Width1.0FOUNDATION LAB SYSTEMLead Channel Sensing Intrinsic Amplitude4.900FOUNDATION LAB SYSTEMLead Channel Setting Sensing Sensitivity0.30FOUNDATION LAB SYSTEMLead Channel Impedance Nnlzk131RJQQKIXIUB LAB SYSTEMLead Channel Pacing Threshold Amplitude0.750FOUNDATION LAB SYSTEM Lead Channel Pacing Threshold Pulse Width0.4FOUNDATION LAB SYSTEMLead Channel Measurements Date and Mkow18509747OFYLDXRYTK LAB SYSTEMBrady Setting Mode (NBG Code)AOOFOUNDATION LAB SYSTEMBrady Setting Lower Rate Dpwzb19AGCPYWFWYW LAB SYSTEMTherapy Statistic Recent Shocks Qgcyjum3NDUDWBQRST LAB SYSTEMTherapy Statistic Recent ATP Ocqivguad4AHJWIBIKAY LAB SYSTEMMurj RV HV Oxyfsxkiy06 FOUNDATION LAB SYSTEMZone Setting Type CategoryVFFOUNDATION LAB SYSTEMMurj Rate 1188FOUNDATION LAB SYSTEMMurj TherapiesBurst, 35J, 35J, 35J, 35J, 35J, 35JFOUNDATION LAB SYSTEMZone Setting StatusOffFOUNDATION LAB SYSTEMMurj Zone KZ7OWTNEDNSII LAB SYSTEMZone Setting Type CategoryFVTFOUNDATION LAB SYSTEMZone Setting StatusOffFOUNDATION LAB SYSTEMMurj Zone PH1QMRYTTUOIH LAB SYSTEMZone Setting Type CategoryVTFOUNDATION LAB SYSTEMZone Setting StatusOffFOUNDATION LAB SYSTEMMurj Zone PF4EQGOQYQIRG LAB SYSTEMZone Setting Type CategoryVT MonitorFOUNDATION LAB SYSTEMMurj Rate 1150FOUNDATION LAB SYSTEMZone Setting StatusOffFOUNDATION LAB SYSTEMMurj Zone ZY2QRVPBJVPQO LAB SYSTEMImplantable Lead ManufacturerMedtronicFOUNDATION LAB SYSTEMImplantable Lead Ylpln5842 CapsureFix Novus MRIFOUNDATION LAB SYSTEMImplantable Lead LocationSumma Health [facility] Atrium [facility] LAB SYSTEMImplantable Lead Connection StatusConnectedFOUNDATION LAB SYSTEMImplantable Lead Serial JlmogdIBQ9270369MLGFBPRUNG LAB SYSTEMImplantable Lead Implant Hfzq00300035FIPEIGFAPO LAB SYSTEMImplantable Lead Special FunctionLead length: 52.00 cmFOUNDATION LAB SYSTEMImplantable Lead ManufacturerMedtronicFOUNDATION LAB SYSTEMImplantable Lead Zypqx5347 Sprint Quattro Secure SFOUNDATION LAB SYSTEMImplantable Lead LocationRight Ventricle FOUNDATION LAB SYSTEMImplantable Lead Connection StatusConnectedFOUNDATION LAB SYSTEMImplantable Lead Serial JurywhJNC597540PRDDZLRUIZP LAB SYSTEMImplantable Lead Implant [id number] LAB SYSTEMImplantable Lead Special FunctionLead length: 58.00 cmFOUNDATION LAB SYSTEMAnatomical RegionLaterality ModalityOtherSpecimen (Source)Anatomical Location / LateralityCollection Method / VolumeCollection TimeReceived Time07/22/2025 8:50 PM ENGINEERING SECRETARY Impressions 07/22/2025 8:50 PM ENGINEERING SECRETARY Encounter Impression: Title: Pre-MRI Check * Pre-MRI device interrogation performed. This is a MRI conditional system with no abandon leads. * Sensing, impedance and thresholds reviewed and tested * Presenting rhythm: ??AP/VS at 70 bpm. * Underlying rhythm: Silent atrium. ??Intact AV conduction when tested AAI at 30 bpm. Continued to DYNAMO TENDER 30 bpm when tested VVI. * No observed device anomalies pre-MRI * Device reprogrammed: Yes, AOO at 85 bpm. Patient did not tolerate DOO. Title: Device Reprogrammed Device reprogrammed, changes are listed below: * Mode: AAIR <->DDDR to AOO * LRL changed from 70 to 85 ??bpm. * RA amplitude changed from 1.5V/0.4ms to 5V/1.0ms * Tachy turned OFF. Plan: This patient underwent device interrogation. I agree that the device interrogation was medically indicated to provide appropriate care and continue routine device interrogations as indicated. Follow up post MRI in the MRI suite. Encounter Summary: This report includes 1 transmission that was received on 2025-07-22. Battery, lead impedance, sensing amplitude and pacing threshold data was reviewed. Narrative Procedure Note Steve Mcmahon M.D., M.S. - 07/22/2025 IMPRESSION: Encounter Impression: Title: Pre-MRI Check * Pre-MRI device interrogation performed. This is a MRI conditionalsystem with no abandon leads. * Sensing, impedance and thresholds reviewed and tested * Presenting rhythm: AP/VS at 70 bpm. * Underlying rhythm: Silent atrium. Intact AV conduction when tested AAIat 30 bpm. Continued to DYNAMO TENDER 30 bpm when tested VVI. * No observed device anomalies pre-MRI * Device reprogrammed: Yes, AOO at 85 bpm. Patient did not tolerate DOO. Title: Device Reprogrammed Device reprogrammed, changes are listed below: * Mode: AAIR <->DDDR to AOO * LRL changed from 70 to 85 bpm. * RA amplitude changed from 1.5V/0.4ms to 5V/1.0ms * Tachy turned OFF. Plan: This patient underwent device interrogation. I agree that the device interrogation was medically indicated to provide appropriate care andcontinue routine device interrogations as indicated. Follow up post MRI in the MRI suite. Encounter Summary: This report includes 1 transmission that was receivedon 2025-07-22. Battery, lead impedance, sensing amplitude and pacingthreshold data was reviewed. Authorizing ProviderResult TypeResult StatusAbhishegenie CanCV IMPLANTABLE CARDIAC DEVICEFinal Result documented in this encounter Visit Diagnoses Diagnosis Encounter For Checking And Testing Of Cardiac Pacemaker Pulse Generator Battery documented in this encounter Care Teams Team MemberRelationshipSpecialtyStart DateEnd Date Jo Bolaños MPAS, P.A.-C. [address] [place] [phone] PCP - GeneralInternal Pfvjqlhb56/10/25documented as of this encounter
--- OUTSIDE RECORDS SUMMARY | 2025-07-22 11:35 | XMS_ITS | Encounter Summary ---
Author Organization [facility] Address [address] [place] [address] Care Team Providers Care Solar Energy Specialist Name Role Phone Jo Bolaños P.A.-C. Primary Care Pro vider Reason for Referral * Outpatient (Routine) - ClosedSpecialtyDiagnoses / ProceduresReferred By ContactReferred To Contact Diagnoses Headache Unspecified Procedures DX Pelvis 1-2 Views DX Pelvis 1-2 Views Jo Bolaños MPAS, P.A.-CMiquel [address] [place] [address] Phone: tel: fax: [facility] Region Referral IDStatusSagrarioasonStart DateExpiration DateVisits RequestedVisits [id number]/19/20253/ SOFTWARE ENGINEER Reason for Visit * Outpatient (Routine) - ClosedSpecialtyDiagnoses / ProceduresReferred By ContactReferred To Contact Diagnoses Headache Unspecified Procedures DX Pelvis 1-2 Views DX Pelvis 1-2 Views Jo Bolaños MPAS, P.A.-CMiquel [address] [place] [address] Phone: tel: fax: [facility] Region Referral IDStatusSagrarioasonStart DateExpiration DateVisits RequestedVisits [id number]/19/26412/ Encounter Details DateTypeDepartmentCare Team (Latest Contact Info)Dhusbqmyaou81/19/2025 11:35 AM ETL SOFTWARE ENGINEER - 07/22/2025 12:39 PM CSTHospital Encounter Department of Radiology, [facility], in [place], [place] [address] [place] [address] Jo Bolaños MPAS, P.A.-C. [address] [place] [address] Headache Unspecified Discharge Disposition: Home or Self Care Social History Tobacco UseTypesPacks/DayYears UsedDateSmoking Tobacco: NeverPassive Smoke Exposure: YesSmokeless Tobacco: NeverAlcohol UseStandard Drinks/WeekCommentsNot Currently0 (1 standard drink = 0.6 oz pure alcohol)when i was in my 20,s for a couple yrs drinks with ice creamAHC UtilitiesAnswerDate RecordedIn the past 12 months has the [place], gas, oil, or water [employer] threatened to shut off services in your [...] live12/20/2024CommentsNoSex and Gender InformationValueDate RecordedSex Assigned at KpqdzCojvde77/19/2025 6:27 PM CDT Legal GlwVklxur32/02/2017 4:56 AM CSTGender RtzfbcbeNqtcxj89/19/2025 6:27 PM CDT Sexual KafhfeshnbfTzchdgjs49/19/2025 6:27 PM CDTdocumented as of this encounter [...] Plan of Treatment DateTypeDepartmentCare Team (Latest Contact Info)Bbrufztsral18/05/2026 9:30 AM CSTDiagnostic Department of Otorhinolaryngology in [place], [place] [address] [place] [address] Christy Luque P.A.-CMiquel [address] [place] [address] Addy Burgos Au.D. [address] [place] [address] 09/07/2025 9:50 AM CSTAppointment Department of Laboratory Medicine in [place], [place] [address] [place] [address] Jo Bolaños MPAS, P.A.-CMiquel [address] [place] [address] 09/09/2025 3:30 PM CSTOffice Visit Department of Community Internal Medicine in [place], [place] [address] [place] [address] Jo Bolaños MPAS, P.A.-CMiquel [address] [place] [address] documented as of this encounter Procedures Procedure NamePriorityDate/TimeAssociated DiagnosisCommentsDX PELVIS 1-2 VIEWS RAD - Routine (most inpatients and all outpatients)07/22/2025 11:58 AM ETL SOFTWARE ENGINEER Headache Unspecified documented in this encounter Results * DX Pelvis 1-2 Views (07/22/2025 11:58 AM ETL SOFTWARE ENGINEER)Anatomical RegionLaterality ModalityPelvis, Musculoskeletal RST LOS, Musculoskeletal ARZ LOS, Muskuloskeletal FLA LOSN/ADigital RadiographySpecimen (Source)Anatomical Location / LateralityCollection Method / VolumeCollection TimeReceived Time Impressions 07/22/2025 12:05 PM ETL SOFTWARE ENGINEER Redemonstrated sacral stimulator and lead which appears intact and similar to 11/25/2024. Narrative 07/22/2025 12:05 PM ETL SOFTWARE ENGINEER EXAM: DX PELVIS 1-2 VIEWS Procedure Note Yvon Horne M.D. - 07/22/2025 EXAM: DX PELVIS 1-2 VIEWS IMPRESSION: Redemonstrated sacral stimulator and lead which appears intact and similarto 11/25/2024. Authorizing ProviderResult TypeResult StatusDesiree Mami ANGEL P.A.-C.IMG DIAGNOSTIC IMAGING PROCEDURESFinal Result documented in this encounter Visit Diagnoses Diagnosis Headache Unspecified documented in this encounter Care Teams Team MemberRelationshipSpecialtyStart DateEnd Date Jo Bolaños MPAS, PMiquelAMiquel-Mario. [address] [place] [address] [place] [address] PCP - GeneralInternal Igxpjvzc98/10/25documented as of this encounter
--- OUTSIDE RECORDS SUMMARY | 2025-07-22 12:40 | XMS_ITS | Encounter Summary ---
Author Organization [facility] Address [address] [place] [address] Care Team Providers Care Provider Relations Specialist Name Role Phone Jo Bolaños P.A.-C. Primary Care Pro vider Encounter Details DateTypeDepartmentCare Team (Latest Contact Info)Kmiovdfkixm58/19/2025 12:40 PM COUPLER - 07/22/2025 11:59 PM CSTHospital Encounter Department of Cardiovascular Diseases in [place], [place] [address] [place] [address] Ashok Butcher M.B.B.S. [address] [place] [address] Encounter For Checking And Testing Of Cardiac [...] has the electric, gas, oil, or water 8villages threatened to shut off services in your [...] live12/20/2024CommentsNoSex and Gender InformationValueDate RecordedSex Assigned at QzcyfYqrbhx51/19/2025 6:27 PM CDT Legal ZidSupuik16/02/2017 4:56 AM CSTGender FcprnuwaGbutkd66/19/2025 6:27 PM CDT Sexual UioudqtrdnvJvkavqjf75/19/2025 6:27 PM CDTdocumented as of this encounter [...] Plan of Treatment DateTypeDepartmentCare Team (Latest Contact Info)Vazcjfrptoj01/05/2026 9:30 AM CSTDiagnostic Department of Otorhinolaryngology in [place], [place] [address] [place] [address] Christy Luque, P.A.-CMiquel [address] [place] [address] Addy Burgos Au.D. [address] [place] [address] 09/07/2025 9:50 AM CSTAppointment Department of Laboratory Medicine in [place], [place] [address] [place] [phone] Jo Bolaños MPAS, P.A.-C. [address] [place] [address] 09/09/2025 3:30 PM CSTOffice Visit Department of Community Internal Medicine in [place], [place] [address] [facility] [place] [address] Jo Bolaños MPAS, P.A.-C. 300 [facility] [place] [address] documented as of this encounter Procedures Procedure NamePriorityDate/TimeAssociated DiagnosisCommentsICD PERIOPERATIVE TOVBWWPPAKOPBKnvpzaq54/19/2025 1:15 PM COUPLER Encounter For Checking And Testing Of Cardiac Pacemaker Pulse Generator Battery documented in this encounter Results * ICD PERIOPERATIVE INTERROGATION (07/22/2025 1:15 PM COUPLER)ComponentValueRef RangeTest MethodAnalysis TimePerformed AtPathologist SignatureMurj MRI ConditionalyesFOUNDATION LAB SYSTEMDate Time Interrogation Session [id number] LAB SYSTEMImplantable Pulse Generator Aircraft Inspector MedtronicFOUNDATION LAB SYSTEMImplantable Pulse Generator TypeDefibrillator [facility] SYSTEMImplantable Pulse Generator ModelEvera MRI XT IMAO5W1 [facility] SYSTEMImplantable Pulse Generator Serial [id number] [facility] SYSTEMImplantable Pulse Generator Implant [id number] [facility] SYSTEMBattery Remaining Longevity7.0moFOUNDATION LAB SYSTEM Battery Voltage2.820FOUNDATION LAB SYSTEMBattery LEAD JAVA PROGRAMMER Trigger2.730FOUNDATION LAB SYSTEMBattery StatusMOSFOUNDATION LAB SYSTEMCapacitor Charge Time4.700 [facility] LAB SYSTEMBrady Statistic RA Percent Paced99.88FOUNDATION LAB SYSTEMBrady Statistic RV Percent Paced0.04FOUNDATION LAB SYSTEMAtrial Tachy Statistic AT/AF [place] Percent0.00FOUNDATION LAB SYSTEMLead Channel Impedance Zband440NZYEAHGCUW LAB SYSTEMLead Channel Pacing Threshold Amplitude0.500 FOUNDATION LAB SYSTEMLead Channel Pacing Threshold Pulse Width0.4FNEMOURS FOUNDATION LAB SYSTEMLead Channel Measurements Date and Jujf54790723RPCEXWXVTE LAB SYSTEM Lead Channel Setting Pacing Amplitude1.500FOUNDATION LAB SYSTEMLead Channel Setting Pacing Pulse Width0.4FOUNDATION LAB SYSTEMLead Channel Sensing Intrinsic Amplitude5.000FOUNDATION LAB SYSTEMLead Channel Setting Sensing Sensitivity0.30FOUNDATION LAB SYSTEMLead Channel Impedance Eydux692ZLQYJKGUAN LAB SYSTEMLead Channel Pacing Threshold Amplitude0.750FOUNDATION LAB SYSTEM Lead Channel Pacing Threshold Pulse Width0.4FOUNDATION LAB SYSTEMLead Channel Measurements Date and Vaue31468348DCVOFAIDSK LAB SYSTEMLead Channel Setting Pacing Amplitude2.000FOUNDATION LAB SYSTEMLead Channel Setting Pacing Pulse Width0.4FOUNDATION LAB SYSTEMBrady Setting Mode (NBG Code)AAIR_Or_DDDR FOUNDATION LAB SYSTEMBrady Setting Lower Rate Hpwht83XUHCJLHDBV LAB SYSTEM Cal Setting AT Mode Switch Goty693SVBGSASNUZ LAB SYSTEMBrady Setting Maximum Tracking Xmbc835YWDUFPADDF LAB SYSTEMBrady Setting Maximum Sensor Jkaa182 FOUNDATION LAB SYSTEMTherapy Statistic Recent Shocks Mbovvue8RMCDFRYLOL LAB SYSTEMTherapy Statistic Recent ATP Xcbxzrjol5NFXYOCTNLS LAB SYSTEMMurj RV HV Hqgopghoz48BPQKOEOQWO LAB SYSTEMZone Setting Type CategoryVFFOUNDATION LAB SYSTEMMurj Rate 1188FOUNDATION LAB SYSTEMMurj TherapiesBurst, 35J, 35J, 35J, 35J, 35J, 35JFOUNDATION LAB SYSTEMZone Setting StatusOnFOUNDATION LAB SYSTEM Murj Zone WG5FCEDBIRHZH LAB SYSTEMZone Setting Type CategoryFVTFOUNDATION LAB SYSTEMZone Setting StatusOffFOUNDATION LAB SYSTEMMurj Zone ZP9GXNFCMVUAB LAB SYSTEMZone Setting Type CategoryVTFOUNDATION LAB SYSTEMZone Setting StatusOff FOUNDATION LAB SYSTEMMurj Zone DW7OOLARTJIMT LAB SYSTEMZone Setting Type CategoryVT MonitorFOUNDATION LAB SYSTEMMurj Rate 1150FOUNDATION LAB SYSTEMZone Setting StatusMonitorFOUNDATION LAB SYSTEMMurj Zone CO7GUKQNLXWXZ LAB SYSTEM Implantable Lead ManufacturerMedtronicFOUNDATION LAB SYSTEMImplantable Lead Xpmmg0617 CapsureFix Novus MRIFOUNDATION LAB SYSTEMImplantable Lead Location Right AtriumFOUNDATION LAB SYSTEMImplantable Lead Connection StatusConnected FOUNDATION LAB SYSTEMImplantable Lead Serial InmcgaGSS8061757TFVLIQVYMF LAB SYSTEMImplantable Lead Implant Dxka52020317ISZURRJXOA LAB SYSTEMImplantable Lead Special FunctionLead length: 52.00 cmFOUNDATION LAB SYSTEMImplantable Lead ManufacturerMedtronicFOUNDATION LAB SYSTEMImplantable Lead Yyvza3300 Sprint Quattro Secure SFOUNDATION LAB SYSTEMImplantable Lead LocationRight VentricleFOUNDATION LAB SYSTEMImplantable Lead Connection StatusConnected [facility] SYSTEMImplantable Lead Serial DwftkvFYR324118HCYHZAKUYRK LAB SYSTEMImplantable Lead Implant [id number] LAB SYSTEMImplantable Lead Special FunctionLead length: 58.00 cmFOUNDATION LAB SYSTEMAnatomical RegionLateralityModalityOtherSpecimen (Source)Anatomical Location / Laterality Collection Method / VolumeCollection TimeReceived Time07/22/2025 8:50 PM COUPLER Impressions 07/22/2025 8:50 PM COUPLER Encounter Impression: Title: Post-MRI Check * Post-MRI device interrogation performed. This is MRI conditional system with no abandon leads. * Sensing, impedance and thresholds reviewed and tested * Presenting rhythm: AP/VS at 85 bpm. * Underlying rhythm: silent atrium with intact conduction when tested AAI. Continued to SYSTEMS ACCOUNTANT at 30 bpm. * Confirmed pre-MRI device settings * No observed device anomalies post-MRI * Device reprogrammed: Yes Title: Device Reprogrammed Device reprogrammed, changes are listed below: * Mode: AOO back to AAIR <-> DDDR * LRL changed from 85 to 70 bpm. * Tachy detection turned ON. * RA amplitude changed from 5V/1.0ms back to 1.5V/0.4ms Plan: This patient underwent device interrogation. I agree that the device interrogation was medically indicated to provide appropriate care and continue routine device interrogations as indicated. Routine remote follow up and as needed. Encounter Summary: This report includes 1 transmission that was received on 2025-07-22. Battery, lead impedance, sensing amplitude and pacing threshold data was reviewed. Narrative Procedure Note Steve Mcmahon M.D., M.S. - 07/22/2025 IMPRESSION: Encounter Impression: Title: Post-MRI Check * Post-MRI device interrogation performed. This is MRI conditional systemwith no abandon leads. * Sensing, impedance and thresholds reviewed and tested * Presenting rhythm: AP/VS at 85 bpm. * Underlying rhythm: silent atrium with intact conduction when tested AAI. Continued to SYSTEMS ACCOUNTANT at 30 bpm. * Confirmed pre-MRI device settings * No observed device anomalies post-MRI * Device reprogrammed: Yes Title: Device Reprogrammed Device reprogrammed, changes are listed below: * Mode: AOO back to AAIR <-> DDDR * LRL changed from 85 to 70 bpm. * Tachy detection turned ON. * RA amplitude changed from 5V/1.0ms back to 1.5V/0.4ms Plan: This patient underwent device interrogation. I agree that the device interrogation was medically indicated to provide appropriate care andcontinue routine device interrogations as indicated. Routine remote follow up and as needed. Encounter Summary: This report includes 1 transmission that was receivedon 2025-07-22. Battery, lead impedance, sensing amplitude and pacingthreshold data was reviewed. Authorizing ProviderResult TypeResult StatusAbhiscasimiro CanCV IMPLANTABLE CARDIAC DEVICEFinal Result documented in this encounter Visit Diagnoses Diagnosis Encounter For Checking And Testing Of Cardiac Pacemaker Pulse Generator Battery documented in this encounter Care Teams Team MemberRelationshipSpecialtyStart DateEnd Date Jo Bolaños MPAS, P.A.-C. [address] [place] [phone] PCP - GeneralInternal Nijhjjfi47/10/25documented as of this encounter
--- OUTSIDE RECORDS SUMMARY | 2025-07-22 14:30 | XMS_ITS | Encounter Summary ---
Author Organization [facility] Address [address] [place] [address] Care Team Providers Care Premium Cancellation Clerk Name Role Phone Jo Bolaños P.A.-C. Primary Care Pro vider Reason for Visit * Outpatient (Routine) - ClosedSpecialtyDiagnoses / ProceduresReferred By ContactReferred To Contact Diagnoses Imbalance Non Orthopedic Dizziness Procedures Audio-Vestibular Balance evaluation Christy Luque P.A.-C. [address] [place] [address] Phone: tel: fax: [facility] Referral IDStatusReasonStart DateExpiration DateVisits RequestedVisits [id number]/8/202512/ Encounter Details DateTypeDepartmentCare Team (Latest Contact Info)Sncwcmzkgzl21/19/2025 2:30 PM CSTDiagnostic Department of Otorhinolaryngology in [place], [place] [address] [place] [phone] Christy Luque P.A.-C. [address] [place] [phone] Alexia Duvall Au.D. 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); Sensorineural Hearing Loss Unilateral Right Ear With Restricted Hearing On The Contralateral Side; Imbalance Non Orthopedic; Dizziness; Pain Ear Left Social History Tobacco UseTypesPacks/DayYears UsedDateSmoking Tobacco: NeverPassive Smoke Exposure: YesSmokeless Tobacco: NeverAlcohol UseStandard Drinks/WeekCommentsNot Currently0 (1 standard drink = 0.6 oz pure alcohol)when i was in my 20,s for a couple yrs drinks with ice creamAHC UtilitiesAnswerDate RecordedIn the past 12 months has the [employer], gas, oil, or water [employer] threatened to shut off services in your [...] live12/20/2024CommentsNoSex and Gender InformationValueDate RecordedSex Assigned at CenzmPjizwl09/19/2025 6:27 PM CDT Legal EgbNtkdds51/02/2017 4:56 AM CSTGender GruihusbVimckt97/19/2025 6:27 PM CDT Sexual QqddxkerbldFtsjdqxn36/19/2025 6:27 PM CDTdocumented as of this encounter Procedure Notes * Alexia Duvall Au.D. - 07/22/2025 2:16 PM CST SUBJECTIVE CHIEF COMPLAINT / REASON FOR VISIT Dizziness and imbalance HISTORY OF PRESENT COMPLAINT Sarahy Leigh is a 79-year-old patient who presents for an audiological evaluation prior to vestibular evaluation. She reports a history of a left mastoidectomy 10+ years ago to remove something in her ear. Around this same time, she was experiencing episodic dizziness, which she recalls was a room- spinning sensation that is different from her current symptoms. This dizziness resolved following the surgery. No further detail is available in the chart regarding this procedure, although thereis a note discussing left sided hearing loss in 2006. She recalls being told she may have Meniere'sdisease at this time. Her hearing is not as good in her left ear because of this. She reports frequent left earaches. She denies tinnitus, aural fullness, otorrhea, and history of loud noise exposure. More recently, she has been experiencing new episodes of dizziness/imbalance over the last year. Episodes begin with significant nausea that progresses to non-vertiginous dizziness and imbalance thatcan last for an hour at a time. These episodes most often occur when she is upright and moving suchas when in a grocery store. When present she has to stop what she is doing and go home to rest. Forfurther history regarding these episodes, please refer to her forthcoming vestibular evaluation note. OBJECTIVE See Audiological Evaluation Form. ASSESSMENT/PLAN ?? Right ear: normal hearing sensitivity 250-500 Hz and 9075-5616 Hz with mild sensorineural hearing loss at 1000 Hz and 8428-2335 Hz sloping to moderately severe hearing loss at 8000 Hz, ?? Left ear: moderately severe sloping to profound largely sensorineural hearing loss (conductive components at 250 and 500 Hz). ?? Word recognition ability was assessed using recorded isophoneme stimuli, 20- word lists, and resulted in scores of 100% in the right ear and 40% (70% phonemes) in the left ear. ?? Tympanometry indicates very reduced compliance with normal pressure and ear canal volume (Type As) in both ears. ?? Acoustic reflexes were present at elevated levels in the right ipsilateral condition and largelyabsent in all other conditions, a pattern consistent with her symptoms of left sided mastoidectomy. CARE PLAN ?? Continue with vestibular/balance evaluation in a few weeks as scheduled. ?? Consider following up with ENT regarding asymmetric hearing loss and intermittent left ear pain given her history of previous left ear surgery. ?? She overall hears well and does not currently perceive enough communication difficulty to warrant further intervention (amplification) at this time. ?? Re-evaluate hearing in 1 year to establish stability of hearing loss, sooner if concerns arise. LEADER documented in this encounter Plan of Treatment DateTypeDepartmentCare Team (Latest Contact Info)Jtptsieofgu42/05/2026 9:30 AM CSTDiagnostic Department of Otorhinolaryngology in [place], [place] [address] [place] [address] Christy Luque P.A.-CMiquel [address] [place] [address] Addy Burgos Au.D. [address] [place] [address] 09/07/2025 9:50 AM CSTAppointment Department of Laboratory Medicine in [place], [place] [address] [place] [phone] Jo Bolaños MPAS, P.A.-C. [address] [place] [phone] 09/09/2025 3:30 PM CSTOffice Visit Department of Community Internal Medicine in [place], [place] [address] [place] [address] Jo Bolaños MPAS, P.A.-CMiquel [address] [place] [address] documented as of this encounter Procedures Procedure NamePriorityDate/TimeAssociated DiagnosisCommentsAUDIO-VESTIBULAR BALANCE XFUECDCZBZEzdkjtt37/19/2025 12:00 AM LEAN LEADER Imbalance Non Orthopedic Dizziness documented in this encounter Results * Audio-Vestibular Balance evaluation (07/22/2025 12:00 AM LEAN LEADER)Specimen (Source) Anatomical Location / LateralityCollection Method / VolumeCollection Time Received Time07/22/2025 Narrative Authorizing ProviderResult TypeResult StatusChristy Luque P.A.-C.ENT ORDERABLES Final Result documented in this encounter Visit Diagnoses Diagnosis 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 [address] [place] [phone] PCP - GeneralInternal Dqlbnarn94/10/25documented as of this encounter
[2025-08-02] VITALS (13 sets, daily range): BP systolic 197–215; BP diastolic 96–115; PULSE 69–73; RESP 10–42; TEMP 36.8; O2SAT 95–100; BMI 33.6
--- OUTSIDE RECORDS SUMMARY | 2025-08-02 19:00 | XMS_ITS | Encounter Summary ---
Author Organization [facility] Address [address] [place] [address] Care Team Providers Care Title Curator Name Role Phone Jo Bolaños, P.A.-C. Primary Care Pro vider Encounter Details DateTypeDepartmentCare Team (Latest Contact Info)Zlgaxynmsfz88/03/2025Clinical Communication Department of Community Internal Medicine in [place], [place] [address] [place] [phone] Jo Bolaños MPAS, P.A.-C. [address] [place] [address] Social History Tobacco UseTypesPacks/DayYears UsedDateSmoking Tobacco: NeverPassive [...] live12/20/2024CommentsNoSex and Gender InformationValueDate RecordedSex Assigned at BxoqaDzmqsu42/19/2025 6:27 PM CDT Legal RdmIibmgr21/02/2017 4:56 AM CSTGender QoyanlqzIqfypu00/19/2025 6:27 PM CDT Sexual JyegpvomuzuBveytdaq57/19/2025 6:27 PM CDTdocumented as of this encounter Miscellaneous Notes * Telephone Encounter - Lila Trivedi L.P.N. - 07/07/2025 9:49 AM SEED CORE OPERATOR Called [facility] pharmacy (spoke with Kadie) to notify them of the following: She reported to me at our visit 06/10/2025 that she was taking this daily despite the fact that herprescription read every other day so I adjusted prescription to read daily. Instructions for glipizide should read 5 mg daily before morning meal. Pharmacy needing an updated script CORE OPERATOR documented in this encounter Plan of Treatment DateTypeDepartmentCare Team (Latest Contact Info)Cybtsbsmkzg20/05/2026 9:30 AM CSTDiagnostic Department of Otorhinolaryngology in [place], [place] [address] [place] [phone] Christy Luque P.A.-C. [address] [place] [address] Addy Burgos Au.D. [address] [place] [phone] 09/07/2025 9:50 AM CSTAppointment Department of Laboratory Medicine in [place], [place] [address] [facility] [place] [phone] Jo Bolaños MPAS, P.A.-C. [address] [facility] [place] [facility] [place] [phone] 09/09/2025 3:30 PM CSTOffice Visit Department of Community Internal Medicine in [place], [place] [address] [facility] [place] [address] Jo Bolaños MPAS, P.A.-C. [address] [facility] [place] [place] [phone] documented as of this encounter Visit Diagnoses Not on filedocumented in this encounter Care Teams Team MemberRelationshipSpecialtyStart DateEnd Date Jo Bolaños MPAS, P.A.-C. [address] [facility] [place] [place] [phone] PCP - GeneralInternal Tepfyqbn88/10/25documented as of this encounter
--- OUTSIDE RECORDS SUMMARY | 2025-08-02 19:00 | XMS_ITS | Encounter Summary ---
Author Organization [facility] Address [address] [place] [address] Care Team Providers Care Big Machine Consultant Name Role Phone Jo Bolaños, P.A.-C. Primary Care Pro vider Encounter Details DateTypeDepartmentCare Team (Latest Contact Info)Kodkynckqrx03/10/2025Results Follow-Up Department of Community Internal Medicine in [place], [place] [address] [place] [address] Jo Bolaños MPAS, P.A.-C. [address] [place] [address] Albumin, Random, Urine, Basic Metabolic Panel Social History Tobacco UseTypesPacks/DayYears UsedDateSmoking Tobacco: NeverPassive Smoke Exposure: YesSmokeless Tobacco: NeverAlcohol UseStandard Drinks/WeekCommentsNot Currently0 (1 standard drink = 0.6 oz pure alcohol)when i was in my 20,s for a couple yrs drinks with ice creamAHC UtilitiesAnswerDate RecordedIn the past 12 months has the electric, gas, oil, or water [employer] threatened to shut off services in your [...] live12/20/2024CommentsNoSex and Gender InformationValueDate RecordedSex Assigned at TniccAiifok63/19/2025 6:27 PM CDT Legal ChfZrttpi75/02/2017 4:56 AM CSTGender GfjtwqbtXzrfhb79/19/2025 6:27 PM CDT Sexual DbswgtuvdxkVwqpuukf06/19/2025 6:27 PM CDTdocumented as of this encounter Plan of Treatment DateTypeDepartmentCare Team (Latest Contact Info)Jktjzgytmua36/05/2026 9:30 AM CSTDiagnostic Department of Otorhinolaryngology in [place], [place] [address] [place] [address] Christy Luque P.A.-CMiquel [address] [place] [phone] Addy Burgos Au.D. [address] [place] [address] 09/07/2025 9:50 AM CSTAppointment Department of Laboratory Medicine in [address] [phone] Jo Bolaños MPAS, P.A.-C. [address] [place] [phone] 09/09/2025 3:30 PM CSTOffice Visit Department of Community Internal Medicine in [address] [phone] Jo Bolaños MPAS, P.A.-C. [address] [place] [address] NameTypePriorityAssociated DiagnosesOrder ScheduleAlbumin, Random, UrineLab Routine Diabetes Mellitus Type 2 (HCC) Expected: 06/13/2026, Expires: 09/13/2026documented as of this encounter Visit Diagnoses Diagnosis Diabetes Mellitus Type 2 (HCC)- Primary documented in this encounter Care Teams Team MemberRelationshipSpecialtyStart DateEnd Date Jo Bolaños MPAS, P.A.-C. [address] [place] [address] PCP - GeneralInternal Geacgwsa45/10/25documented as of this encounter
--- OUTSIDE RECORDS SUMMARY | 2025-08-02 19:00 | XMS_ITS | Encounter Summary ---
Author Organization [facility] Address [address] [place] [address] Care Team Providers Care Racehorse Trainer Name Role Phone Jo Bolaños, P.A.-C. Primary Care Pro vider Reason for Visit * ReasonOnset DateCommentsMed Prnmgnul90/17/2025 Encounter Details DateTypeDepartmentCare Team (Latest Contact Info)Zwxeltmoril47/17/2025linical Communication Department of Community Internal Medicine in [place], [place] [address] [place] [address] Jo Bolaños MPAS, P.A.-C. [address] [place] [address] Med Question Social History Tobacco UseTypesPacks/DayYears UsedDateSmoking Tobacco: NeverPassive Smoke Exposure: YesSmokeless Tobacco: NeverAlcohol UseStandard Drinks/WeekCommentsNot Currently0 (1 standard drink = 0.6 oz pure alcohol)when i was in my 20,s for a couple yrs drinks with ice creamAHC UtilitiesAnswerDate RecordedIn the past 12 months has the [employer], gas, oil, or water [employer] threatened to shut off services in your [...] live12/20/2024CommentsNoSex and Gender InformationValueDate RecordedSex Assigned at XamvoXtkgwo71/19/2025 6:27 PM CDT Legal WbwTfhlto65/02/2017 4:56 AM CSTGender ZibsfezzRtunlh82/19/2025 6:27 PM CDT Sexual YvwcycinqzoHdlztcsk01/19/2025 6:27 PM CDTdocumented as of this encounter Miscellaneous Notes * Telephone Encounter - Sarahy Bernard R.N. - 06/20/2025 2:56 PM CST SUBJECTIVE CHIEF COMPLAINT / REASON FOR CALL Med Question PLAN The following information was provided: I called and spoke to Sarahy, she tells me she was feeling fine Wednesday 06/13- 06/15. Than she started feeling pressure in her bladder, on her right side of abdomen and in her back, Sarahy is having frequency and urgency she is timothy an adult undergarment with a pad in it as she has had incontinence. Denies fever, no bleeding or dark colored urine and no foul odor noted. Sarahy said the general counselor started her on Lasix 20 mg a day and she feels this is making her UTI symptoms worse. Sarahy had a UTI last on 06/02/25. I transferred Sarahy to [facility] to get the first available apt. Information/Education: patient/caller able to teach back The following references were used: nursing clinical judgement GATIONIST documented in this encounter Plan of Treatment DateTypeDepartmentCare Team (Latest Contact Info)Phergugjutc97/05/2026 9:30 AM CSTDiagnostic Department of Otorhinolaryngology in [place], [place] [address] [place] [address] Christy Luque P.A.-C. [address] [place] [address] Addy Burgos Au.D. [address] [place] [address] 09/07/2025 9:50 AM CSTAppointment Department of Laboratory Medicine in [place], [place] [address] [place] [phone] Jo Bolaños MPAS, P.A.-C. [address] [place] [phone] 09/09/2025 3:30 PM CSTOffice Visit Department of Community Internal Medicine in [place], [place] [address] [place] [phone] Jo Bolaños MPAS, P.A.-C. [address] [place] [address] documented as of this encounter Visit Diagnoses Not on filedocumented in this encounter Care Teams Team MemberRelationshipSpecialtyStart DateEnd Date Jo Bolaños MPAS, P.A.-C. [address] [place] [phone] PCP - GeneralInternal Yepumigt17/10/25documented as of this encounter
--- OUTSIDE RECORDS SUMMARY | 2025-08-02 19:00 | XMS_ITS | Clinical Summary ---
Author Organization [employer] [facility] Address [address] [place] [address] Care Team Providers Care Training Project Manager Name Role Phone Jo Bolaños PA-C Primary Care Provider [phone] Allergies Active AllergyReactionsCriticalityNoted DateCommentsAmlodipineDizziness 05/17/20218714BjmebyzfnsgmoHnfslai66/03/2023 Medications MedicationSigDispense QuantityRefillsLast FilledStart DateEnd DateStatus ASPIRIN 81 MG TAB, DELAYED RELEASE take 1 tablet (81 mg) by oral route once qpxin45808/11/2006ctive albuterol HFA (PROAIR HFA) 90 mcg/actuation inhaler Indications:WheezingInhale 2 Puffs by mouth every 4 hours if needed. 18 g 121 9:23 AM CDT1Active blood sugar diagnostic (Contour Next Test Strips) strip Indications:Controlled type 2 diabetes mellitus with complication, without long- term current use of insulin (HC)Dispense meter, test strips, lancets covered by pt ins. E11.9 IDDM type II - Test 2 times/day. 300 Each ctive nitroglycerin (NITROSTAT) 0.4 mg sublingual tablet Indications:Stable anginaPlace 1 Tablet (0.4 mg) under the tongue every 5 minutes if needed for Chest Pain. 25 Tablet ctive ondansetron (ZOFRAN ODT) 8 mg disintegrating tablet Indications:Nausea and vomiting, unspecified vomiting type,Diarrhea, unspecified typePlace 1 Tablet (8 mg) on the tongue every 8 hours if needed for Nausea/Vomiting. 15 Tablet 4Active omeprazole (PRILOSEC) 40 mg Delayed-Release capsule Indications:Gastroesophageal reflux disease with esophagitis without hemorrhage TAKE ONE CAPSULE BY MOUTH ONCE DAILY BEFORE A MEAL 90 Capsule 5Active glipiZIDE (GLUCOTROL) 5 mg tablet Indications:Type 2 diabetes mellitus without complication, without long-term current use of insulin (HC)Take 1 Tablet (5 mg) by mouth once daily before a meal. 90 Tablet 5Active blood-glucose meter Indications:Type 2 diabetes mellitus without complication, without long-term current use of insulin (HC)As directed. Dispense meter covered by pts insurance. 1 Each 5Active Blood-Glucose Meter Indications:Type 2 diabetes mellitus without complication, without long-term current use of insulin (HC)As directed. Dispense meter, test strips, lancets covered by pt ins. E11.9 IDDM type II - Test 2 times/day. 1 Each 5Active blood sugar diagnostic (Blood Glucose Test) strip Indications:Type 2 diabetes mellitus without complication, without long-term current use of insulin (HC)Dispense blood glucose test strips covered by pts insurance. Test 2 times per day. 100 Each 5Active lancets Indications:Type 2 diabetes mellitus without complication, without long-term current use of insulin (HC)As directed. Test 2 times per day. 100 Each 5Active Diabetic Shoe Indications:Type 2 diabetes mellitus without complication, without long-term current use of insulin (HC)Dispense one pair of diabetic shoes. 1 Each 5Active allopurinoL 100 mg tablet Indications:History of goutTAKE TWO TABLETS BY MOUTH EVERY DAY 180 Tablet 5Active carvediloL 12.5 mg tablet Indications:CAD in [place] artery,Essential hypertension with goal blood pressure less than 140/90TAKE ONE TABLET BY MOUTH TWICE A DAY WITH MEALS 180 Tablet 5Active furosemide 20 mg tablet Indications:Congestive heart failure, unspecified HF chronicity, unspecified heart failure type (HC)Take 1 Tablet (20 mg) by mouth once daily in the morning. 5Active lisinopriL 10 mg tablet Indications:Essential hypertensionTake 1 Tablet (10 mg) by mouth two times daily. 180 Tablet 5Active acetaminophen SR (TYLENOL ARTHRITIS) 650 mg Extended-Release tablet Take 1,300 mg by mouth.Active diphenhydrAMINE-acetaminophen 25-500 mg (TYLENOL PM) 25-500 mg tablet Take 2 Tablets by mouth at bedtime.Active loperamide (IMODIUM) 2 mg capsule TAKE ONE CAPSULE BY MOUTH EVERY 4 HOURS NEEDED FOR LOOSE STOOL. ADMINISTER AFTER EACH LOOSE STOOL UNTIL SYMPTOMS CONTROLLED. DO NOT EXCEEActive isosorbide mononitrate SR (IMDUR) 120 mg Sustained-Release tablet Indications:Coronary artery disease due to lipid rich plaqueTAKE ONE TABLET BY MOUTH EVERY DAY BEFORE MEALS. 90 Tablet 5Active rosuvastatin (CRESTOR) 10 mg tablet Indications:Coronary artery disease due to lipid rich plaqueTake 1 Tablet (10 mg) by mouth at bedtime. 90 Tablet 5Active Active Problems ProblemNoted DateDiagnosed DateStage 4 chronic kidney fbvaolb6512/25/2024Diabetic peripheral paqjrkbujl08/23/2023Congestive heart npcryqo5812/13/2021epression, tpyspoasp36/12/2022Dyspnea/Fatigue/Decrese in vqyuncj45/04/2021S/P ICD (internal cardiac defibrillator) jqxwaxhwl05/04/2021 Overview (05/07/2021): - placed due to VT Controlled type 2 diabetes mellitus with complication, without long-term current use of jhsbtvg2808/31/2019Ruled out for myocardial ucobaavbfs66/07/2018Type 2 diabetes nctizrjg02/22/2017HTN (hypertension)03/16/2010Gout, unspecified 11/21/2006SHD (arteriosclerotic heart disease) Overview (05/07/2021): -Angiogram 05/18/14: [employer] pLCx, otherwise mild luminal irregularities -Attempted PCI of [employer] pLCx 05/19/14, unsuccessful -NSTEMI 08/01/14 -Coronary angiography 08/01/14: [employer] pLCx, unchanged. Otherwise mild luminal irregularities. Attempted PCI of [employer] unsuccessful with both antegrade and retrograde techniques. - angiogram 02/2016 ?? The LMCA is free of significant disease. ?? 30% stenosis in the Proximal LAD. 50% stenosis in the 1st Diagonal ?? 100% stenosis in the Proximal Circumflex ?? The RCA is dominant and has mild luminal irregularities. - NM Stress Test 04/23/2021 1. Medium sized area of moderate ischemia in the anterior/anterolateral wall of the left ventricle. 2. Small area of mild to moderate ischemia identified in the apical inferior wall of the left ventricle. 3. Medium sized mid and basal inferolateral wall infarct is identified. 4. Left ventricular ejection fraction is within normal limits at 63 percent. There is mild hypokinesis in the inferolateral wall of the base. 5. The areas of ischemia have increased since 2013. 6. Findings discussed with the ordering physician. 04/23/2021 @ 1500 - angiogram 05/07/2021 CKD (chronic kidney disease) stage 3, GFR 30-59 ml/minGastritis Resolved Problems ProblemNoted DateDiagnosed DateResolved DateAngina pectoris, atgdgmd8508/31/2019 10/03/20234331Aakxau37UTI (urinary tract infection)03/29/2017 04/06/2020Non-intractable vomiting with odhhlm51Shaking chills Paroxysmal SVT (supraventricular tachycardia)08/25/2016 4867Xbatfocxcef87/22/Hyperkalemia, mild08/25/ Nonsustained ventricular vwzxttsyhub08/22/NSVT (nonsustained ventricular tachycardia)02/01/Angina ibaoem37/29/AKI (acute kidney injury)LeukocytosisACP (advance care planning)Elevated fpafulbg78 Chest painUnstable xjzueb70Abnormal cardiovascular stress test05/18/Robina Care Zqwafnns42/09/2010 07/22/2011 Overview (03/12/2010): This patient, PCP and Care Guide have signed a letter agreeing on a set of goals for diabetes, hypertension and/or CHF. Please look for Angelita Care Goal Contract in Chart Review/ Letters and support this effort. Please direct questions to Care Guide Ana Lilia Cobb Phone number [phone] Benign neoplasm of parathyroid gland11/21/Near bobsnrv3903/28/2017 Encounters DateTypeDepartmentCare SxisHwkaszyaovi76/15/2025Telephone [facility] [address] [facility] [address] [place] [phone] Laura Jack RN Device Check (Transfer of care)07/01/2025Refill [facility] [address] [place] [address] Mary Garcia MD Refill Request (Isosorbide Mononitrate Sr)06/14/2025Refill [facility] [address] [facility] [address] [place] [address] Jony Petersen MD Refill Request (Rosuvastatin)06/05/2025Refill [address] [phone] Anthony Ortiz MD Refill Request (Allopurinol)from Last 3 Months Immunizations ImmunizationAdministration DatesNext DueCOVID-19 VACCINE SPIKEVAX (MODERNA 50MCG/0.5ML) 12YO+ PFS4COVID-19 vaccine (Moderna 100mcg/0.5mL) PF, MDV 09/12/2020,1COVID-19 vaccine (LiveOffice-BioNTech 30mcg/0.3mL) 12YO+ BIVALENT PF, MDV12COVID-19 vaccine (Pfizer-BioNTech 30mcg/0.3mL) PF, MDV 07/03/2021Influenza, High-dose Fvooxcqfcgf06/16/2019,05/12/2017,06/26/2016, 05/25/2015,05/17/2014Influenza, High-dose Quadrivalent Fuxyrnyaarf63/14/2022, 05/24/2021,05/25/2020Influenza, IIV3 (Age 6-35 mos)04/25/2011Influenza, IIV3 (Age >=3 years)05/13/2013,04/24/2012,04/25/2011,05/08/2010,05/25/2009,06/11/2007 ,06/02/2006,06/01/2004,08/05/2003Influenza, Inactivated AIIV4 (Age 65+ Years) Preserv Free06/20/2023Influenza, Inactivated IIV3 (Age 65+ Years) Preserv Free 06/10/2024,05/11/2018Pneumococcal Poly,23-Valent (Pneumovax)12/27/2011, 09/27/2008Pneumococcal conj 13-Valent (Prevnar 13)06/26/2016Td (Age >=7 Years) 10/09/2004Tdap109/30/2016Zoster (Zostavax-ZVL, live)08/11/2012 Family History Medical HistoryRelationNameCommentsCancer-colonBrother 4GI DiseaseBrother 5COLON POLYPSAlcohol/DrugBrother 6DiabetesDaughter 4ALL 3 HAD GESTATIONAL DIABETESHeart DiseaseFatherMIDiabetesMotherHeart DiseaseMotherStrokeMotherAnesthesia ProblemNo Family HistoryClotting disorderNo Family HistoryRelationNameStatusComments Brother 1DeceasedBrother 2DeceasedBrother 3AliveBrother 4Brother 5Brother 6 Daughter 1AliveDaughter 2AliveDaughter 3AliveDaughter 4FatherDeceasedMaternal GrandfatherDeceasedMaternal GrandmotherDeceasedMotherDeceasedPaternal GrandfatherDeceasedPaternal GrandmotherDeceased Social History Tobacco UseTypesPacks/DayYears UsedDateSmoking Tobacco: NeverPassive Smoke Exposure: NeverSmokeless Tobacco: Never Tobacco Cessation:Counseling Given: Yes Alcohol UseStandard Drinks/WeekCommentsNo0 (1 standard drink = 0.6 oz pure alcohol)PHQ-2AnswerDate RecordedPHQ-2 TOTAL SEKYL299Social Connections AnswerDate RecordedFrequency of Communication with Friends and Gpdxvm052 Financial Resource StrainAnswerDate RecordedDifficulty of Paying Living Expenses ifficulty of Paying Living ExpensesNot on file12/05/2021Food InsecurityAnswerDate RecordedWorried About Running Out of Food in the Last Year1 12/05/2021Transportation NeedsAnswerDate RecordedLack of Transportation (Medical)Housing StabilityAnswerDate RecordedUnable to Pay for Housing in the Last Kfwu775Interpersonal SafetyAnswerDate RecordedAre you being hit, kicked, pushed or yelled at (see row info)?No03/27/2025 Interpersonal Safety Abuse 12 - 18Not on file03/27/2025Interpersonal Safety Ambulatory VulnerabilityNot on file03/27/2025CommentsNoSex and Gender InformationValueDate RecordedSex Assigned at BirthNot on fileLegal SexFemale 08/17/2012 5:22 AM CSTGender IdentityNot on fileSexual OrientationNot on file OccupationIndustryJob Start DateJob End DateLAURA BECKWITH SCHOOLNot on fileNot on fileNot on file Obstetrics History GravidaParaTermPretermABIABSABEctopicMultipleLivingLive Mneand61766HerqKymnfjfZZ Total LaborLabor/2nd/6tcXijtplSiyJsunLvocGMTOvxU1X3RtyhZjblOCJABALieuBwbvZuxu Last Filed Vital Signs Vital SignReadingTime TakenCommentsBlood Tvcvilwe268/80003/27/2025 4:20 PM CDT Xzzja5756 4:20 PM FYMQbtphohcifu44.4 ??C (97.6 ??F)03/27/2025 11:58 AM CDTRespiratory Vsur8927 11:58 AM CDTOxygen Dousqyqwfh99%03/27/2025 4:20 PM CDTInhaled Oxygen Concentration--Rnivzb85.6 kg (215 lb 2.7 oz)03/27/2025 11:58 AM VDPKrgqij344.6 cm (5' 6)03/27/2025 12:06 PM CDTBody Mass Index34.73 03/27/2025 11:58 AM CDT Plan of Treatment Health MaintenanceDue DateLast DoneCommentsZoster (shingles) series for age 50+ (2 of 3)10/06/201201/03/2013RSV vaccine for adults or (1 - 1-dose 75+ series)2020Medicare Wellness for age 65+, 02/06/2021, 08/31/2019Influenza Vaccine (#1)/02/2024, 06/20/2023, 05/19/2019, Additional history existsBMI (ht and wt on same day) for age 18+08/31/2025 08/31/2024, 07/24/2023, 12/06/2022, Additional history existsCOVID-19 vaccine series (2024- season)6108/31/2024, 06/10/2024, 05/27/2022, Additional history existsDepression screening for age 12+6001/26/2025, 09/14/2024, 09/14/2024, Additional history existsTetanus osayfeo1507/30/2027 07/30/2017, 10/09/2004Pneumococcal series for age 50+Ypqldnqxc17/23/2016, 12/27/2011, 09/27/2008Hepatitis C screening for age 18-17Egqrimgdq16/06/2021 DEXA/DXA scan for age 65+Kyjudwmhd46/02/2021Hepatitis B series for 19+Aged OutNo longer eligible based on patient's age to complete this topic Goals GoalPatient Goal TypeAssociated ProblemsRecent ProgressPatient-Stated?Author BLOOD PRESSURE - MAINTAINS BP less than 140/90 Blood PressureNoAbdirashid Alcantara MD Medical Devices ImplantedTypeAreaManufacturerDevice IdentifierShelf Expiration DateModel / Serial / LotMedtronic Interstim Temporary Implant Implanted:Qty: 1 [facility]06[facility] HvedrqDkowwgenh02/01/[id number] / / [id number] Interstim Basic Evaluation Lead Implanted:Qty: 1 on 07/06/2020 [facility]: CvadqkWjtjwirmg92/08/[id number] / / [id number] Kit 2.16mm Spacing 28cm Length Interstim - [id number] Implanted:Qty: 1 on 09/07/2020 [facility]: SacrumMedtronic Pain Jitrioe28/15/[id number] / / [id number] Rechargable Interstim Micro Surescan - [id number] Implanted:Qty: 1 on 09/07/2020 [facility]: SacrumMedtronic Pain Vrbfpvy94/14/[id number] / / [id number] Kit 2.16mm Spacing 28cm Length Interstim - [id number] Implanted:Qty: 1 on 03/22/2021 [facility]: SpineMedtronic Pain Aiqyikj48/08/[id number] / / [id number] Procedures Procedure NamePriorityDate/TimeAssociated DiagnosisCommentsXR DXA BONE DENSITY 2 SITES SCXSUXgqfmzi63/02/2021 1:55 PM [facility]LE WMS CONSULTANT Postmenopausal ANTI VDVKirfezr61/06/2021 10:53 AM CDT Encounter for hepatitis C screening test for low risk patient from Last 3 Months or Most Recently Relevant to Health Maintenance Results * XR DXA BONE DENSITY 2 SITES AXIAL [35478.1] (07/05/2021 1:55 PM ORACLE WMS CONSULTANT)Anatomical RegionLateralityModalitySpine, HIPS, HIPL, HIPRComputed RadiographySpecimen (Source)Anatomical Location / LateralityCollection Method / VolumeCollection TimeReceived Time Impressions 07/05/2021 5:21 PM ORACLE WMS CONSULTANT Normal bone density. RECOMMENDATIONS: The National Osteoporosis Foundation recommends pharmacologic treatment for patients with T-scores of -2.5 or less, patients with prior history of fragility fractures, or patients with 10-year probability of greater than 3% at hips or greater than 20% of suffering major osteoporotic fractures. Recommend continued optimization of calcium and vitamin D intake through dietary means and/or supplementation and regular exercise. Repeat scan recommended in 5-7 years. Narrative 07/05/2021 5:21 PM ORACLE WMS CONSULTANT For Patients: Results are automatically released to your [employer] [facility]) account once available, in compliance with federal regulations. This means that you may see your results before your provider has had a chance to review them. Please allow 2-3 business days for your provider to comment on the results. XR DXA Bone Mineral Density (BMD) EXAM LOCATION: [address] [address] PATIENT NAME: Sarahy Leigh DATE OF : 1945 EXAM DATE: 07/05/2021 REQUESTING PROVIDER: Anthony Ortiz MD GENDER AT : female HEIGHT: 5' 4.5 (07/03/2021) WEIGHT: ??210 lb 14.4 oz (07/03/2021) MENOPAUSAL STATUS: Postmenopausal RACE/ETHNICITY: White RISK FACTORS: Hyperparathyroidism, Menopause < Age 40 and White Race CURRENT MEDICATION FOR BONE LOSS: NONE INDICATION: Postmenopausal, primary hyperparathyroidism COMPARISON DATE(S): None DXA scans are compared to prior studies for a patient only when the two (or more) studies were performed on the same scanner. It is not possible to compare data generated on one scanner to data from another because there are not standards in DXA equipment. This applies even if the two scanners are made by the same crm specialist. PROCEDURE: Dual-energy x-ray absorptiometry performed with routine technique. Reporting is completed in the form of a T-score. The T-score represents the standard deviation from peak bone mass based on young healthy adult. A Z-score is used for diagnosis in premenopausal women, and for men under the age of 50. FINDINGS: RESULT LUMBAR SPINE L1 - L4 BMD: 1.278 g/cm2 T-Score: + 0.8 RESULTS FEMUR Left femoral neck BMD: 0.950 g/cm2 T-Score: - 0.6 Right femoral neck BMD: 0.902 g/cm2 T-Score: - 1.0 Left hip BMD: 1.028 g/cm2 T-Score: + 0.2 Z-Score: + 1.2 Right hip BMD: 0.993 g/cm2 T-Score: - 0.1 Z-Score: + 0.9 RESULT FOREARM Left Forearm distal radius BMD: 0.865 g/cm2 T-Score: - 0.2 WHO criteria: Normal: T-score at or above -1 SD Osteopenia: T-score between -1.1 and -2.4 SD Osteoporosis: T-score at or below -2.5 SD Authorizing ProviderResult TypeResult StatusTerence Pankaj Ortiz MDDEXAFinal Result * ANTI HCV (02/06/2021 10:53 AM CDT)ComponentValueRef RangeTest MethodAnalysis TimePerformed AtPathologist SignatureHEPATITIS C ANTIBODYNon-Reactive Non-Vxlpbzxb90/06/2021 8:23 PM CDCARIL[facility] Comment:Antibodies to HCV not detected; does not exclude the possibility of exposure to HCV.Specimen (Source)Anatomical Location / LateralityCollection Method / VolumeCollection TimeReceived TimeBloodBLOOD SPECIMEN / Unknown Venipuncture / Qmgtvua9602/06/2021 10:53 AM CDT02/06/2021 10:55 AM CDT Narrative Authorizing ProviderResult TypeResult StatusTerence Pankaj Ortiz MDSEND OUTS Final ResultPerforming OrganizationAddressCity/State/ZIP CodePhone Number [facility] [address] [place] [address], from Last 3 Months or Most Recently Relevant to Health Maintenance Insurance * Guarantor: Sarahy Leigh TypeRelation to PatientDate of BirthPhone Billing AddressPersonal/KesxlaKmju64/07/1946 [address] [place] [address] [place] [address] * Guarantor: Sarahy Leigh Clair TypeRelation to PatientDate of BirthPhone Billing AddressPersonal/MvbqxgNrjl57/07/1946 [address] [place] [address] * Guarantor: Wero Leigh TypeRelation to PatientDate of BirthPhone Billing AddressK[facility]/QxtmxiWdqhqk67/08/1944 ([place]) [address], [place] [address] [place] [address] [place] [address] Advance Directives * Full Code (Latest Code Status on File) Date ActivatedDate JhdwsrybngwNqfaixdw84/4/2021 9:59 AM05/07/2021 9:41 PMQuestion AnswerCommentsCode Status Discussion:* Discussed * Full Code Date ActivatedDate InactivatedComments03/22/2021 11:08 AM03/22/2021 6:11 PM QuestionAnswerCommentsCode Status Discussion:* Discussed * Full Code Date ActivatedDate InactivatedComments09/07/2020 6:58 AM09/07/2020 1:26 PMQuestion AnswerCommentsCode Status Discussion:* Discussed * Full Code Date ActivatedDate VihjficundpYolydasm78/3/2020 7:32 AM07/06/2020 1:28 PMQuestion AnswerCommentsCode Status Discussion:* Discussed * Full Code Date ActivatedDate InactivatedComments04/13/2019 6:47 AM04/13/2019 11:08 AM QuestionAnswerCommentsCode Status Discussion:* Discussed Care Teams Team MemberRelationshipSpecialtyStart DateEnd Date Jo Bolaños PA-C [address] [place] [address] [address] [place] [place] [phone] PCP - GeneralPhysician Assistant03/27/25
--- OUTSIDE RECORDS SUMMARY | 2025-08-02 19:00 | XMS_ITS | Encounter Summary ---
Author Organization [facility] Address [address] [place] [address] Care Team Providers Care Refueling Rampman Name Role Phone Jo Bolaños, P.A.-C. Primary Care Pro vider Encounter Details DateTypeDepartmentCare Team (Latest Contact Info)Rxbexnexsdi50/15/2025Clinical Communication Department of Community Internal Medicine in [place], [place] [address] [place] [phone] Jo Bolaños MPAS, P.A.-C. [address] [place] [address] Social History Tobacco UseTypesPacks/DayYears UsedDateSmoking [...] live12/20/2024CommentsNoSex and Gender InformationValueDate RecordedSex Assigned at ZgmppXfyocx07/19/2025 6:27 PM CDT Legal PwtRycniw61/02/2017 4:56 AM CSTGender JuwovyybVrapdx21/19/2025 6:27 PM CDT Sexual OkmhuzlufvgSzubspha74/19/2025 6:27 PM CDTdocumented as of this encounter Plan of Treatment DateTypeDepartmentCare Team (Latest Contact Info)Hpnczmfiabj31/05/2026 9:30 AM CSTDiagnostic Department of Otorhinolaryngology in [place], [place] [address] [place] [address] Christy Luque P.A.-CMiquel [address] [place] [address] Addy Burgos Au.D. [address] [place] [address] 09/07/2025 9:50 AM CSTAppointment Department of Laboratory Medicine in [place], [place] [address] [place] [phone] Jo Bolaños MPAS, P.A.-CMiquel [address] [place] [phone] 09/09/2025 3:30 PM CSTOffice Visit Department of Community Internal Medicine in [place], [place] [address] [place] [phone] Jo Bolaños MPAS, P.A.-C. [address] [facility] [place] [address] documented as of this encounter Visit Diagnoses Not on filedocumented in this encounter Care Teams Team MemberRelationshipSpecialtyStart DateEnd Date Jo Bolaños MPAS, P.A.-C. [address] [facility] [place] [address] PCP - GeneralInternal Iteseuuv34/10/25documented as of this encounter
--- OUTSIDE RECORDS SUMMARY | 2025-08-02 19:00 | XMS_ITS | Encounter Summary ---
Author Organization [facility] Address [address] [place] [address] Care Team Providers Care Income Tax Advisor Name Role Phone Jo Bolaños, P.A.-C. Primary Care Pro vider Reason for Visit * ReasonCommentsMed Refill Encounter Details DateTypeDepartmentCare Team (Latest Contact Info)Moxyrxvarrl25/09/2025Refill Department of Community Internal Medicine in [place], [place] [address] [place] [address] Jo Bolaños MPAS, P.A.-C. [address] [place] [address] Med Refill Social History Tobacco UseTypesPacks/DayYears UsedDateSmoking Tobacco: NeverPassive [...] live12/20/2024CommentsNoSex and Gender InformationValueDate RecordedSex Assigned at GyfeuUdmtfg66/19/2025 6:27 PM CDT Legal KhlUjiyag65/02/2017 4:56 AM CSTGender AwgpnugpWeznae00/19/2025 6:27 PM CDT Sexual RunwgprqiseDbjnogvt01/19/2025 6:27 PM CDTdocumented as of this encounter Miscellaneous Notes * Telephone Encounter - Jeff Toribio - 07/15/2025 8:14 AM CST Needs Review: Med Refill Team is unable to forward request to provider. Discrepancy; Patient Med list shows by mouth, but does not state how many times daily, pharmacy is requesting PO every day before meals Primary Provider: STANLEY Love, P.A.-C. Requested Prescriptions Pending Prescriptions Disp Refills isosorbide mononitrate (Imdur) 120 mg 24 hr tablet [Pharmacy Med Name: ISOSORBIDE MONO ER 120MG] 90tablet 0 Sig: TAKE ONE TABLET BY MOUTH EVERY DAY BEFORE MEALS RUCTOR DECORATING documented in this encounter Plan of Treatment DateTypeDepartmentCare Team (Latest Contact Info)Fqmrmbiyhow47/05/2026 9:30 AM CSTDiagnostic Department of Otorhinolaryngology in [place], [place] [address] [place] [address] Christy Luque P.A.-C. [address] [place] [address] Addy Burgos Au.D. [address] [place] [address] 09/07/2025 9:50 AM CSTAppointment Department of Laboratory Medicine in [place], [place] [address] [facility] [place] [phone] Jo Bolaños MPAS, PMiquelA.-CMiquel [address] [facility] [place] [address] 09/09/2025 3:30 PM CSTOffice Visit Department of Community Internal Medicine in [place], [place] [address] [facility] [place] [phone] Jo Bolaños MPAS, EugeneA.-CMiquel [address] [facility] [place] [address] documented as of this encounter Visit Diagnoses Not on filedocumented in this encounter Care Teams Team MemberRelationshipSpecialtyStart DateEnd Date Jo Bolaños MPAS, PMiquelA.-C. [address] [facility] [place] [phone] PCP - GeneralInternal Uqemnoug43/10/25documented as of this encounter
--- OUTSIDE RECORDS SUMMARY | 2025-08-02 19:00 | XMS_ITS | Encounter Summary ---
Author Organization [facility] Address [address] [place] [address] Care Team Providers Care Inspector Machine Cut Glass Name Role Phone Jo Bolaños, P.A.-C. Primary Care Pro vider Encounter Details DateTypeDepartmentCare Team (Latest Contact Info)Tacuxkvqhgd89/28/2025Clinical Communication Department of Community Internal Medicine in [place], [place] [address] [place] [phone] Jo Bolaños MPAS, P.A.-C. [address] [place] [address] Social History Tobacco UseTypesPacks/DayYears UsedDateSmoking [...] live12/20/2024CommentsNoSex and Gender InformationValueDate RecordedSex Assigned at WuqstHkdyso94/19/2025 6:27 PM CDT Legal RsbKtfifi85/02/2017 4:56 AM CSTGender VqffnqmiDvxmek68/19/2025 6:27 PM CDT Sexual AkoobsstzlbIbswzxhu46/19/2025 6:27 PM CDTdocumented as of this encounter Miscellaneous Notes * Telephone Encounter - Sarah Montano L.P.N. - 07/01/2025 10:19 AM INSERT MOLDING OPERATOR Reason for communication: Nurse visit follow up - blood pressure is at goal. No additional concernsidentified at today's nurse visit (taking meds as prescribed, no side effects from medications, no current symptoms of headache, lighted headedness/dizziness, or blurry vision or chest pain). BP Readings from Last 3 Encounters: 07/01/25 135/79 06/21/25 137/81 06/10/25 139/85 RT MOLDING OPERATOR documented in this encounter Plan of Treatment DateTypeDepartmentCare Team (Latest Contact Info)Ppyfkboysro47/05/2026 9:30 AM CSTDiagnostic Department of Otorhinolaryngology in [place], [place] [address] [place] [phone] Christy Luque P.A.-C. [address] [place] [address] Addy Burgos Au.D. 200 [place] [address] 09/07/2025 9:50 AM CSTAppointment Department of Laboratory Medicine in [place], [place] [address] [phone] Jo Bolaños MPAS, P.A.-C. 300 [facility] [place] [address] 09/09/2025 3:30 PM CSTOffice Visit Department of Community Internal Medicine in [place], [place] [address] [place] [address] Jo Bolaños MPAS, P.A.-C. [address] [place] [address] documented as of this encounter Visit Diagnoses Not on filedocumented in this encounter Care Teams Team MemberRelationshipSpecialtyStart DateEnd Date oJ Bolaños MPAS, P.A.-C. [address] [place] [phone] PCP - GeneralInternal Fogzetlk74/10/25documented as of this encounter
--- OUTSIDE RECORDS SUMMARY | 2025-08-02 19:00 | XMS_ITS | Encounter Summary ---
Author Organization [facility] Address [address] [place] [address] Care Team Providers Care Agricultural Specialist Name Role Phone Jo Bolaños, P.A.-C. Primary Care Pro vider Encounter Details DateTypeDepartmentCare Team (Latest Contact Info)Gbfcrwovjgr70/18/2025Results Follow-Up Department of Community Internal Medicine in [place], [place] [address] [place] [address] Jo Bolaños MPAS, P.A.-C. [address] [place] [address] Urinalysis, with Microscopic: Urine, Midstream, Bacterial Culture, Aerobic + Susceptibility, Urine Social History Tobacco UseTypesPacks/DayYears UsedDateSmoking Tobacco: NeverPassive Smoke Exposure: YesSmokeless Tobacco: NeverAlcohol UseStandard Drinks/WeekCommentsNot Currently0 (1 standard drink = 0.6 oz pure alcohol)when i was in my 20,s for a couple yrs drinks with ice creamAHC UtilitiesAnswerDate RecordedIn the past 12 months has the [employer], gas, oil, or water [employer] threatened to shut off services in your [...] live12/20/2024CommentsNoSex and Gender InformationValueDate RecordedSex Assigned at HxdnoYsnowl53/19/2025 6:27 PM CDT Legal AttDsbciz52/02/2017 4:56 AM CSTGender YimfzwocQiwtns49/19/2025 6:27 PM CDT Sexual DrdebtcclliWllyzhse72/19/2025 6:27 PM CDTdocumented as of this encounter Miscellaneous Notes * Telephone Encounter - Zara Lopez R.N. - 06/21/2025 3:50 PM CST Left message for patient to return call to clinic. Does the patient need to speak to nursing? yes Action needed: Please relay message from Jo Bolaños: Urinalysis is suggestive of urinary tract infection. We will treat with cefdinir 300 mg BID for 5 days. Sent to pharmacy. K KILN WORKER documented in this encounter Plan of Treatment DateTypeDepartmentCare Team (Latest Contact Info)Pjcbdssfaqo80/05/2026 9:30 AM CSTDiagnostic Department of Otorhinolaryngology in [place], [place] [address] [place] [phone] Christy Luque P.A.-C. [address] [place] [phone] Addy Burgos Au.D. 200 [place] [phone] 09/07/2025 9:50 AM CSTAppointment Department of Laboratory Medicine in [place], [place] [address] [place] [address] Jo Bolaños MPAS, P.A.-C. 300 [facility] [place] [address] 09/09/2025 3:30 PM CSTOffice Visit Department of Community Internal Medicine in [place], [place] [address] [facility] [place] [address] Jo Bolaños MPAS, P.A.-C. [address] [place] [address] documented as of this encounter Visit Diagnoses Diagnosis Cystitis Acute- Primary documented in this encounter Care Teams Team MemberRelationshipSpecialtyStart DateEnd Date Jo Bolaños MPAS, P.A.-C. 300 [facility] [place] [address] PCP - GeneralInternal Bysvogsk77/10/25documented as of this encounter
--- OUTSIDE RECORDS SUMMARY | 2025-08-02 19:01 | XMS_ITS | Encounter Summary ---
Author Organization [facility] Address [address] [place] [address] Care Team Providers Care Tyre Builder Name Role Phone Jo Bolaños P.A.-C. Primary Care Pro vider Reason for Referral * Outpatient (Routine) - AuthorizedSpecialtyDiagnoses / ProceduresReferred By ContactReferred To ContactNeurology Diagnoses Headache Unspecified Jo Bolaños MPAS, P.AMiquel-CMiquel 300 [facility] [address] Phone: tel: fax: [facility] Region Referral IDStatus[facility]irm[facility] DateExpiration DateVisits RequestedVisits [id number]/26/20256/27/202711 E OPERATOR Reason for Visit * ReasonOnset CntaXdyjuwdsKwvtqvj12/26/202512/29/25 MRI results via portal. Encounter Details DateTypeDepartmentCare Team (Latest Contact Info)Umpmuycygnx67/26/2025Results Follow-Up Department of Community Internal Medicine in [place], [place] 300 [facility] [place] [address] Jo Bolaños MPAS, P.A.-C. [address] [place] [address] MR Brain without and with IV Contrast Social History Tobacco UseTypesPacks/DayYears UsedDateSmoking Tobacco: NeverPassive Smoke Exposure: YesSmokeless Tobacco: NeverAlcohol UseStandard Drinks/WeekCommentsNot Currently0 (1 standard drink = 0.6 oz pure alcohol)when i was in my 20,s for a couple yrs drinks with ice creamAHC UtilitiesAnswerDate RecordedIn the past 12 months has the [employer], gas, oil, or water [employer] threatened to shut off services in your [...] live12/20/2024CommentsNoSex and Gender InformationValueDate RecordedSex Assigned at MbtkeSkessm65/19/2025 6:27 PM CDT Legal AslCslxeq81/02/2017 4:56 AM CSTGender ZhybyhseSreifv33/19/2025 6:27 PM CDT Sexual SlzoevzfhpcPyopjlxo57/19/2025 6:27 PM CDTdocumented as of this encounter Plan of Treatment DateTypeDepartmentCare Team (Latest Contact Info)Geovooxvnkl31/05/2026 9:30 AM CSTDiagnostic Department of Otorhinolaryngology in [place], [place] [address] [place] [address] Christy Luque P.A.-C. [address] [place] [address] Addy Burgos Au.D. [address] [place] [address] 09/07/2025 9:50 AM CSTAppointment Department of Laboratory Medicine in [place], [place] [address] [place] [phone] Jo Bolaños MPAS, PMiquelAMiquel-CMiquel [address] [place] [address] 09/09/2025 3:30 PM CSTOffice Visit Department of Community Internal Medicine in [place], [place] [address] [place] [phone] Jo Bolaños MPAS, EugeneA.-CMiquel [address] [place] [phone] NameTypePriorityAssociated DiagnosesOrder ScheduleNeurology - ICS consult (clinic) [facility] RegionOutpatient ReferralRoutine Headache Unspecified Expected: 07/29/2025, Expires: 10/27/2026documented as of this encounter Visit Diagnoses Diagnosis Headache Unspecified- Primary documented in this encounter Care Teams Team MemberRelationshipSpecialtyStart DateEnd Date Jo Bolaños MPAS, PMiquelA.-C. [address] [place] [phone] PCP - GeneralInternal Xydfiptd12/10/25documented as of this encounter
--- OUTSIDE RECORDS SUMMARY | 2025-08-02 19:01 | XMS_ITS | Encounter Summary ---
Author Organization [facility] Address [address] [place] [address] Care Team Providers Care Manager Pricing Name Role Phone Jo Bolaños P.A.-C. Primary Care Pro vider Encounter Details DateTypeDepartmentCare Team (Latest Contact Info)Quzilsicpjd84/30/2025Clinical Communication Department of Internal Medicine in [place], [place] [address] [address] Zach Kathleen D.O. [address] [address] Social History Tobacco UseTypesPacks/DayYears UsedDateSmoking Tobacco: NeverSmokeless Tobacco: NeverAlcohol UseStandard Drinks/WeekCommentsNot Currently0 (1 standard drink = 0.6 oz pure alcohol)when i was in my 20,s for a couple yrs drinks with ice cream [facility] UtilitiesAnswerDate RecordedIn the past 12 months has [...] CommentsNoSex and Gender InformationValueDate RecordedSex Assigned at Zlihyf2512/20/2024 6:27 PM CDTLegal NtuOcgdik65/02/2017 4:56 AM CSTGender Identity Uxcmvw1712/20/2024 6:27 PM CDTSexual RvtxqbpkgcnIojszgro05/19/2025 6:27 PM CDT documented as of this encounter Miscellaneous Notes * Telephone Encounter - Denise Fraga CMiquelMEvan - 06/02/2025 4:20 PM CDT Information Discussed Informed Sarahy of results exactly as stated by provider. PLAN Disposition/Recommendation: self-care is appropriate at this time, patient encouraged to call back with questions Information/Education: patient/caller able to teach back Caller agreeable to plan of care: yes The following references were used: provider Dr. Kathleen * Telephone Encounter - Zach Kathleen D.O. - 06/02/2025 3:54 PM CDT Please let the patient know that her urine results returned back indicating that she likely has an infection. The culture is still pending and will take 24-36 hours to fully result. Please apologize for any confusion. It was actually intending to follow up with her after she left the urine sample but it appears that she went ahead and left the building. If any adjustments in medications are needed after receiving the culture results she will be contacted by telephone. A new prescription for nitrofurantoin has been sent to her local [facility] pharmacy. Please let me know if she has any questions or concerns. Thank you, Zach Kathleen D.O. documented in this encounter Plan of Treatment DateTypeDepartmentCare Team (Latest Contact Info)Zqpcthvgkvv55/05/2026 9:30 AM CSTDiagnostic Department of Otorhinolaryngology in [place], [place] [address] [place] [address] Christy Luque P.A.-C. [address] [place] [phone] Addy Burgos Au.D. [address] [place] [address] 09/07/2025 9:50 AM CSTAppointment Department of Laboratory Medicine in [place], [place] [address] [place] [phone] Jo Bolaños MPAS, P.A.-C. [address] [place] [address] 09/09/2025 3:30 PM CSTOffice Visit Department of Community Internal Medicine in [place], [place] [address] [place] [phone] Jo Bolaños MPAS, P.A.-CMiquel [address] [place] [phone] documented as of this encounter Visit Diagnoses Diagnosis Acute Cystitis Without Hematuria- Primary documented in this encounter Care Teams Team MemberRelationshipSpecialtyStart DateEnd Date Jo Bolaños MPAS, P.A.-C. [address] [place] [phone] PCP - GeneralInternal Xtiyuekz38/10/25documented as of this encounter
--- OUTSIDE RECORDS SUMMARY | 2025-08-02 19:01 | XMS_ITS | Encounter Summary ---
Author Organization [facility] Address [address] [place] [address] Care Team Providers Care Sales Operations Analyst Name Role Phone Jo Bolaños, P.A.-C. Primary Care Pro vider Encounter Details DateTypeDepartmentCare Team (Latest Contact Info)Xknghliwtdt48/19/2025Results Follow-Up Department of Community Internal Medicine in [place], [place] [address] [place] [address] Jo Bolaños MPAS, P.A.-C. [address] [place] [address] DX Pelvis 1-2 Views Social History Tobacco UseTypesPacks/DayYears UsedDateSmoking Tobacco: NeverPassive [...] live12/20/2024CommentsNoSex and Gender InformationValueDate RecordedSex Assigned at QjacfMyurvn01/19/2025 6:27 PM CDT Legal LiuAzjuga68/02/2017 4:56 AM CSTGender PgzilpplQaxsvb60/19/2025 6:27 PM CDT Sexual PyfbszfmhdbQhrgpydr87/19/2025 6:27 PM CDTdocumented as of this encounter Plan of Treatment DateTypeDepartmentCare Team (Latest Contact Info)Sepxvanaifa51/05/2026 9:30 AM CSTDiagnostic Department of Otorhinolaryngology in [place], [place] [address] [place] [address] Christy Luque P.A.-CMiquel 0 [place] [phone] Addy Burgos Au.D. [address] [place] [address] 09/07/2025 9:50 AM CSTAppointment Department of Laboratory Medicine in [place], [place] [address] [place] [phone] Jo Bolaños MPAS, P.A.-C. [address] [place] [phone] 09/09/2025 3:30 PM CSTOffice Visit Department of Community Internal Medicine in [place], [place] [address] [place] [phone] Jo Bolaños MPAS, P.A.-C. 300 [facility] [address] [place] [phone] documented as of this encounter Visit Diagnoses Not on filedocumented in this encounter Care Teams Team MemberRelationshipSpecialtyStart DateEnd Date Jo Bolaños MPAS, PMiquelAMiquel-C. [address] [phone] PCP - GeneralInternal Vfubeuce27/10/25documented as of this encounter
--- OUTSIDE RECORDS SUMMARY | 2025-08-02 19:01 | XMS_ITS | Clinical Summary ---
Author Organization [facility] Address [address] [place] [address] Care Team Providers Care Referral Clerk Name Role Phone Jo Bolaños P.A.-C. Primary Care Pro vider Source Comments Patient records contain information from all sites at [facility]. For routine questions regarding patient records, call [phone] during business hours, M-F 8:00 AM - 5:00 PM Central Time. Record requests for emergency care only can be directed to [phone] at any time.[facility] Allergies Active AllergyReactionsCriticalityNoted DateCommentsAmlodipineOther (see comments)Low05/17/2021 Dizziness NortriptylineOther (see comments)Low08/06/2022 Syncope Medications MedicationSigDispense QuantityRefillsLast FilledStart DateEnd DateStatus aspirin [address] tablet Take by mouth.06/11/2007ctive blood sugar diagnostic strips (Contour Next Test Strips) Dispense meter, test strips, lancets covered by pt ins. E11.9 IDDM type II - Test 2 times/day.07/03/2022ctive carvediloL (Coreg) 12.5 mg tablet Take 12.5 mg by mouth daily.12/06/2022ctive nitroglycerin (NITROSTAT) 0.[address] 0.4 mg under the tongue every 2 (two) hours as needed.12/06/2022ctive Microlet Lancet use to test two times a day09/14/2024tive rosuvastatin (Crestor) 10 mg tablet Take 10 mg by mouth at bedtime.5Active diphenhydrAMINE-acetaminophen (TylenoL PM) 25-500 mg per tablet Take 2 tablets by mouth at bedtime.Active pantoprazole (Protonix) 40 mg EC tablet Take 1 tablet (40 mg total) by mouth daily before morning meal. 90 tablet 5Active acetaminophen (TylenoL 8 Hr) 650 mg ER tablet Take 1,300 mg by mouth daily.Active furosemide (Lasix) 20 mg tablet 1 tablet (20 mg total) every other day.5Active omeprazole (PriLOSEC) [address] capsule take one capsule by mouth once daily before a meal5Active nitroglycerin (Nitrostat) 0.[address] 1 tablet (0.4 mg total) under the tongue every 5 (five) minutes as needed for chest pain. 100 tablet 5Active allopurinoL (Zyloprim) 100 mg tablet TAKE TWO TABLETS BY MOUTH EVERY DAY. 180 tablet 5Active lisinopriL 20 mg tablet Take 1 tablet (20 mg total) by mouth daily. 90 tablet 5Active glipiZIDE (GlucotroL) 5 mg tablet Take 1 tablet (5 mg total) by mouth daily before morning meal. 90 tablet 5Active isosorbide mononitrate (Imdur) 120 mg 24 hr tablet TAKE ONE TABLET BY MOUTH EVERY DAY BEFORE MEALS 90 tablet 5Active isosorbide mononitrate (IMDUR) 120 mg 24 hr tablet Take 120 mg by mouth.Discontinued lisinopriL 20 mg tablet Take 1 tablet (20 mg total) by mouth daily. 30 tablet Discontinued(Reorder) glipiZIDE (GlucotroL) 5 mg tablet Take 1 tablet (5 mg total) by mouth daily before morning meal. 90 tablet Discontinued(Reorder) Active Problems ProblemNoted DateDiagnosed DateIncontinence Hqxxvbv1106/21/2025Hypertensive Heart And Chronic Kidney Disease With Heart Failure And Stage 1 To 4 Chronic Kidney Disease Or Unspecified Chronic Kidney Aijbsgt2506/10/2025therosclerotic Heart Disease Of [place] Coronary Artery Without Angina Dqicfhyp25/06/2025 Overview (03/09/2025): -Angiogram 05/18/14: METER INSTALLER pLCx, otherwise mild luminal irregularities -Attempted PCI of METER INSTALLER pLCx 05/19/14, unsuccessful -NSTEMI 08/01/14 -Coronary angiography 08/01/14: METER INSTALLER pLCx, unchanged. Otherwise mild luminal irregularities. Attempted PCI of METER INSTALLER unsuccessful with both antegrade and retrograde techniques. [...] physician. 04/23/2021 @ 1500 - angiogram 05/07/2021 Chronic Kidney Disease (CKD), Stage 3b Glomerular Filtration Rate (GFR) 30 To 44 03/09/2025Fatty Liver03/09/2025Reflux Evkqokixif93/06/2025Polymyalgia Rheumatica 5Congestive Heart Iaxzkoj98/12/2022Presence Of Automatic (Implantable) Cardiac Defibrillator With Synchronous Cardiac Pacemaker (ICD And AICD) 05/07/2021 Overview (03/09/2025): - placed due to VT Diabetes Mellitus Type Overview (03/09/2025): Diabetes Mellitus Type 2 in Obese; Original Code: 250.00 Original Codesystem: ICD-9-CM Classification: Medical Confirmation Status: Confirmed Gout11/21/2006 Resolved Problems ProblemNoted DateDiagnosed DateResolved DateChronic Kidney Disease Stage 4 Glomerular Filtration Rate 15-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 Bacca, Madison J, Au.D. 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 Encounter For Checking And Testing Of Cardiac Pacemaker Pulse Generator Battery Discharge Disposition: Home or Self Care07/22/2025 11:35 AM CLINICAL CODER - 07/22/2025 12:39 PM CSTHospital Encounter Department of Radiology, [facility] in [place], [place] [address] [place] [address] Jo Bolaños MPAS PMiquelA.-C. Headache Unspecified Discharge Disposition: Home or Self Care07/22/2025 11:10 AM CLINICAL CODER - 07/22/2025 11:34 AM CSTHospital Encounter Department of Cardiovascular Diseases in [place], [place] [address] [place] [address] Ashok Butcher M.B.B.S. Encounter For Checking And Testing Of Cardiac Pacemaker Pulse Generator Battery Discharge Disposition: Home or Self Care07/22/2025 10:51 AM CLINICAL CODER - 07/22/2025 11:09 AM CSTHospital Encounter Department of Radiology, [facility] in [place], [place] [address] [place] [address] Jo Bolaños MPAS, P.A.-C. Headache Unspecified Discharge Disposition: Home or Self Care07/22/2025Results Follow-Up Department of [facility] in [place], [place] [address] [place] [address] Jo Bolaños MPAS, P.A.-C. DX Pelvis 1-2 Views07/21/2025 11:37 AM CLINICAL CODER - 07/21/2025 11:59 PM CSTHospital Encounter Department of Cardiovascular Diseases in [place], [place] [address] [place] [address] Alirio Vallejo M.D. Discharge Disposition: Home or Self Care5Clinical Communication Department of [facility] in [place], [place] [address] [place] [address] Jo Bolaños MPAS, P.A.-C. 07/15/2025 2:13 PM CLINICAL CODER - 07/15/2025 11:59 PM CSTHospital Encounter Department of Cardiovascular Diseases in [place], [place] [address] [place] [address] Jo Bolaños MPAS, P.A.-C. Headache Unspecified Discharge Disposition: Home or Self Care07/12/2025Refill Department of [facility] in [place], [place] [address] [place] [address] Jo Bolaños MPAS, P.A.-C. Med Mqymlh095Clinical Communication Department of [facility] in [address] [address] Jo Bolaños MPAS, P.A.-C. 07/01/2025 10:15 AM CSTNurse Only Department of Family Medicine, [facility], in [address] [phone] Jo Bolaños MPAS, P.A.-C. Sarah Montano L.P.N. Nurse Visit (BP check )07/01/2025 9:50 AM CLINICAL CODER - 07/01/2025 11:59 PM CSTHospital Encounter Department of Laboratory Medicine in [address] [phone] Jo Bolaños MPAS, P.A.-C. Chronic Kidney Disease (CKD), Stage 3b Glomerular Filtration Rate (GFR) 30 To 44 ([facility]) Discharge Disposition: Home or Self Care5Clinical Communication Department of Community Internal Medicine in [address] [phone] Jo Bolaños MPAS, P.A.-C. 06/21/2025 11:41 AM CLINICAL CODER - 06/21/2025 11:59 PM CSTHospital Encounter Department of Laboratory Medicine in [address] [phone] Jo Bolaños MPAS, P.A.-C. Dysuria Discharge Disposition: Home or Self Care06/21/2025 11:00 AM CSTOffice Visit Department of Community Internal Medicine in [address] [phone] Jo Bolaños MPAS, P.A.-C. Dysuria (Primary Dx); Pain Right Lower Aykeiahl37/18/2025Results Follow-Up Department of [facility] in [address] [phone] Jo Bolaños MPAS, P.A.-C. Urinalysis, with Microscopic: Urine, Midstream, Bacterial Culture, Aerobic + Susceptibility, Urine5Clinical Communication Department of [facility] in [address] [address] Jo Bolaños MPAS, P.A.-C. Med Nvmkbywx46/10/2025Results Follow-Up Department of [facility] in [address] [address] Jo Bolaños MPAS, P.A.-C. Albumin, Random, Urine, Basic Metabolic Panel06/10/2025 2:20 PM CLINICAL CODER - 06/10/2025 11:59 PM CSTHospital Encounter Department of Laboratory Medicine in [address] [phone] Jo Bolaños MPAS, P.A.-C. Diabetes Mellitus Type 2 (HCC) Discharge Disposition: Home or Self Care06/10/2025 1:30 PM CSTOffice Visit Department of Community Internal Medicine in [address] [phone] Jo Bolaños MPAS, P.A.-C. Diabetes Mellitus Type 2 (HCC) (Primary Dx); Gout; Chronic Kidney Disease (CKD), Stage 3b Glomerular Filtration Rate (GFR) 30 To 44 (HCC); Hypertensive Heart And Chronic Kidney Disease With Heart Failure And Stage 1 To 4 Chronic Kidney Disease Or Unspecified Chronic Kidney Disease (HCC); Need Vaccine Zncwxamxwjvt50/06/2025 9:29 AM CLINICAL CODER - 06/09/2025 11:59 PM CLINICAL CODER Hospital Encounter Department of Laboratory Medicine in [address] [phone] Jo Bolaños MPAS, P.A.-C. Diabetes Mellitus Type 2 (HCC) Discharge Disposition: Home or Self Care06/08/2025Refill Department of [facility] in [address] [phone] Jo Bolaños MPAS, P.A.-C. Med Jsyven7306/06/2025Results Follow-Up Department of Internal Medicine in [place], [place] [address] [address] Zach Kathleen D.O. Urinalysis with Microscopic if Indicated: Urine, Midstream, Bacterial Culture, Aerobic + Susceptibility, Urine, Microscopic Lbyxuhiqn19/30/2025 2:30 PM CDT Office Visit Department of Internal Medicine in [place], [place] [address] [place] [phone] Zach Kathleen D.O. Symptom Urinary (Primary Dx); Acute Cystitis Without Qmszjmidd38/30/2025linical Communication Department of Internal Medicine in [place], [place] [address] [phone] Zach Kathleen D.O. 06/02/2025Nurse Triage Department of Family Medicine, [facility], in [place], [place] [address] [place] [phone] Alanna Sullivan, RMiquelN. Weight Gain; Abdominal Pain; Generalized Body Aches1Refill Department of [facility] in [place], [place] [address] [place] [phone] Jo Bolaños MPAS, P.A.-C. Med Axyrhx725Clinical Communication Department of [facility] in [place], [place] [address] [place] [phone] Jo Bolaños MPAS, P.A.-C. After Visit Questionfrom Last 3 Months Immunizations ImmunizationAdministration DatesNext DueHZV (ZOSTAVAX)08/11/2012Influenza TIV (IM)06/10/2024,05/11/2018Influenza high dose QV(65 years or older) (PF) 05/17/2022,05/24/2021,05/25/2020Influenza, Quadrivalent, Adjuvanted, Preservative Free06/20/2023Influenza, Seasonal, Ttcsxzccqx79/10/2013,04/24/2012, 05/08/2010,05/25/2009,06/11/2007,06/02/2006,06/01/2004,08/05/20036552JLC5605/23/2016 AQVV2258,09/27/20087597QMSY-FTD-5 (COVID-19) - MODERNA (12 YEARS AND OLDER) Fall Lrwpwijd61/28/2025Td (Adult), shabvvrq13/08/0084Adqn54/27/2017influenza trivalent high dose (HD)(PF)06/10/2025,05/19/2019,05/12/2017,06/26/2016, 05/25/2015,05/17/2014influenza trivalent vaccine (6 months and older)(PF) 04/25/2011 Social History Tobacco UseTypesPacks/DayYears UsedDateSmoking Tobacco: NeverPassive Smoke Exposure: YesSmokeless Tobacco: Never Tobacco Cessation:Counseling Given: Not Answered Alcohol UseStandard Drinks/WeekCommentsNot Currently0 (1 standard drink = 0.6 oz pure alcohol)when i was in my 20,s for a couple yrs drinks with ice creamAHC UtilitiesAnswerDate RecordedIn the past 12 months has the [employer], gas, oil, or water [employer] threatened to shut off services in your [...] CommentsNoSex and Gender InformationValueDate RecordedSex Assigned at Ocwkmz1012/20/2024 6:27 PM CDTLegal XxmGxqtgn35/02/2017 4:56 AM CSTGender Identity Iuvkri8012/20/2024 6:27 PM CDTSexual YkgpypsvwioAwgkncge41/19/2025 6:27 PM CDT Last Filed Vital Signs Vital SignReadingTime TakenCommentsBlood Fswyirtf773/7911 10:10 AM CLINICAL CODER Average of 7Keaja9844/19/2025 1:28 PM ODUPasedkpwaps89.1 ??C (97 ??F)06/21/2025 10:59 AM CSTRespiratory Sssl273508/21/2024 10:59 AM CSTOxygen Hvgrcflhqd24% 07/22/2025 1:28 PM CSTInhaled Oxygen Concentration--Vxmmnl04.3 kg (208 lb) 06/21/2025 10:59 AM CSThome scale this glvbocvKojybs971 cm (5' 3.78)06/10/2025 1:22 PM CSTBody Mass Index35.9506/10/2025 1:22 PM CLINICAL CODER Plan of Treatment DateTypeDepartmentCare Team (Latest Contact Info)Tlusmdyybig57/05/2026 9:30 AM CSTDiagnostic Department of Otorhinolaryngology in [place], [place] [address] [place] [address] Christy Luque P.A.-C. [address] [place] [phone] Addy Burgos Au.D. [address] [place] [address] 09/07/2025 9:50 AM CSTAppointment Department of Laboratory Medicine in [address] [place] [address] Jo Bolaños MPAS, P.A.-C. [address] [facility] [place], [place] [address] 09/09/2025 3:30 PM CSTOffice Visit Department of [facility] in [place], [place] [address] [place] [phone] Jo Bolaños MPAS, P.A.-C. [address] [facility] [place] [phone] Health MaintenanceDue DateLast DoneCommentsDiabetic Eye Exam1945Visit: Medicare Annual Arkesgqj86/07/1946Hepatitis B Vaccines (1 of 3 - Risk 3-dose series)2005Zoster Vaccines (2 of 3)RSV vaccine - (32-36 weeks) or 50+ years (1 - 1-dose 75+ series)2020Hemoglobin A1C, 06/10/2024, 07/24/2023, Additional history existsCOVID- 19 Vaccine ( season), 06/10/2024, 05/27/2022, Additional history existsDiabetic Office Visit with Foot Exam06/10/2026 06/10/2025Urine Bwdokyb70Visit: Chronic Disease, age 18+ , 06/10/2025reatinine Level (Kidney Function Test) , 04/18/2025, 03/27/2025, Additional history existsOffice Visit for Blood Pressure Check / Re-checkPotassium Level , 04/18/2025, 03/27/2025, Additional history existsSodium Level, 04/18/2025, 03/27/2025, Additional history exists DTaP,Tdap,and Td Vaccines (2 - Td or Tdap), 10/09/2004 Pneumococcal vaccine (50+ years)Vjnewtrvk56/23/2016, 12/27/2011, 09/27/2008 Hepatitis B GccsmqhktVgojfdyxkguf01/24/2025Fall Risk Screen (Annual)Completed 12/07/2024Depression Screening (Annual PHQ-2)Mpqtyxqgs43/18/2025, 02/18/2025 Influenza LihsiwaEibjnztuf70/07/2025, 06/10/2024, 06/20/2023, Additional history existsIPV VaccinesAged OutNo longer eligible based on patient's age to complete this topic Medical Devices ImplantedTypeAreaManufacturerDevice IdentifierShelf Expiration DateModel / Serial / LotMedtronic 5076 Capsurefix Novus Mri [id number] Implanted:08/26/2016 (Quantity not on file)Cardiac YrpzJiqephkdl4696 CAPSUREFIX NOVUS MRI / [id number] / Medtronic 6935 Sprint Quattro Secure S [id number] Implanted:08/26/2016 (Quantity not on file)Cardiac VosnBvvqiqxwv3207 SPRINT QUATTRO SECURE S / [id number] / Mamotome Hydromark Breast Biopsy Site Marker Implanted:Qty[facility]Imaging MarkerRight: [id number] / / [id number] Cardiac Defibrillator/PacemakerImplant Cardiac Defibrillator ChestMedtronic Evera Mri Xt [id number] Implanted:08/26/2016 (Quantity not on file)Implant Cardiac Defibrillator MedtronicEVERA MRI XT DR SINCLAIR / [id number] / Neurostimulator Rechargable Interstim Micro SurescanSacral Nerve Stimulator Left: TkyrTnafcrqhi48229 / / Description: Medtronic Bladder Stimulator since 2019. MR Conditional @ 1.5T or potentially 3T with Physicist coverage. Schedule on 1.5T unless approved. [email or web address] Adiel Strain 03/25/25.Lead Kit 2.16mm Spacing 28cm Length InterstimStimulator HrdnzBiubfdLgvshilcr167O960 / / Description:Lead For Medtronic Bladder Stimulator Procedures Procedure NamePriorityDate/TimeAssociated DiagnosisCommentsMR BRAIN WITHOUT AND WITH IV CONTRASTRAD - Routine (most inpatients and all outpatients)07/22/2025 1:29 PM CLINICAL CODER Headache Unspecified ICD PERIOPERATIVE UXBPOKDKFUAWGUhlvtal64/19/2025 1:15 PM CLINICAL CODER Encounter For Checking And Testing Of Cardiac Pacemaker Pulse Generator Battery PACER PERIOPERATIVE ULCTULLTYVSDVKoifege82/19/2025 12:55 PM CLINICAL CODER Encounter For Checking And Testing Of Cardiac Pacemaker Pulse Generator Battery DX PELVIS 1-2 VIEWSRAD - Routine (most inpatients and all outpatients)07/22/2025 11:58 AM CLINICAL CODER Headache Unspecified AUDIO-VESTIBULAR BALANCE SPNGPDOWJUCfxlcre35/19/2025 12:00 AM CLINICAL CODER Imbalance Non Orthopedic Dizziness INTERFACED REMOTE DEVICE DMYMTBopjgjp29/18/2025 11:37 AM CLINICAL CODER ICD DUAL CHAMBER INTERROGATION WITH UMPLALENFRTHkozcgt86/12/2025 3:35 PM CLINICAL CODER Headache Unspecified BASIC METABOLIC PANEL, S/OPviiqfc76/28/2025 10:02 AM CLINICAL CODER Chronic Kidney Disease (CKD), Stage 3b Glomerular Filtration Rate (GFR) 30 To 44 (HCC) URINALYSIS WITH EDNFMTBDLXXAtxshyo41/18/2025 11:45 AM CLINICAL CODER Dysuria BACTERIAL CULTURE, AEROBIC + SUSC, ESOOBEgnczkf55/18/2025 11:45 AM CLINICAL CODER Dysuria ALBUMIN, RANDOM, OXklgfad13/07/2025 2:36 PM CLINICAL CODER Diabetes Mellitus Type 2 (HCC) HEMOGLOBIN A1C, YIifffza42/06/2025 9:44 AM CLINICAL CODER Diabetes Mellitus Type 2 (HCC) OR URINALYSIS AUTO WO RAQGWAyjvpmk03/30/2025 2:56 PM CDT URINALYSIS WITH MICROSCOPIC IF INDICATED, XTktsgxm28/30/2025 2:56 PM CDT Symptom Urinary BACTERIAL CULTURE, AEROBIC + SUSC, VBVDIHmwtilm55/30/2025 2:56 PM CDT Symptom Urinary HEPATITIS B SURFACE XOMRUGERyhzbpa15/24/2025 11:15 AM CDT Abnormal C Reactive Protein from Last 3 Months or Most Recently Relevant to Health Maintenance Results * MR Brain without and with IV Contrast (07/22/2025 1:29 PM CLINICAL CODER)Anatomical RegionLateralityModalityHead, Brain, Neuroradiology RST LOS, Neuroradiology ARZ LOS, Neuroradiology FLA LOSN/AMagnetic ResonanceSpecimen (Source) Anatomical Location / LateralityCollection Method / VolumeCollection Time Received Time Impressions 07/22/2025 2:31 PM CLINICAL CODER 1. No acute intracranial abnormality identified. 2. 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 3. 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 4. Signal abnormality in the left sigmoid sinus may represent slow flow or potentially thrombosis. 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 Dlrd-xe-dydymipo leukoaraiosis. Hyperintense FLAIR and T1 signal in the left sigmoid sinus. The remainder of the major intracranial vascular flowvoids are maintained. Bilateral ocular lens implants. Orbits otherwise unremarkable. Minimal membrane thickening scattered about the paranasal sinuses. Jqnw-of-jytizdbb opacification of the left mastoid air cells. [...] asuperimposed component of communicating hydrocephalus/normal pressurehydrocephalus (NPH). Cgxg-mg-mkqauldz leukoaraiosis. Hyperintense FLAIRand T1 signal in the left sigmoid sinus. The remainder of the majorintracranial vascular flow voids are maintained. Bilateral ocular lensimplants. Orbits otherwise unremarkable. Minimal membrane thickening scattered about the paranasal sinuses. Mrsf-lo-dddocsel opacification ofthe left mastoid air cells. The [...] flow or potentially thrombosis. Authorizing ProviderResult TypeResult StatusDesiredede ANGEL P.A.-C.IMG MRI PROCEDURESFinal Result * ICD PERIOPERATIVE INTERROGATION (07/22/2025 1:15 PM CLINICAL CODER) Only the most recent of3 resultswithin the time period is included. ComponentValueRef RangeTest MethodAnalysis TimePerformed AtPathologist Signature Murj MRI ConditionalyesFOUNDATION LAB SYSTEMDate Time Interrogation Session [id number] LAB SYSTEMImplantable Pulse Generator Ceramic Painter MedtronicFOUNDQUINLAN EYE SURGERY & LASER CENTER LAB SYSTEMImplantable Pulse Generator TypeDefibrillator [facility] SYSTEMImplantable Pulse Generator ModelEvera MRI XT VYEK2O5 [facility] SYSTEMImplantable Pulse Generator Serial [id number] [facility] SYSTEMImplantable Pulse Generator Implant [id number] LAB SYSTEMBattery Remaining Longevity7.0moFOUNDATION LAB SYSTEMBattery Voltage 2.820FOUNDATION LAB SYSTEMBattery UNATTENDED GROUND SENSOR SPECIALIST Trigger2.730FOUNDATION LAB SYSTEMBattery StatusMOSFOUNDATION LAB SYSTEMCapacitor Charge Time4.700FOUNDATION LAB SYSTEM Cal Statistic RA Percent Paced99.88FOUNDATION LAB SYSTEMBrady Statistic RV Percent Paced0.04FOUNDATION LAB SYSTEMAtrial Tachy Statistic AT/AF Fyffe Percent0.00FOUNDATION LAB SYSTEMLead Channel Impedance Juhdg460MICWFNIYPK LAB SYSTEMLead Channel Pacing Threshold Amplitude0.500FOUNDATION LAB SYSTEMLead Channel Pacing Threshold Pulse Width0.4FCHOCTAW REGIONAL MEDICAL CENTERATION LAB SYSTEMLead Channel Measurements Date and [id number] LAB SYSTEMLead Channel Setting Pacing Amplitude1.500FOUNDQUINLAN EYE SURGERY & LASER CENTER LAB SYSTEMLead Channel Setting Pacing Pulse Width0.4FTIDALHEALTH NANTICOKE LAB SYSTEMLead Channel Sensing Intrinsic Amplitude5.000 [facility] SYSTEMLead Channel Setting Sensing Sensitivity0.30FOUNDATION LAB SYSTEMLead Channel Impedance Zbmms508QVHORDPTAG LAB SYSTEMLead Channel Pacing Threshold Amplitude0.750FOUNDATION LAB SYSTEMLead Channel Pacing Threshold Pulse Width0.4FOUNDATION LAB SYSTEMLead Channel Measurements Date and [id number] [facility] SYSTEMLead Channel Setting Pacing Amplitude2.000FOUNDATION LAB SYSTEMLead Channel Setting Pacing Pulse Width0.4FOUNDATION LAB SYSTEMBrady Setting Mode (NBG Code)AAIR_Or_DDDRFOUNDATION LAB SYSTEMBrady Setting Lower Rate Vpgpe60EQPSXOWGHG LAB SYSTEMBrady Setting AT Mode Switch Hfkl782UVIWWZBDBL LAB SYSTEMBrady Setting Maximum Tracking Iuky609QSAZRKCPIZ LAB SYSTEMBrady Setting Maximum Sensor Xmgv347TBOVYLWJHR LAB SYSTEMTherapy Statistic Recent Shocks Favfzal0CECMLKHTUT LAB SYSTEMTherapy Statistic Recent ATP Rjgonyfpy7ILELQZNANV LAB SYSTEMMurj RV HV Ovigmpqva59ZTSIIVHXJD LAB SYSTEMZone Setting Type Category VFFOUNDATION LAB SYSTEMMurj Rate 1188FOUNDATION LAB SYSTEMMurj TherapiesBurst, 35J, 35J, 35J, 35J, 35J, 35JFOUNDATION LAB SYSTEMZone Setting StatusOnFOUNDATION LAB SYSTEMMurj Zone GW6RSBZYOGGXG LAB SYSTEMZone Setting Type CategoryFVT FOUNDATION LAB SYSTEMZone Setting StatusOffFOUNDATION LAB SYSTEMMurj Zone ID1 FOUNDATION LAB SYSTEMZone Setting Type CategoryVTFOUNDATION LAB SYSTEMZone Setting StatusOffFOUNDATION LAB SYSTEMMurj Zone BN4FUQUGTDMUB LAB SYSTEMZone Setting Type CategoryVT MonitorFOUNDATION LAB SYSTEMMurj Rate 1150FOUNDATION LAB SYSTEMZone Setting StatusMonitorFOUNDATION LAB SYSTEMMurj Zone NO9RUPBXDHMQQ LAB SYSTEMImplantable Lead ManufacturerMedtronicFOUNDATION LAB SYSTEMImplantable Lead Bhgdk9579 CapsureFix Novus MRIFOUNDATION LAB SYSTEMImplantable Lead LocationRight AtriumFOUNDATION LAB SYSTEMImplantable Lead Connection Status ConnectedFOUNDATION LAB SYSTEMImplantable Lead Serial LcuvblCJW6357527OATFCYGQIZ LAB SYSTEMImplantable Lead Implant [id number] LAB SYSTEMImplantable Lead Special FunctionLead length: 52.00 cmFOUNDATION LAB SYSTEMImplantable Lead ManufacturerMedtronicFOUNDATION LAB SYSTEMImplantable Lead Zciok1262 Sprint Quattro Secure SFOUNDATION LAB SYSTEMImplantable Lead LocationRight Ventricle FOUNDATION LAB SYSTEMImplantable Lead Connection StatusConnectedFOUNDATION LAB SYSTEMImplantable Lead Serial [id number] LAB SYSTEMImplantable Lead Implant [id number] LAB SYSTEMImplantable Lead Special Function Lead length: 58.00 cmFOUNDATION LAB SYSTEMAnatomical RegionLateralityModality OtherSpecimen (Source)Anatomical Location / LateralityCollection Method / Volume Collection TimeReceived Time07/22/2025 8:50 PM CLINICAL CODER Impressions 07/22/2025 8:50 PM CLINICAL CODER Encounter Impression: Title: Post-MRI Check * Post-MRI device interrogation performed. This is MRI conditional system with no abandon leads. * Sensing, impedance and thresholds reviewed and tested * Presenting rhythm: AP/VS at 85 bpm. * Underlying rhythm: silent atrium with intact conduction when tested AAI. Continued to WEED CONTROL INSPECTOR at 30 bpm. * Confirmed pre-MRI device [...] intact conduction when tested AAI. Continued to WEED CONTROL INSPECTOR at 30 bpm. * Confirmed pre-MRI device [...] pacingthreshold data was reviewed. Authorizing ProviderResult TypeResult StatusAshok CanCV IMPLANTABLE CARDIAC DEVICEFinal Result * DX Pelvis 1-2 Views (07/22/2025 11:58 AM CLINICAL CODER)Anatomical RegionLaterality ModalityPelvis, Musculoskeletal RST LOS, Musculoskeletal ARZ LOS, Muskuloskeletal FLA LOSN/ADigital RadiographySpecimen (Source)Anatomical Location / LateralityCollection Method / VolumeCollection TimeReceived Time Impressions 07/22/2025 12:05 PM CLINICAL CODER Redemonstrated sacral stimulator and lead which appears intact and similar to 11/25/2024. Narrative 07/22/2025 12:05 PM CLINICAL CODER EXAM: DX PELVIS 1-2 VIEWS Procedure Note Yvon Horne M.D. - 07/22/2025 EXAM: DX PELVIS 1-2 VIEWS IMPRESSION: Redemonstrated sacral stimulator and lead which appears intact and similarto 11/25/2024. Authorizing ProviderResult TypeResult StatusJo ANGEL P.A.-C.IMG DIAGNOSTIC IMAGING PROCEDURESFinal Result * Audio-Vestibular Balance evaluation (07/22/2025 12:00 AM CLINICAL CODER)Specimen (Source) Anatomical Location / LateralityCollection Method / VolumeCollection Time Received Time07/22/2025 Narrative Authorizing ProviderResult TypeResult StatusChristy Luque P.A.-C.ENT ORDERABLES Final Result * CAR CARDIAC DEVICE INTERROGATION (07/21/2025 11:37 AM CLINICAL CODER)ComponentValueRef RangeTest MethodAnalysis TimePerformed AtPathologist SignatureMurj MRI ConditionalyesFOUNDATION LAB SYSTEMDate Time Interrogation Session [id number] LAB SYSTEMType Interrogation SessionRemoteFOUNDATION LAB SYSTEMImplantable Pulse Generator ManufacturerMedtronicFOUNDATION LAB SYSTEMImplantable Pulse Generator TypeDefibrillatorFOUNDATION LAB SYSTEM Implantable Pulse Generator ModelEvera MRI XT WCXO4A0GPISZGZFHO LAB SYSTEM Implantable Pulse Generator Serial [id number] LAB SYSTEM Implantable Pulse Generator Implant [id number] LAB SYSTEMBattery Remaining Longevity7.0moFOUNDATION LAB SYSTEMBattery Voltage2.830FOUNDATION LAB SYSTEMBattery UNATTENDED GROUND SENSOR SPECIALIST Trigger2.727FOUNDATION LAB SYSTEMBattery StatusOK [facility] LAB SYSTEMCapacitor Charge Time4.664FOUNDATION LAB SYSTEMBrady Statistic RA Percent Paced99.86FOUNDATION LAB SYSTEMBrady Statistic RV Percent Paced0.03FOUNDATION LAB SYSTEMAtrial Tachy Statistic AT/AF Fyffe Percent0.00 [facility] SYSTEMLead Channel Sensing Intrinsic Amplitude1.625FOUNDATION LAB SYSTEMLead Channel Setting Sensing Sensitivity0.60FOUNDATION LAB SYSTEM Lead Channel Impedance Jubdf187NOUXDKNEIS LAB SYSTEMLead Channel Pacing Threshold Amplitude0.500FOUNDATION LAB SYSTEMLead Channel Pacing Threshold Pulse Width0.4FOUNDATION LAB SYSTEMLead Channel Measurements Date and Time [id number] LAB SYSTEMLead Channel Setting Pacing Amplitude1.500 [facility] SYSTEMLead Channel Setting Pacing Pulse Width0.4FOUNDATION LAB SYSTEMLead Channel Sensing Intrinsic Amplitude4.125FOUNDATION LAB SYSTEMLead Channel Setting Sensing Sensitivity0.30FOUNDATION LAB SYSTEMLead Channel Impedance Mewks704COTABQLDJM LAB SYSTEMLead Channel Pacing Threshold Amplitude 0.750FOUNDATION LAB SYSTEMLead Channel Pacing Threshold Pulse Width0.4 [facility] SYSTEMLead Channel Measurements Date and Pzfp00620027DAVWAZWBNY LAB SYSTEMLead Channel Setting Pacing Amplitude2.000FOUNDATION LAB SYSTEMLead Channel Setting Pacing Pulse Width0.4FOUNDATION LAB SYSTEMBrady Setting Mode (NBG Code)AAIR<=>DDDRFOUNDATION LAB SYSTEMBrady Setting Lower Rate Limit70 [facility] SYSTEMBrady Setting AT Mode Switch Uiwh905MEYEOYFEEU LAB SYSTEM Cal Setting Maximum Tracking Tjbq657UIJZSPWINJ LAB SYSTEMBrady Setting Maximum Sensor Hzkm274DENRQHIJZO LAB SYSTEMBrady Setting PAV Hslwv473 [facility] LAB SYSTEMBrady Setting KAVITHA Oburf546CBJHUPFSSR LAB SYSTEMTherapy Statistic Recent Shocks Iddpcaklw7SGZHTRIHLJ LAB SYSTEMTherapy Statistic Recent Shocks Awwmljz6QOUGAZFDDT LAB SYSTEMTherapy Statistic Recent ATP Utaqxdfiu3QQPKJSJUYB LAB SYSTEMMurj RV HV Sutluwkxe97GQCRYSETOV LAB SYSTEMLead Channel Setting Sensing PolarityBipolarFOUNDATION LAB SYSTEMLead Channel Setting Sensing PolarityBipolarFOUNDATION LAB SYSTEMLead Channel Setting Pacing PolarityBipolarFOUNDATION LAB SYSTEMLead Channel Setting Pacing PolarityBipolarFOUNDATION LAB SYSTEMLead Channel Pacing Threshold Polarity BipolarFOUNDATION LAB SYSTEMLead Channel Pacing Threshold PolarityBipolar FOUNDATION LAB SYSTEMZone Setting Type CategoryAT/AFFOUNDATION LAB SYSTEMMurj Rate 1171FOUNDATION LAB SYSTEMMurj TherapiesAll Rx OffFOUNDATION LAB SYSTEM Zone Setting StatusMonitorFOUNDATION LAB SYSTEMMurj Zone BK3JAOKYYBPQQ LAB SYSTEMZone Setting Type CategoryVFFOUNDATION LAB SYSTEMMurj Rate 1188 FOUNDATION LAB SYSTEMMurj TherapiesATP During Charging, 03Xe1JVKJXWZYPR LAB SYSTEMZone Setting StatusOnFOUNDATION LAB SYSTEMMurj Zone MZ4EMLZPCGSRF LAB SYSTEMZone Setting Type CategoryVTFOUNDATION LAB SYSTEMZone Setting StatusOff FOUNDATION LAB SYSTEMMurj Zone EK1FVMZWMIUVT LAB SYSTEMZone Setting Type CategoryVTFOUNDATION LAB SYSTEMZone Setting StatusOffFOUNDATION LAB SYSTEMMurj Zone YF2WQOWWQVWXA LAB SYSTEMZone Setting Type CategoryVTFOUNDATION LAB SYSTEM Murj Rate 1150FOUNDATION LAB SYSTEMMurj Rate 2150FOUNDATION LAB SYSTEMZone Setting StatusENABLEDFOUNDATION LAB SYSTEMMurj Zone FF7BVEZFCMMFT LAB SYSTEM Implantable Lead ManufacturerMedtronicFOUNDATION LAB SYSTEMImplantable Lead Sczdz9380 CapsureFix Novus MRIFOUNDATION LAB SYSTEMImplantable Lead Location Right AtriumFOUNDATION LAB SYSTEMImplantable Lead Connection StatusConnected FOUNDATION LAB SYSTEMImplantable Lead Serial MzzlcmJWV4963475MYIAYPHQAI LAB SYSTEMImplantable Lead Implant [id number] LAB SYSTEMImplantable Lead Special FunctionLead length: 52.00 cmFOUNDATION LAB SYSTEMImplantable Lead ManufacturerMedtronicFOUNDATION LAB SYSTEMImplantable Lead Pcaxp9799 [employer]att[employer] Secure SFOUNDATION LAB SYSTEMImplantable Lead LocationRight VentricleFOUNDATION LAB SYSTEMImplantable Lead Connection StatusConnected [facility] SYSTEMImplantable Lead Serial RujbupBAW099406QGGCBTJLZKH LAB SYSTEMImplantable Lead Implant [id number] LAB SYSTEMImplantable Lead Special FunctionLead length: 58.00 cmFOUNDATION LAB SYSTEMAnatomical RegionLateralityModalityOtherSpecimen (Source)Anatomical Location / Laterality Collection Method / VolumeCollection TimeReceived Time07/21/2025 12:19 PM CLINICAL CODER Impressions 07/21/2025 12:19 PM CLINICAL CODER Encounter Impression: Title: Normal Remote: No Events [...] StatusDurob Vallejo M.D.CV IMPLANTABLE CARDIAC DEVICEFinal Result * (ABNORMAL) Basic Metabolic Panel (07/01/2025 10:02 AM CLINICAL CODER)ComponentValueRef RangeTest MethodAnalysis TimePerformed AtPathologist SignaturePotassium, P4.6 3.6 - 5.2 mmol/L108/31/2024 1:24 PM CSTOWATSodium, S732033 - 145 mmol/L 07/01/2025 1:24 PM CSTOWATChloride, D19761 - 107 mmol/L108/31/2024 1:24 PM CLINICAL CODER OWATBicarbonate, P2422 - 29 mmol/L108/31/2024 1:24 PM [...] (Blood, Venous)07/01/2025 10:02 AM CST07/01/2025 12:55 PM CLINICAL CODER Narrative Authorizing ProviderResult TypeResult StatusDesiree Dealorna ANGEL, P.A.-C.LAB BLOOD ADD-ONFinal ResultPerforming OrganizationAddressCity/State/ZIP CodePhone Number [facility] [address] [place] [address], [place] [facility] [place] [address] [place] [address] * (ABNORMAL) Bacterial Culture, Aerobic + Susceptibility, Urine (06/21/2025 11:45 AM CLINICAL CODER) Only the most recent of2 resultswithin the time period is included. ComponentValueRef RangeTest MethodAnalysis TimePerformed AtPathologist Signature Urine CulturePROTEUS MIRABILIS >100,000 cfu/mL (A)06/23/2025 7:04 AM [...] (MCG/ML) <=20 mcg/mL: Susceptible Authorizing ProviderResult TypeResult StatusDesireEugene SantosAReillyLAB MICROBIOLOGY - GENERAL ORDERABLESFinal ResultPerforming OrganizationAddress City/State/ZIP CodePhone Number [facility] [address] [place] [address], [place] [facility] [place] [address] [place] [address] * (ABNORMAL) Urinalysis, with Microscopic: Urine, Midstream (06/21/2025 11:45 AM CLINICAL CODER)ComponentValueRef RangeTest MethodAnalysis TimePerformed AtPathologist SignatureSourceUrine, Urine, Bbzbdmqxb02/18/2025 1:49 PM CSTOWATClarityCloudy (A)Clear06/21/2025 2:01 PM NRXLJKOShphhAlgntv89/18/2025 2:01 PM CSTOWAT Comment: ----REFERENCE VALUE---- Colorless Yellow Maren OeslrYmqbacjaKnfmaiho18/18/2025 2:01 PM CSTOWATNitrite, UNegativeNegative 06/21/2025 2:01 PM CSTOWATLeukocyte EsteraseLarge(A)Qbzmekej00/18/2025 2:01 PM CSTOWATProtein, UTracemg/dL06/21/2025 2:01 PM CSTOWATComment: ----REFERENCE VALUE---- Negative Trace Pkbbngf319(A)Negative mg/dL06/21/2025 2:01 PM CSTOWATKetoneNegativeNegative mg/dL06/21/2025 2:01 PM JTAHIFNQmnrfywbcNzgvxzypKfcdsxzb47/18/2025 2:01 PM CLINICAL CODER OWATpH6.55.0 - 8.011 2:01 PM CSTOWATSpecific Gravity1.0171.001 - 1.035 06/21/2025 2:01 PM CSTOWATUrobilinogen0.20.2 - 1.0 mg/dL06/21/2025 2:01 PM CLINICAL CODER OWATWhite Blood Cells>100(A)/hpf06/21/2025 2:01 PM CSTOWATComment: ----REFERENCE VALUE---- Males: 0-3 Females: 0-10 Unknown: 0-10 Red Blood Cells3-10(A)0 - 2 /hpf06/21/2025 2:01 PM CSTOWATDysmorphic Red Blood Cells<=25<=25 %06/21/2025 2:01 PM CSTOWATSquamous Tyjbt95-18/hpf06/21/2025 2:01 PM CSTOWATSpecimen (Source)Anatomical Location / LateralityCollection Method / VolumeCollection TimeReceived TimeUrine (Urine, Midstream)06/21/2025 11:45 AM CST06/21/2025 1:33 PM CLINICAL CODER Narrative Authorizing ProviderResult TypeResult StatusDesiredede ANGEL, P.A.-C.LAB URINE ORDERABLESFinal ResultPerforming OrganizationAddressCity/State/ZIP Code Phone Number [facility] [address] [place] [address], [facility] OW[facility] [place] [address] [place] [address] * (ABNORMAL) Albumin, Random, Urine (06/10/2025 2:36 PM CLINICAL CODER)ComponentValueRef RangeTest MethodAnalysis TimePerformed AtPathologist QehmzjkgqQnerxsheugdl73.0 mg/L108/10/2024 6:16 PM LENAUNZTstxxodldu71ny/dL06/10/2025 6:16 PM CSTOWAT Albumin/Creatinine Ratio91(H)<25 mg/g108/10/2024 6:16 PM CSTOWATSpecimen (Source)Anatomical Location / LateralityCollection Method / VolumeCollection TimeReceived TimeUrine (Urine, Midstream)06/10/2025 2:36 PM CST06/10/2025 5:52 PM CLINICAL CODER Narrative Authorizing ProviderResult TypeResult StatusDesiredede ANGEL, P.A.-C.LAB URINE ORDERABLESFinal ResultPerforming OrganizationAddressCity/State/ZIP Code Phone Number [facility] [address] [place] [address], [facility] OW[facility] [place] [address] [place] [address] * (ABNORMAL) Hemoglobin A1c (06/09/2025 9:44 AM CLINICAL CODER)ComponentValueRef RangeTest MethodAnalysis TimePerformed AtPathologist SignatureHemoglobin A1c, B6.7(H)4.2 - 5.6 %06/09/2025 11:23 AM CSTOWATComment: Hemoglobin A1c values greater than or equal to 6.5 percent are diagnostic for diabetes mellitus. ??Diagnosis should be confirmed by repeat testing. ??In diabetic patients, HbA1c goals should be discussed with healthcare provider. Specimen (Source)Anatomical Location / LateralityCollection Method / Volume Collection TimeReceived TimeBlood (Blood, Venous)06/09/2025 9:44 AM CLINICAL CODER 06/09/2025 10:59 AM CLINICAL CODER Narrative Authorizing ProviderResult TypeResult StatusDesiree Mami ANGEL, P.A.-C.LAB BLOOD ADD-ONFinal ResultPerforming OrganizationAddressCity/State/ZIP CodePhone Number [facility] [address] [place] [address], [facility] [place] [address], [place] [address] * (ABNORMAL) Urinalysis with Microscopic if Indicated: Urine, Midstream (06/02/2025 2:56 PM CDT)ComponentValueRef RangeTest MethodAnalysis Time Performed AtPathologist SignatureSourceUrine, Urine, Cejetnhqs02/30/2025 3:16 PM CDTOWATClarityTurbid(A)Clear06/02/2025 3:16 PM FWNFEYNCfqwgEaxwtx17/30/2025 3:16 PM CDTOWATComment: ----REFERENCE VALUE---- Colorless Yellow Maren BloodTrace(A)Rpknsjug25/30/2025 3:16 PM IEWVIDBZqqccixZqgsmczvMbisljxl69/30/2025 3:16 PM CDTOWATLeukocyte EsteraseLarge(A)Lutfsusc64/30/2025 3:16 PM CDTOWAT Purofms77(A)mg/dL06/02/2025 3:16 PM CDTOWATComment: ----REFERENCE VALUE---- Negative Trace GlucoseNegativeNegative mg/dL06/02/2025 3:16 PM CDTOWATKetoneNegativeNegative mg/dL06/02/2025 3:16 PM CJJPVEGZunyodzhfIngszjphFgbdjftl42/30/2025 3:16 PM CDT OWATpH6.05.0 - 8.010 3:16 PM CDTOWATSpecific Gravity1.0161.001 - 1.035 06/02/2025 3:16 PM CDTOWATUrobilinogen1.00.2 - 1.0 mg/dL06/02/2025 3:16 PM CDT OWATSpecimen (Source)Anatomical Location / LateralityCollection Method / Volume Collection TimeReceived TimeUrine (Urine, Midstream)06/02/2025 2:56 PM CDT 06/02/2025 3:12 PM CDT Narrative Authorizing ProviderResult TypeResult StatusZach Kathleen D.O.LAB URINE ORDERABLESFinal ResultPerforming OrganizationAddressCity/State/ZIP CodePhone Number [facility] [address], [place] [address], [facility] OWAT [facility] [place] [address], [place] [address] * (ABNORMAL) Microscopic Automated (06/02/2025 2:56 PM CDT)ComponentValueRef RangeTest MethodAnalysis TimePerformed AtPathologist SignatureWhite Blood Cells>100(A)/hpf06/02/2025 4:17 PM CDTOWATComment: ----REFERENCE VALUE---- Males: 0-3 Females: 0-10 Unknown: 0-10 Red Blood Osahw53-86(A)0 - 2 /hpf06/02/2025 4:17 PM CDTOWATDysmorphic Red Blood Cells<=25<=25 %06/02/2025 4:17 PM CDTOWATHyaline Casts1-3/lp06/02/2025 4:17 PM CDTOWATSquamous Cells4-10/hpf06/02/2025 4:17 PM CDTOWATBacteriaPresent(A)None Seen06/02/2025 4:17 PM CDTOWATSpecimen (Source)Anatomical Location / Laterality Collection Method / VolumeCollection TimeReceived RoacBejhz77/30/2025 2:56 PM CDT1 3:12 PM CDT Narrative Authorizing ProviderResult TypeResult StatusZach Kathleen D.O.LAB URINE ORDERABLESFinal ResultPerforming OrganizationAddressCity/State/ZIP CodePhone Number [facility] [address] [place] [address], [place] [facility] [place] [address] [place] [address] * Hepatitis B Surface Antigen (11/25/2024 11:15 AM CDT)ComponentValueRef Range Test MethodAnalysis TimePerformed AtPathologist SignatureHBs Antigen, S RieygbxaEafcyers00/24/2025 3:43 PM CDTSDSCSpecimen (Source)Anatomical Location / LateralityCollection Method / VolumeCollection TimeReceived TimeBlood (Blood, Venous)11/25/2024 11:15 AM CDT11/25/2024 3:00 PM CDT Narrative Authorizing ProviderResult TypeResult StatusNayeli Funez M.D.LAB MICROBIOLOGY - BLOOD ORDERABLESFinal ResultPerforming OrganizationAddressCity/State/ZIP Code Phone Number [facility] [address] [place] [address] [facility] [address] [place] [address] from Last 3 Months or Most Recently Relevant to Health Maintenance Insurance * Guarantor: Sarahy Leigh TypeRelation to PatientDate of BirthPhone Billing AddressPersonal/WhxdwpRguz[birth year][address] [place] [address] [place] [address] Care Teams Team MemberRelationshipSpecialtyStart DateEnd Date Jo Bolaños MPAS, P.A.-C. [address] [place], [place] [address]dede [place] CHARITY [id number] PCP - GeneralInternal Tpftwhjw78/10/25
--- NOTE | 2025-08-02 19:05 | ED.GENADULT ---
HPI - General Adult General Date Seen: 08/02/25 Chief complaint: Chest Pain Stated complaint: jaw pain Time Seen by Provider: 08/02/25 19:03 History of Present Illness HPI narrative: 78 yo F with a past medical history that includes GERD, hypertension, hyperparathyroidism, depression, coronary artery disease with pacemaker/defibrillator, CHF, type 2 diabetes, chronic kidney disease, hysterectomy, Per medical record from [facility] she was seen in the ER in [place] in March 2025 for nausea and dizziness. During that visit she did have hypertension noted with triage blood pressure of 219/111. Blood pressure trended down to about 160/80 without pharmacologic intervention, per the ER note. EKG showed an atrial paced rhythm. Head CT was normal. 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 Also less than 50% stenosis at the origin of left internal carotid. BUN was 31, creatinine 1.48. Urinalysis was negative for protein or nitrite. White count was 11, hemoglobin 11.1. High sensitivity troponin was 18. The patient has gotten her long-term cardiac care through [facility]. She apparently does have coronary disease and CHF. She had a pacemaker defibrillator placed about 10 years ago and is due to get it replaced this year. This past year her old doctor retired and she switched to a new primary care to the [facility] system is now in the process of changing all of her cardiology care to [facility]. She has an appointment coming up with them in a couple of months but has not seen a [facility] differential repairer yet. She does not recall when she last had a stress test or angiogram for her heart. It sounds like there has not been any concern for coronary artery disease or new blockages for several years. She has been working with her doctor because she has been having some unusual dizzy spells for the past several months. No clear explanation. Last time she saw her doctor, a couple of months ago her blood pressure was running high (typically 150 systolic) so her doctor had the patient increase her dose of amlodipine from 10 mg per day up to 20 mg per day. Her other blood pressure medications are stable. She is chronically on Lasix for the past year apparently after having had some lower extremity edema. She has been healthy and well lately. This morning she woke up and she was having a bad sharp pain in her left jaw (along the body of the left mandible. She took some Tylenol for this morning and actually felt better. She was doing well and not having any pain around lunch her this afternoon. She went grocery shopping at [employer] today around 4 and after walking around the grocery store for about half an hour she had more very sharp and uncomfortable pain in her left jaw. The pain radiates a little bit in the left side of her neck, along the sternocleidomastoid muscle. No clear trigger for it. She does not have any toothache or dental swelling. No fever. No sore throat. No facial pain. No pain in her TMJ. She did recently have any earache but does not have 1 today. No new trouble with her hearing. No rashes. No neck pain. No known injury. No headache. She is concerned that her jaw pain could be an angina symptom. However she has never had jaw pain with her other heart attacks. She is not having any chest pain, shortness of breath, back pain. She is not having any pain or numbness down her arm. No nausea. No palpitations. No new swelling in her legs. After pain came back at the grocery store she went home. She took a couple of her at-home nitros and they may have helped a little, not definitely. Because the pain persisted her family called 911. She received more nitro spray per EMS as well as a dose of aspirin per EMS. As she arrives here her pain is still pretty severe in the left jaw. No other pain. Related Data Home Medications ?Medication ?Instructions ?Recorded ?Confirmed allopurinol 100 mg tablet 200 mg PO DAILY 05/07/23 08/21/24 aspirin 81 mg tablet,delayed 81 mg PO DAILY 05/07/23 08/21/24 release (Adult Aspirin Regimen) carvedilol 6.25 mg tablet 6.25 mg PO BID 05/07/23 08/21/24 guanfacine 1 mg tablet 0.5 mg PO HS 05/07/23 08/21/24 isosorbide mononitrate 120 mg 120 mg PO DAILY 05/07/23 08/21/24 tablet,extended release 24 hr lisinopril 10 mg tablet 10 mg PO BID 05/07/23 08/21/24 nitroglycerin 0.4 mg sublingual 0.4 mg sublingual Q5M PRN 05/07/23 08/21/24 tablet omeprazole 40 mg capsule,delayed 40 mg PO DAILY 05/07/23 08/21/24 release oxybutynin chloride 5 mg 5 mg PO DAILY 05/07/23 08/21/24 tablet,extended release 24 hr carvedilol 12.5 mg tablet 12.5 mg PO BID 08/21/24 08/21/24 furosemide 20 mg tablet 20 mg PO QAM 08/21/24 08/21/24 rosuvastatin 10 mg tablet 10 mg PO QPM 08/21/24 08/21/24 spironolactone 25 mg tablet 25 mg PO DAILY 08/21/24 08/21/24 Previous Rx's ?Medication ?Instructions ?Recorded ondansetron 4 mg disintegrating 4 mg PO Q8H PRN nausea and 09/27/23 tablet vomiting #10 tabs Allergies Allergy/AdvReac Type Severity Reaction Status Date / Time amlodipine AdvReac Dizziness Verified 08/02/25 21:51 nortriptyline (From Pamelor) AdvReac syncope Verified 08/02/25 21:51 [facility] Medical History (Updated 08/02/25 @ 23:18 by Jay Renee MD) H/O coronary angiogram ?Z98.890 - Other specified postprocedural states (ICD-10) Hyperparathyroidism ?E21.3 - Hyperparathyroidism, unspecified (ICD-10) Dyspepsia ?R10.13 - Epigastric pain (ICD-10) Depression ?F32.A - Depression, unspecified (ICD-10) Cardiac defibrillator in place ?Z95.810 - Presence of automatic (implantable) cardiac defibrillator (ICD-10) History of pacemaker ?Z95.0 - Presence of cardiac pacemaker (ICD-10) Obesity ?E66.9 - Obesity, unspecified (ICD-10) Chronic dyspnea ?R06.09 - Other forms of dyspnea (ICD-10) Diabetes mellitus ?E11.9 - Type 2 diabetes mellitus without complications (ICD-10) Surgical History H/O abdominal hysterectomy ?Z90.710 - Acquired absence of both cervix and uterus (ICD-10) History of esophagogastroduodenoscopy (EGD) ?Z98.890 - Other specified postprocedural states (ICD-10) History of ?Z98.891 - History of uterine scar from previous surgery (ICD-10) H/O parathyroidectomy ?E89.2 - Postprocedural hypoparathyroidism (ICD-10) Family History (Updated 05/07/23 @ 16:26 by Daquan Cook MD) Brother Alcohol dependence Colon cancer Mother Diabetes Heart disease Stroke Daughter Diabetes Father Heart disease Social History (Updated 05/07/23 @ 16:28 by Daquan Cook MD) Narrative: Patient lives with her in [place]. She also has a daughter who lives downstairs in her house. Healthcare power of electronic publications specialist is her Wero and daughter Aleshia. Code status is full code for witnessed arrest and DNR for unwitnessed arrest. She does not smoke. She does not drink alcohol. What is your current living situation?: I presently have a place to live Problems where you live: no known problems Problems where you live details: No known problems In the past 12 months, utilities in danger of being shut off: no In past 12 months, lack of transportation kept you from medical appts, meetings, work, or getting things needed for daily living: no In the past 12 mos, have been you worried that your food would run out before you had money to buy more?: never true In the past 12 mos, the food you bought just didn't last and you didn't have money to buy more?: never true Highest level of school completed/degree received: 12th grade, no diploma Smoking Status: Never smoker Do you use any of these nicotine containing products: None How often do you have a drink containing alcohol: never How often do you have six or more drinks on one occasion: Never AUDIT-C Alcohol total score: 0 Non-prescribed substance use: denies use Caffeine: Yes How often does anyone, including family, friends and others, physically hurt you: never How often does anyone, including family, friends and others, insult or talk down to you: never How often does anyone, including family, friends and others, threaten you with harm: never How often does anyone, including family, friends and others, scream or curse at you: never service: No Exam Narrative: Exam Narrative: Constitutional: Appears well-developed and well-nourished. Alert. Conversant. Non toxic. HENT: Head: Atraumatic. Nose: Nose normal. Mouth/Throat: Oral mucosa is clear . Mucous membranes are moist. no trismus. Pharynx normal. Tonsils symmetric. No tonsillar enlargement, erythema, or exudate. She has some fillings and crowns on the molars of her left hip but no sign of dental infection. No facial swelling or redness. No rash. Left TM is normal. Mastoid is normal. No tenderness or pain over the left yazdanism or temporal artery. No TMJ pain. Eyes: Conjunctivae normal. EOM normal. Pupils equal, round, and reactive to light. No scleral icterus. Neck: Normal range of motion. Neck supple. No tracheal deviation present. No carotid bruit. Cardiovascular: Normal rate, regular rhythm. No gallop. No friction rub. No murmur heard. Symmetric radial and DP artery pulses . Pacemaker in place in left upper chest. Overlying skin looks good. Pulmonary/Chest: Effort normal. No stridor. No respiratory distress. No wheezes. No rales. No rhonchi . No tenderness. Abdominal: Soft.No distension. No mass. No tenderness. No rebound. No guarding. Musculoskeletal: RUE: Normal range of motion. No tenderness. No deformity LUE: Normal range of motion. No tenderness. No deformity RLE: Normal range of motion. No edema. No tenderness. No deformity LLE: Normal range of motion. No edema. No tenderness. No deformity Neurological: Alert and oriented to person, place, and time. Normal strength. CN II-VII intact. No sensory deficit. GCS eye subscore is 4. GCS verbal subscore is 5. GCS motor subscore is 6. Normal coordination Skin: Skin is warm and dry. No rash noted. No pallor. Normal capillary refill. Psychiatric: Normal mood. Normal affect. Const: Vital Signs, click to edit/add: Vital Signs - 24 hr 08/02/25 19:05 08/02/25 19:14 08/02/25 19:15 Temperature 98.2 F Pulse Rate 69 70 Pulse Rate [Right Pulse Oximeter] 71 Respiratory Rate 18 19 10 L Blood Pressure Blood Pressure [Ri ght Upper Arm] 215/101 H Pulse Oximetry 96 98 98 Oxygen Delivery Me thod Room Air 08/02/25 19:30 08/02/25 19:45 08/02/25 20:00 Temperature Pulse Rate 70 69 70 Pulse Rate [Right Pulse Oximeter] Respiratory Rate 11 L 11 L 13 Blood Pressure 197/96 H Blood Pressure [Ri ght Upper Arm] Pulse Oximetry 98 97 97 Oxygen Delivery Me thod 08/02/25 20:01 08/02/25 20:34 08/02/25 20:45 Temperature Pulse Rate 70 73 70 Pulse Rate [Right Pulse Oximeter] Respiratory Rate 42 H 15 14 Blood Pressure Blood Pressure [Ri ght Upper Arm] Pulse Oximetry 98 95 98 Oxygen Delivery Me thod 08/02/25 20:51 08/02/25 21:00 08/02/25 21:15 Temperature Pulse Rate 71 72 70 Pulse Rate [Right Pulse Oximeter] Respiratory Rate 14 Blood Pressure 203/115 H Blood Pressure [Ri ght Upper Arm] Pulse Oximetry 98 100 100 Oxygen Delivery Me thod 08/02/25 21:39 Temperature Pulse Rate Pulse Rate [Right Pulse Oximeter] Respiratory Rate Blood Pressure Blood Pressure [Ri ght Upper Arm] Pulse Oximetry 96 Oxygen Delivery Me thod Course Vital Signs Vital signs: Initial Vital Signs Temperature 98.2 F 08/02/25 19:05 Temperature Source Temporal Artery Scan 08/02/25 19:05 Pulse Rate 71 08/02/25 19:05 Pulse Rhythm Regular 08/02/25 19:05 Pulse Strength 3+ Normal 08/02/25 19:05 Respiratory Rate 18 08/02/25 19:05 Blood Pressure 215/101 H 08/02/25 19:05 Blood Pressure Mean 139 H 08/02/25 19:05 Blood Pressure Position Supine 08/02/25 19:05 Pulse Oximetry 96 08/02/25 19:05 Oxygen Delivery Method Room Air 08/02/25 19:05 Vital Signs Temperature 98.2 F 08/02/25 19:05 Pulse Rate 71 08/02/25 19:05 Respiratory Rate 18 08/02/25 19:05 Blood Pressure 215/101 H 08/02/25 19:05 Pulse Oximetry 96 08/02/25 19:05 Oxygen Delivery Method Room Air 08/02/25 19:05 Temperature 98.2 F 08/02/25 19:05 Pulse Rate 70 08/02/25 21:15 Respiratory Rate 14 08/02/25 20:51 Blood Pressure 203/115 H 08/02/25 20:51 Pulse Oximetry 96 08/02/25 21:39 Oxygen Delivery Method Room Air 08/02/25 19:05 Medications Administered Medications: Discontinued Medications Generic Name Dose Route Start Last Admin Trade Name Rajwinder PRN Reason Stop Dose Admin Fentanyl 50 mcg 08/02/25 19:33 08/02/25 20:54 Fentanyl 100 Mcg/2 Ml Inj IVP 08/02/25 19:34 50 mcg ONCE ONE Administration Ondansetron HCl 4 mg 08/02/25 19:33 08/02/25 20:55 Ondansetron 2 Mg/Ml Inj IVP 08/02/25 19:34 4 mg ONCE ONE Administration Medical Decision Making MDM Narrative Medical decision making narrative: This patient presents to the ER today for evaluation of pain involving her the left mandible and radiating down into her left neck. She had an episode this morning they got better with Tylenol another episode of the came back this afternoon while she was shopping [employer] and has been more persistent and severe.. Differential was broad. She is not having any chest pain but considered the jaw pain is a possible anginal equivalent. We considered possible ACS, however workup with EKG and delta high sensitivity troponins is normal. Given time since onset of symptoms, I do not think the patient needs to be admitted for further sets of enzymes. She does have a known history of coronary disease with previous stents and a defibrillator. I did discuss her presentation with cardiology for [facility] (who have her old records). The differential repairer and I agree that this point since she is ruled out, it is reasonable for discharge home with careful return precautions. Cardiology would recommend that she does arrange some outpatient follow-up with a nuclear stress test. I discussed this plan of care with patient and her son and they will try to arrange it through their new primary care provider (who is in the [facility]), but if they are unable to do that they will follow-up with [facility]. EKG shows no evidence for pericarditis. Clinical presentation not suggestive of myocarditis. Chest x-ray shows no evidence for pneumonia, pneumothorax, pulmonary edema, pleural effusion, rib fracture, cardiomegaly. Consider possible carotid dissection causing her neck and jaw pain. CT angio her head neck is obtained and shows no evidence for acute dissection. It does show previously known carotid stenosis less than 50%. This is known to the patient and she has already been following up with that with her doctor. She is not having any chest pain, shortness of breath, hypoxia. No wheezing or bronchospasm to suggest COPD/asthma. No signs of shingles, facial cellulitis, dental infection, TMJ pain, Submandibular swelling, pharyngitis. She is not having any pain near the yazdanism to suggest temporal arteritis. CT angio of her neck is negative for any carotid dissection or other acute cause for pain. Also no evidence for other deep space neck infection. With reasonable clinical confidence, I think the patient is safe for outpatient follow up. Discussed return precautions. Questions answered. Patient voices comfort with the plan. Lab Data Labs: Lab Results 08/02/25 08/02/25 08/02/25 Range/Units 19:40 20:01 22:00 WBC 10.61 (4.50-11.00) K/uL RBC 3.52 L (4.00-5.20) m/uL Hgb 11.4 L (12.0-16.0) gm/dL Hct 35.5 (33.0-51.0) % MCV 101 H (80-100) fL MCH 32 (26-34) pg MCHC 32 (32-36) gm/dL RDW Coeff of Carol 14.2 (11.5-15.5) % Plt Count 282 (140-440) K/uL Neut % (Auto) 58.5 (42.0-72.0) % Lymph % (Auto) 30.0 (20-44) % Howard % (Auto) 5.5 (0.0-11.0) % Eos % (Auto) 5.5 (0.0-7.0) % Baso % (Auto) 0.2 (0.0-3.0) % Neut # (Auto) 6.22 (1.7-7.0) K/uL Lymph # (Auto) 3.18 H (0.90-2.90) K/uL Howard # (Auto) 0.60 (0.00-0.90) K/UL Eos # (Auto) 0.58 H (0.00-0.50) K/uL Baso # (Auto) 0.02 (0.00-0.30) K/uL Abs Immat Gran (auto) 0.03 (0.00-0.30) K/uL Imm/Tot Granulo (auto) 0.3 % Sodium 142 (135-149) mmol/L Potassium 4.9 (3.6-5.1) mmol/L Chloride 106 (96-114) mmol/L Carbon Dioxide 25 (20-32) mmol/L Anion Gap 11 (7-15) mEq/L BUN 30 (7-30) mg/dL Creatinine 1.3 (0.5-1.5) mg/dL Estimated Creat Clear 32.85 Estimated GFR 42 ml/min Glucose 154 H (60-115) mg/dL Calcium 10.4 (8.4-10.6) mg/dL POC Troponin I High Sensi 7.1 12.9 (2.9-13.0) pg/mL Imaging Data CT scan - head: Attestation: I have reviewed the pertinent imaging results. Radiologist's impression: IMPRESSION: 1. No acute intracranial abnormality. 2. Mild generalized volume loss and changes of chronic small vessel ischemic disease. Chest x-ray: Attestation: I have reviewed the pertinent imaging results. Radiologist's impression: IMPRESSION: No acute or significant findings. CTA head and CTA neck: Attestation: I have reviewed the pertinent imaging results. Radiologist's impression: Preliminary Report: CTA head: No large vessel occlusion. CTA neck: [id number] stenosis in the proximal left internal carotid artery. No high-grade carotid artery stenosis, dissection or occlusion. Bilateral vertebral arteries are patent. Left vertebral artery is dominant in nature. Final CTA head: There is scattered intracranial atherosclerotic disease. There is normal opacification of the intracranial vasculature. There is no large vessel occlusion or significant intracranial stenosis. No aneurysm is identified. CTA neck: There is carotid atherosclerosis bilaterally. There is atherosclerotic plaque in the proximal right ICA resulting in a mild stenosis, less than 50% by NASCET. There is atherosclerotic plaque in the proximal left ICA resulting in a moderate stenosis, 50% by NASCET. There is no significant vertebral artery stenosis or dissection. IMPRESSION: No acute intracranial abnormality at CTA. Mild proximal right ICA stenosis, less than 50% by NASCET. Moderate proximal left ICA stenosis, 50% by NASCET. ECG Data Attestation: I personally reviewed and interpreted this ECG as follows: Interpretation: Atrial paced rhythm with prolonged AV conduction. Rate 72 LA interval 220. Normal QRS axis. No ST segment elevation or depression. The QT 380, QTC 416 Discharge Plan Discharge Clinical Impression: Jaw pain Patient Disposition: Home, Self-Care Condition: Stable Instructions: Chest Pain (DC), Atypical Facial Pain (ED) Additional Instructions: As we discussed, please come back to the ER right away if you have worsening symptoms such as more episodes of jaw pain or any episodes of chest pain, trouble breathing. Please follow-up with your regular doctor as soon as you were able for recheck and to arrange repeat nuclear stress test for your heart. Since you have not seen the cardiology team at [facility] yet, I did have a conversation with the differential repairer from [facility]. They may contact he was well to follow-up about her symptoms and if your regular doctor cannot arrange a stress test, the differential repairer through [facility] might be able to help you arrange it. Activity Level: No Restrictions Discharge Diet: Regular Prescriptions: No Action carvedilol 12.5 mg tablet 12.5 mg PO BID spironolactone 25 mg tablet 25 mg PO DAILY furosemide 20 mg tablet 20 mg PO QAM rosuvastatin 10 mg tablet 10 mg PO QPM carvedilol 6.25 mg tablet 6.25 mg PO BID allopurinol 100 mg tablet 200 mg PO DAILY omeprazole 40 mg capsule,delayed release(DR/EC) 40 mg PO DAILY isosorbide mononitrate 120 mg tablet extended release 24 hr 120 mg PO DAILY lisinopril 10 mg tablet 10 mg PO BID guanfacine 1 mg tablet 0.5 mg PO HS nitroglycerin 0.4 mg tablet, sublingual 0.4 mg sublingual Q5M PRN oxybutynin chloride 5 mg tablet extended release 24hr 5 mg PO DAILY aspirin [Adult Aspirin Regimen] 81 mg tablet,delayed release (DR/EC) 81 mg PO DAILY ondansetron 4 mg tablet,disintegrating 4 mg PO Q8H PRN (Reason: nausea and vomiting) Qty: 10 0RF Follow Up/Referrals: Anthony Ortiz MD [Referring, Family Practice] Stand Alone Forms: [employer] Info Instructions
--- NOTE | 2025-08-02 19:34 | CT_ITS ---
Patient: ALBERTO OTRRES Facility:?[facility] RIS Patient ID:?[id number] Site Patient ID:?[id number]. Site :?[id number] Study:?CT-Neck Angio 95CC ISOVUE NONACUTE-08/02/2025 8:43:03 PM Ordering Physician:Adarsh Thompson Final Report: INDICATION: Headache, neck pain. TECHNIQUE: CTA head using intravenous contrast with bolus tracking, 3D angiographic rendering using maximum intensity projection (MIP) and images permanently archived. CTA neck using intravenous contrast with bolus tracking, 3D angiographic rendering using maximum intensity projection (MIP) and images permanently archived. FINDINGS: CTA head: There is scattered intracranial atherosclerotic disease. There is normal opacification of the intracranial vasculature. There is no large vessel occlusion or significant intracranial stenosis. No aneurysm is identified. CTA neck: There is carotid atherosclerosis bilaterally. There is atherosclerotic plaque in the proximal right ICA resulting in a mild stenosis, less than 50% by NASCET. There is atherosclerotic plaque in the proximal left ICA resulting in a moderate stenosis, 50% by NASCET. There is no significant vertebral artery stenosis or dissection. IMPRESSION: No acute intracranial abnormality at CTA. Mild proximal right ICA stenosis, less than 50% by NASCET. Moderate proximal left ICA stenosis, 50% by NASCET. Please note that all CT scans at this facility use dose modulation, iterative reconstruction, and/or weight-based dosing when appropriate to reduce radiation dose to as low as reasonably achievable. Dictated by Chris Lopez MD @ 08/02/2025 10:01:05 PM Signed by:?Chris Lopez MD @08/02/2025 10:01:05 PM (Electronic Signature)
--- NOTE | 2025-08-02 19:34 | CRLHL7_ITS ---
For Patients: As a result of the Century Cures Act, medical imaging exams and procedure reports are released immediately into your electronic medical record. You may view this report before your referring provider. If you have questions, please contact your health care provider. INDICATION: Left jaw and neck pain. TECHNIQUE: CT head without contrast. COMPARISON: None. FINDINGS: Mild generalized volume loss and ill-defined low-attenuation in the periventricular and subcortical white matter. Intracranial atherosclerosis. No mass effect or midline shift. No hydrocephalus. No CT evidence of acute hemorrhage or infarction. No abnormal extra-axial fluid collection. Bone windows show no acute calvarial fracture. Left mastoidectomy. Paranasal sinuses and orbits as imaged are otherwise unremarkable. IMPRESSION: 1. No acute intracranial abnormality. 2. Mild generalized volume loss and changes of chronic small vessel ischemic disease. Dictated by Jony Castro MD @ 08/02/2025 8:52:24 PM Please note that all CT scans at this facility use dose modulation, iterative reconstruction, and/or weight-based dosing when appropriate to reduce radiation dose to as low as reasonably achievable. Dictated by: Jony Castro MD @ 08/02/2025 20:52:40 (Electronically Signed)
--- NOTE | 2025-08-02 19:34 | CRLHL7_ITS ---
For Patients: As a result of the Cures Act, medical imaging exams and procedure reports are released immediately into your electronic medical record. You may view this report before your referring provider. If you have questions, please contact your health care provider. INDICATION: Left jaw and neck pain. TECHNIQUE: Chest 2 views. COMPARISON: August 21, 2024. FINDINGS: Cardiovascular and mediastinum: Stable heart size and vasculature. Unchanged left chest wall pacemaker device. Lungs and pleural spaces: Right midlung calcified granuloma.. No sign of infiltrate or mass. No sign of pleural effusion. No pneumothorax. Bones and soft tissues: No significant findings. IMPRESSION: No acute or significant findings. Dictated by Tin Cotton MD @ 08/02/2025 8:51:30 PM (Electronically Signed)
[2025-08-02 19:52] LABS: Hematocrit* 35.5 % (33.0-51.0); Hemoglobin* 11.4 gm/dL (12.0-16.0); Immature Granulocytes Abs Auto 0.03 K/uL (0.00-0.30); Immature Granulocytes Pct Auto 0.3 %; Lymphocytes Absolute Auto 3.18 K/uL (0.90-2.90); Mean Corpuscular HGB Conc 32 gm/dL (32-36); Mean Corpuscular Hemoglobin 32 pg (26-34); Mean Corpuscular Volume 101 fL (80-100); RDW Coefficient of Variation % 14.2 % (11.5-15.5); Red Blood Count* 3.52 m/uL (4.00-5.20); Slide Review Reflex No; White Blood Count* 10.61 K/uL (4.50-11.00)
[2025-08-02 19:59] LABS: Chloride* 106 mmol/L (96-114); Potassium* 4.9 mmol/L (3.6-5.1); Sodium* 142 mmol/L (135-149)
[2025-08-02 20:02] LABS: Anion Gap 11 mEq/L (7-15); Blood Urea Nitrogen* 30 mg/dL (7-30); Calcium* 10.4 mg/dL (8.4-10.6); Carbon Dioxide* 25 mmol/L (20-32); Creatinine* 1.3 mg/dL (0.5-1.5); Est. Creatinine Clearance* 32.85; Estimated Glomerular Filt Rate 42 ml/min; Glucose* 154 mg/dL (60-115)
[2025-08-02] MEDS: ONDANSETRON 2 MG/ML inj 4 MG IVP (20:55)
== END 2025-08-02 23:44 | disposition home or self-care (01) ==
PROVIDERS: Emergency Provider Emergency Medicine
DX: R68.84 Jaw pain (principal); I65.23 Occlusion and stenosis of bilateral carotid arteries; E11.22 Type 2 diabetes mellitus with diabetic chronic kidney disease; I13.0 Hypertensive heart and chronic kidney disease with heart failure and stage 1 through stage 4 chronic kidney disease, or unspecified chronic kidney disease; N18.9 Chronic kidney disease, unspecified; I50.9 Heart failure, unspecified; I25.10 Atherosclerotic heart disease of native coronary artery without angina pectoris; Z79.82 Long term (current) use of aspirin; Z95.810 Presence of automatic (implantable) cardiac defibrillator; Z95.5 Presence of coronary angioplasty implant and graft
CPT/HCPCS: 36415; 70450; 70496; 70498; 71046; 80048; 84484; 85025; 93005; 96374; 96375; 99284; 99285; J2405; J3010; Q9967